=== PATIENT | male | born 1955 | race African-American/Black ===

== ENCOUNTER 2016-12-07 08:04 | Emergency (ER) | payer MEDICARE ==
[~2016-12-07] VITALS: Ht 172.7 cm; Wt 108.4 kg
[~2016-12-07 08:04] MED LIST: AMLO10TA2 PO; AMOX875T PO; ASPI81TA2 PO; ATOR40TA59 PO; FURO-69 PO; LOSA50TA6 PO; MELO-150 PO; METO50TA2 PO; OMEP20TA PO; PHEN118S5 PO; POTA10CA PO; TAMS0.4C2 PO
[2016-12-07 08:25] VITALS: BP 164/84
[2016-12-07] MEDS ORDERED: HYDR-971 PO (08:29)
[2016-12-07] MEDS ORDERED: PENI500T PO (08:29)
[2016-12-07] MEDS ORDERED: PENICILLIN V K 250 MG TABLET. PO ONE (08:30)
--- NOTE | 2016-12-07 08:30 | PHYS DOC ---
Past Medical History Past Medical History: High Cholesterol, Hypertension, Other Additional Past Medical Histor: urinary retention Past Surgical History: No Surgical History Alcohol Use: Occasionally Drug Use: None Adult General Chief Complaint Chief Complaint: DENTAL PROBLEM HPI HPI Patient is a 61 year old male who presents with dental pain for one week. Patient states that his left rear lower molar has been painful throughout the week. Patient started getting mild swelling along his left jaw. Patient states that the pain currently is 10 out of 10. Patient states that the pain worsens with direct pressure to the tooth. Patient has not taken any medications to help with symptoms. Patient does not have a dentist at this time. Patient denies any other complaints. Review of Systems Review of Systems Constitutional: Denies fever or chills [] Eyes: Denies change in visual acuity, redness, or eye pain [] HENT: Dental pain, Denies nasal congestion or sore throat [] Respiratory: Denies cough or shortness of breath [] Cardiovascular: No additional information not addressed in HPI [] GI: Denies abdominal pain, nausea, vomiting, bloody stools or diarrhea [] Musculoskeletal: Denies back pain or joint pain [] Integument: Denies rash or skin lesions [] Neurologic: Denies headache, focal weakness or sensory changes [] Current Medications Current Medications Current Medications Medications (Trade) Dose Ordered Sig/Stacey Start Time Stop Time Status Last Admin Dose Admin Penicillin V Potassium (Veetid) 500 mg 1X ONCE 12/07/16 08:30 12/07/16 08:31 DC 12/07/16 09:11 500 MG Allergies Allergies Allergies Coded Allergies Type Severity Reaction Last Updated Verified No Known Drug Allergies 11/24/15 No Physical Exam Physical Exam Constitutional: Well developed, well nourished, no acute distress, non-toxic appearance. [] HENT: Normocephalic, atraumatic, bilateral external ears normal, mild left history of mandibular swelling, tenderness to palpation over tooth #18, no gingival fluctuance, gingival tenderness present near tooth #18, oropharynx moist, no oral exudates, nose normal. [] Eyes: PERRLA, EOMI, conjunctiva normal, no discharge. [] Neck: Normal range of motion, no tenderness, supple, no stridor. [] Cardiovascular:Heart rate regular rhythm, no murmur [] Lungs & Thorax: Bilateral breath sounds clear to auscultation [] Abdomen: Bowel sounds normal, soft, no tenderness, no masses, no pulsatile masses. [] Skin: Warm, dry, no erythema, no rash. [] Extremities: No tenderness, no cyanosis, no clubbing, ROM intact, no edema. [] Neurologic: Alert and oriented X 3, normal motor function, normal sensory function, no focal deficits noted. [] Current Patient Data Vital Signs Vital Signs Date Time Temp Pulse Resp B/P Pulse Ox O2 Delivery O2 Flow Rate FiO2 12/07/16 08:25 98.5 66 17 98 Room Air 98.5 EKG EKG Not performed [] Radiology/Procedures Radiology/Procedures Not performed [] Course & Med Decision Making Course & Med Decision Making Pertinent Labs and Imaging studies reviewed. (See chart for details) The patient has direct tenderness over tooth #18 with mild soft tissue swelling. Patient may have signs of early apical abscess in this area and thus will need treatment with antibiotics for resolution of active infection. The patient was started on penicillin. Patient written for [place] and penicillin for outpatient treatment. Advise follow-up with dentist in 5-7 days. The patient was provided with a list of dental clinics in the area. Advised return emergency department for any worsening symptoms. Patient voiced understanding and in agreement with treatment plan. Dragon Disclaimer Dragon Disclaimer This electronic medical record was generated, in whole or in part, using a voice recognition dictation system. Departure Departure Impression: Primary Impression: Abscess, dental Disposition: 01 HOME, SELF-CARE Condition: IMPROVED Referrals: IGOR BRUNO MD (PCP) Patient Instructions: Dental Abscess Additional Instructions: Follow-up with your dentist in the next 5 days. Return to the emergency department for any worsening symptoms. Scripts Hydrocodone/Apap 5-325 ([place] 5-325 Tablet)1 Each Tablet1-2 Tab PO Q4-6HRS PRN PAIN #20 TAB Prov:GENRAO SHELTON MD 12/07/16 Penicillin V Potassium 500 Mg Tablet1 Tab PO QID #40 TAB Prov:GENARO SHELTON MD 12/07/16 GENARO SHELTON MD Dec 07, 2016 08:30
== END 2016-12-07 09:12 | disposition home or self-care (01) ==
LOC: ER 08:04
DX: K04.7 Periapical abscess without sinus (principal); E78.00 Pure hypercholesterolemia, unspecified; I10 Essential (primary) hypertension
CPT/HCPCS: 99283

== ENCOUNTER → 2017-05-21 | Outpatient (CLI) | payer MEDICARE ==
[2017-04-25 11:00] VITALS: BP 136/63
[~2017-05-21] MED LIST changes: +ASPI-630 PO; -ASPI81TA2 PO; +ATORVASTATIN CA80 MG PO; +CONTRAST GIVEN MC PRN; +DEXL60CA2 PO; +FINA5TAB4 PO; +FURO-68 PO; +HYDR-971 PO; +IOHEXOL 240 MG/ML 50ML VIAL. PO ONE; +IOHEXOL 300 MG/ML 75 ML VIAL IV ONE; -MELO-150 PO; +MELO15TA23 PO; -OMEP20TA PO; +OMEP20TA8 PO; +PENI500T PO; -POTA10CA PO; +POTA20TA82 PO; +POTASSIUM CHLO10 MEQ PO; +PRAS10TA9 PO
--- NOTE | 2017-05-21 10:01 | RAD ---
CT of the abdomen with and without contrast, 05/21/2017: History: Pancreatic abnormality Multidetector CT imaging was performed prior to and following an IV bolus injection of iodinated contrast material. Oral contrast material was also administered for GI tract opacification. Comparison is made to a study from 12/01/2015. On the prior study, a small focus of increased density was seen in the pancreatic head. The current images demonstrate a small bubble of gas at the same level. The findings are compatible with a small duodenal diverticulum which intermittently contains gas or oral contrast. Minimal reflux of gas or contrast into the distal common bile duct could also give this appearance. Has there been a previous sphincterotomy? There is no evidence of a pancreatic mass. No hepatic mass or bile duct dilatation is seen. The gallbladder is unremarkable. The spleen is of normal size. No renal or adrenal abnormality is detected. There is mild aortoiliac calcific plaquing. No retroperitoneal or mesenteric adenopathy is seen. The visualized bowel loops are unremarkable. No free fluid or free air is seen in the abdomen. There is a calcified granuloma in the left base. There is a tiny benign-appearing perifissural nodule in the left lower chest which is unchanged since 12/01/2015. IMPRESSION: No significant pancreatic abnormality is detected. PQRS Compliance Statement: One or more of the following individualized dose reduction techniques were utilized for this examination: 1. Automated exposure control 2. Adjustment of the mA and/or kV according to patient size 3. Use of iterative reconstruction technique
== END | disposition home or self-care (01) ==
LOC: CT 06:40
PROVIDERS: ATTEND Specialist
DX: R10.9 Unspecified abdominal pain (principal)
CPT/HCPCS: 74170; Q9966; Q9967

== ENCOUNTER 2017-05-23 00:25 | Observation (INO) | payer MEDICARE ==
[~2017-05-23] VITALS: Ht 172.7 cm; Wt 106.6 kg
[~2017-05-23 00:25] MED LIST changes: -CONTRAST GIVEN MC PRN; -IOHEXOL 240 MG/ML 50ML VIAL. PO ONE; -IOHEXOL 300 MG/ML 75 ML VIAL IV ONE
[2017-05-23] MEDS ORDERED: NITROGLYCERIN SUBLINGUAL 0.4 MG BOTTLE OF 25. SL PRN (00:30)
[2017-05-23 00:58] LABS: BASO # 0.1 x10^3/uL (0.0-0.2); BASO % 1 % (0-3); EOS % 5 % (0-3); HEMATOCRIT 40.2 % (39.0-53.0); HEMOGLOBIN 13.3 g/dL (13.0-17.5); LYMPH # 2.4 x10^3/uL (1.0-4.8); LYMPH % 29 % (24-48); MEAN CORPUSCULAR HEMOGLOBIN 30 pg (25-35); MEAN CORPUSCULAR HGB CONC 33 g/dL (31-37); MEAN CORPUSCULAR VOLUME 89 fL (79-100); MONO % 7 % (0-9); NEUT % 58 % (31-73); PLATELET COUNT 138 x10^3/uL (140-400); RED CELL DISTRIBUTION WIDTH 12.9 % (11.5-14.5); WHITE BLOOD COUNT 8.2 x10^3/uL (4.0-11.0)
[2017-05-23] MEDS ORDERED: ASPIRIN CHEWABLE 81 MG TABLET. PO ONE (01:00)
[2017-05-23 01:09] LABS: CALCIUM 9.5 mg/dL (8.5-10.1); CREATININE 1.1 mg/dL (0.7-1.3); GFR 81.8; POTASSIUM 3.5 mmol/L (3.5-5.1)
[2017-05-23 01:14] LABS: DIRECT BILIRUBIN 0.2 mg/dL (0.0-0.2); TOTAL BILIRUBIN 0.5 mg/dL (0.2-1.0); TOTAL PROTEIN 8.1 g/dL (6.4-8.2)
[2017-05-23] MEDS ORDERED: MORPHINE SULFATE 2 MG/ML DISP.SYRIN. IV PRN (02:30)
[2017-05-23] MEDS ORDERED: ONDANSETRON PF 4 MG/2 ML VIAL. IV PRN ×2 (02:30→10:00)
[2017-05-23] MEDS ORDERED: METO50TA2 PO (03:29)
[2017-05-23] MEDS ORDERED: AMLO10TA2 PO (03:29)
[2017-05-23] MEDS ORDERED: LABETALOL 20 MG/4 ML DISP.SYRIN. IVP PRN (04:45)
[2017-05-23 05:00] VITALS: BP 158/76
--- NOTE | 2017-05-23 05:24 | PHYS DOC ---
Past Medical History Past Medical History: CHF, GERD, High Cholesterol, Hypertension, Other Additional Past Medical Histor: urinary retention, SLEEP APNEA, GOUT, BPH, Past Surgical History: No Surgical History Alcohol Use: Occasionally Drug Use: None Adult General Chief Complaint Chief Complaint: CHEST PAIN HPI HPI 51-year-old male presenting to the emergency department today with chest pain. It is intermittent intermittent for the past couple days. He has a history of stent placement in the past. His pain is intermittent sharp nonradiating and without alleviating factors. Negative for hemoptysis, unilateral leg swelling personal or family history of blood clotting disorders or recent immobilization. Review of systems is negative for shortness of breath fevers chills nausea vomiting. All other review of systems is negative unless otherwise noted in history of present illness. ED course: 61-year-old gentleman with a history of stents who presents the emergency department with chest pain. EKG obtained was unremarkable.EKG shows sinus rhythm with regular rate. Normal intervals. Normal axis. ST segments are congruent. Not suggestive of ACS. Reviewed by myself. Troponin negative initially. Otherwise blood work unremarkable. Given his strong history of cardiac disease, the patient was admitted for serial troponins, cardiac consultation, further evaluation workup and care. Review of Systems Review of Systems SEE ABOVE. Current Medications Current Medications Current Medications Medications (Trade) Dose Ordered Sig/Stacey Start Time Stop Time Status Last Admin Dose Admin Aspirin (Children'S Aspirin) 324 mg 1X ONCE 05/23/17 01:00 05/23/17 01:01 DC 05/23/17 01:13 324 MG Nitroglycerin (Nitrostat) 0.4 mg PRN Q5MIN PRN 05/23/17 00:30 05/23/17 02:44 0.4 MG Allergies Allergies Allergies Coded Allergies Type Severity Reaction Last Updated Verified No Known Drug Allergies 11/24/15 No Physical Exam Physical Exam SEE ABOVE Constitutional: Well developed, well nourished, no acute distress, non-toxic appearance. [] HENT: Normocephalic, atraumatic, bilateral external ears normal, oropharynx moist, no oral exudates, nose normal. [] Eyes: PERRLA, EOMI, conjunctiva normal, no discharge. [] Neck: Normal range of motion, no tenderness, supple, no stridor. [] Cardiovascular:Heart rate regular rhythm, no murmur [] Lungs & Thorax: Bilateral breath sounds clear to auscultation [] Abdomen: Bowel sounds normal, soft, no tenderness, no masses, no pulsatile masses. [] Skin: Warm, dry, no erythema, no rash. [] Back: No tenderness, no CVA tenderness. [] Extremities: No tenderness, no cyanosis, no clubbing, ROM intact, no edema. [] Neurologic: Alert and oriented X 3, normal motor function, normal sensory function, no focal deficits noted. [] Psychologic: Affect normal, judgement normal, mood normal. [] Current Patient Data Vital Signs Vital Signs Date Time Temp Pulse Resp B/P (MAP) Pulse Ox O2 Delivery O2 Flow Rate FiO2 05/23/17 02:06 61 18 155/77 (103) 96 Room Air 05/23/17 00:45 97.6 97.6 Lab Values Laboratory Tests Test 05/23/17 00:45 White Blood Count 8.2 x10^3/uL (4.0-11.0) Red Blood Count 4.50 x10^6/uL (4.30-5.70) Hemoglobin 13.3 g/dL (13.0-17.5) Hematocrit 40.2 % (39.0-53.0) Mean Corpuscular Volume 89 fL (79-100) Mean Corpuscular Hemoglobin 30 pg (25-35) Mean Corpuscular Hemoglobin Concent 33 g/dL (31-37) Red Cell Distribution Width 12.9 % (11.5-14.5) Platelet Count 138 x10^3/uL (140-400) L Neutrophils (%) (Auto) 58 % (31-73) Lymphocytes (%) (Auto) 29 % (24-48) Monocytes (%) (Auto) 7 % (0-9) Eosinophils (%) (Auto) 5 % (0-3) H Basophils (%) (Auto) 1 % (0-3) Neutrophils # (Auto) 4.7 x10^3uL (1.8-7.7) Lymphocytes # (Auto) 2.4 x10^3/uL (1.0-4.8) Monocytes # (Auto) 0.6 x10^3/uL (0.0-1.1) Eosinophils # (Auto) 0.4 x10^3/uL (0.0-0.7) Basophils # (Auto) 0.1 x10^3/uL (0.0-0.2) Sodium Level 139 mmol/L (136-145) Potassium Level 3.5 mmol/L (3.5-5.1) Chloride Level 102 mmol/L (98-107) Carbon Dioxide Level 27 mmol/L (21-32) Anion Gap 10 (6-14) Blood Urea Nitrogen 10 mg/dL (8-26) Creatinine 1.1 mg/dL (0.7-1.3) Estimated GFR (Cockcroft-Gault) 81.8 Glucose Level 122 mg/dL (70-99) H Calcium Level 9.5 mg/dL (8.5-10.1) Total Bilirubin 0.5 mg/dL (0.2-1.0) Direct Bilirubin 0.2 mg/dL (0.0-0.2) Aspartate Amino Transferase (AST) 18 U/L (15-37) Alanine Aminotransferase (ALT) 38 U/L (16-63) Alkaline Phosphatase 87 U/L (46-116) Troponin I Quantitative 0.030 ng/mL (0.000-0.055) JC-Hli-G-Type Natriuretic Peptide 58 pg/mL (0-124) Total Protein 8.1 g/dL (6.4-8.2) Albumin 4.0 g/dL (3.4-5.0) Lipase 156 U/L (73-393) Laboratory Tests 05/23/17 00:45 Laboratory Tests 05/23/17 00:45 EKG EKG [] Radiology/Procedures Radiology/Procedures [] Course & Med Decision Making Course & Med Decision Making Pertinent Labs and Imaging studies reviewed. (See chart for details) [] Dragon Disclaimer Dragon Disclaimer This electronic medical record was generated, in whole or in part, using a voice recognition dictation system. Departure Departure Impression: Primary Impression: Chest pain Disposition: ADMITTED INPATIENT Admitting Physician: Lorin Paul Condition: STABLE Referrals: IGOR BRUNO MD (PCP) ANAIS ANDERSON MD May 23, 2017 05:24
--- NOTE | 2017-05-23 06:13 | EKG ---
[facility] [address] [place] [address] Test Date: 2017-05-23 Test Time: 00:30:34 Pat Name: KEYON GREEN Department: Room: [facility] Gender: M Cage Manager: : [id number] Requested By: ANAIS ANDERSON Order Number: [id number] Reading MD: Araceli St Measurements Intervals [place] Rate: 65 P: 35 NH: 158 QRS: 3 QRSD: 78 T: 16 QT: 402 QTc: 419 Interpretive Statements SINUS RHYTHM NORMAL ECG Electronically Signed On 05-27-2017 15:13:[address]
[2017-05-23 07:05] VITALS: BP 134/77
--- NOTE | 2017-05-23 07:33 | RAD ---
Portable chest, 05/23/2017: History: Chest pain Comparison is made to a study from 04/22/2017. The heart size and pulmonary vascularity are normal. No pulmonary infiltrates are seen. There is no evidence of pleural fluid. IMPRESSION: No acute cardiopulmonary abnormality is detected.
[2017-05-23] MEDS ORDERED: hydrALAZINE 20 MG/ML VIAL. IVP PRN (10:00)
[2017-05-23] MEDS ORDERED: ACETAMINOPHEN 325 MG TABLET. PO PRN (10:00)
[2017-05-23] MEDS ORDERED: HYDROcodone/APAP 5/325MG 1 TAB TABLET PO PRN (10:00)
[2017-05-23] MEDS ORDERED: ALBUTEROL SULFATE 2.5 MG/3 ML NEBU. NEB PRN (10:00)
--- NOTE | 2017-05-23 10:02 | PDOC1 ---
History and Physical Identification/Chief Complaint Chief Complaint Date of exam 05/23/2017 10 AM History of present illness: A 51-year-old male patient with the several comorbid conditions and a recent diagnosis diagnosis of coronary artery disease who had drug-eluting stent placed in April 2017 here at [facility] presented to the hospital with complaints of ongoing chest pain located in the left side of the chest described it as coming and going without any aggravating or relieving factors patient denies any exertional symptoms such as increased chest pain or shortness of breath or syncope or leg swellings. He denies any noncompliance with the medications. This morning he is chest pain- free denies any nausea or vomiting or sweating at the time he felt this chest pain. Problems: Past Medical History Past Medical History PAST MEDICAL HISTORY: CHF, sleep apnea, hypertension, hypercholesterolemia, GERD, gout and BPH.CAD PAST SURGICAL HISTORY: PCI FAMILY HISTORY: Unknown to the patient. SOCIAL HISTORY: Lives by himself. No toxic habits. ALLERGIES: No known drug allergies. MEDICATIONS: MAR reconciled with home medications. Cardiovascular: HTN, IL, Hyperlipidemia Pulmonary: Other GI: GERD Renal/: Benign prostatic enlarg. Endocrine: Diabetes Current Problem List Problem List Problems Medical Problems: (1) Chest pain Status: Acute Current Medications Current Medications Current Medications Medications (Trade) Dose Ordered Sig/Stacey Start Time Stop Time Status Last Admin Dose Admin Aspirin (Children'S Aspirin) 324 mg 1X ONCE 05/23/17 01:00 05/23/17 01:01 DC 05/23/17 01:13 324 MG Labetalol HCl (Normodyne) 20 mg PRN Q2HR PRN 05/23/17 04:45 Morphine Sulfate 2 mg PRN Q2HR PRN 05/23/17 02:30 05/24/17 02:29 Nitroglycerin (Nitrostat) 0.4 mg PRN Q5MIN PRN 05/23/17 00:30 05/23/17 02:44 0.4 MG Ondansetron HCl (Zofran) 4 mg PRN Q8HRS PRN 05/23/17 02:30 05/24/17 02:29 Allergies Allergies Allergies Coded Allergies Type Severity Reaction Last Updated Verified No Known Drug Allergies 11/24/15 No ROS Review of System CONSTITUTIONAL: No fever or chills EYES: No recent changes SKIN: No rash or itching CARDIOVASCULAR: No chest pain, syncope, palpitations, or edema RESPIRATORY: No SOB or cough GASTROINTESTINAL: No nausea, vomiting or abdominal pain NEUROLOGICAL: No headaches or weakness ENDOCRINE: No cold or heat intolerance GENITOURINARY: No urgency or frequency of urination MUSCULOSKELETAL: No back pain or joint pain LYMPHATICS: No enlarged lymph nodes PSYCHIATRIC: No anxiety or depression Physical Exam Physical Exam GEN.: No apparent distress. Alert and oriented. HEENT: Head is normocephalic, atraumatic NECK: Supple. LUNGS: Clear to auscultation. HEART: RRR, S1, S2 present. Peripheral pulses intact ABDOMEN: Soft, nontender. Positive bowel sounds. EXTREMITIES: Without any cyanosis. NEUROLOGIC: Normal speech, normal tone PSYCHIATRIC: Normal affect, normal mood. SKIN: No ulcerations Vitals Vitals Vital Signs Date Time Temp Pulse Resp B/P (MAP) Pulse Ox O2 Delivery O2 Flow Rate FiO2 05/23/17 08:00 Room Air 05/23/17 07:05 98.5 60 18 134/77 (96) 95 98.5 Labs Labs Laboratory Tests Test 05/23/17 00:45 White Blood Count 8.2 x10^3/uL (4.0-11.0) Red Blood Count 4.50 x10^6/uL (4.30-5.70) Hemoglobin 13.3 g/dL (13.0-17.5) Hematocrit 40.2 % (39.0-53.0) Mean Corpuscular Volume 89 fL (79-100) Mean Corpuscular Hemoglobin 30 pg (25-35) Mean Corpuscular Hemoglobin Concent 33 g/dL (31-37) Red Cell Distribution Width 12.9 % (11.5-14.5) Platelet Count 138 x10^3/uL (140-400) Neutrophils (%) (Auto) 58 % (31-73) Lymphocytes (%) (Auto) 29 % (24-48) Monocytes (%) (Auto) 7 % (0-9) Eosinophils (%) (Auto) 5 % (0-3) Basophils (%) (Auto) 1 % (0-3) Neutrophils # (Auto) 4.7 x10^3uL (1.8-7.7) Lymphocytes # (Auto) 2.4 x10^3/uL (1.0-4.8) Monocytes # (Auto) 0.6 x10^3/uL (0.0-1.1) Eosinophils # (Auto) 0.4 x10^3/uL (0.0-0.7) Basophils # (Auto) 0.1 x10^3/uL (0.0-0.2) Sodium Level 139 mmol/L (136-145) Potassium Level 3.5 mmol/L (3.5-5.1) Chloride Level 102 mmol/L (98-107) Carbon Dioxide Level 27 mmol/L (21-32) Anion Gap 10 (6-14) Blood Urea Nitrogen 10 mg/dL (8-26) Creatinine 1.1 mg/dL (0.7-1.3) Estimated GFR (Cockcroft-Gault) 81.8 Glucose Level 122 mg/dL (70-99) Calcium Level 9.5 mg/dL (8.5-10.1) Total Bilirubin 0.5 mg/dL (0.2-1.0) Direct Bilirubin 0.2 mg/dL (0.0-0.2) Aspartate Amino Transf (AST/SGOT) 18 U/L (15-37) Alanine Aminotransferase (ALT/SGPT) 38 U/L (16-63) Alkaline Phosphatase 87 U/L (46-116) Troponin I Quantitative 0.030 ng/mL (0.000-0.055) HG-Mpn-S-Type Natriuretic Peptide 58 pg/mL (0-124) Total Protein 8.1 g/dL (6.4-8.2) Albumin 4.0 g/dL (3.4-5.0) Lipase 156 U/L (73-393) Laboratory Tests Test 05/23/17 00:45 White Blood Count 8.2 x10^3/uL (4.0-11.0) Red Blood Count 4.50 x10^6/uL (4.30-5.70) Hemoglobin 13.3 g/dL (13.0-17.5) Hematocrit 40.2 % (39.0-53.0) Mean Corpuscular Volume 89 fL (79-100) Mean Corpuscular Hemoglobin 30 pg (25-35) Mean Corpuscular Hemoglobin Concent 33 g/dL (31-37) Red Cell Distribution Width 12.9 % (11.5-14.5) Platelet Count 138 x10^3/uL (140-400) Neutrophils (%) (Auto) 58 % (31-73) Lymphocytes (%) (Auto) 29 % (24-48) Monocytes (%) (Auto) 7 % (0-9) Eosinophils (%) (Auto) 5 % (0-3) Basophils (%) (Auto) 1 % (0-3) Neutrophils # (Auto) 4.7 x10^3uL (1.8-7.7) Lymphocytes # (Auto) 2.4 x10^3/uL (1.0-4.8) Monocytes # (Auto) 0.6 x10^3/uL (0.0-1.1) Eosinophils # (Auto) 0.4 x10^3/uL (0.0-0.7) Basophils # (Auto) 0.1 x10^3/uL (0.0-0.2) Sodium Level 139 mmol/L (136-145) Potassium Level 3.5 mmol/L (3.5-5.1) Chloride Level 102 mmol/L (98-107) Carbon Dioxide Level 27 mmol/L (21-32) Anion Gap 10 (6-14) Blood Urea Nitrogen 10 mg/dL (8-26) Creatinine 1.1 mg/dL (0.7-1.3) Estimated GFR (Cockcroft-Gault) 81.8 Glucose Level 122 mg/dL (70-99) Calcium Level 9.5 mg/dL (8.5-10.1) Total Bilirubin 0.5 mg/dL (0.2-1.0) Direct Bilirubin 0.2 mg/dL (0.0-0.2) Aspartate Amino Transf (AST/SGOT) 18 U/L (15-37) Alanine Aminotransferase (ALT/SGPT) 38 U/L (16-63) Alkaline Phosphatase 87 U/L (46-116) Troponin I Quantitative 0.030 ng/mL (0.000-0.055) IB-Lfn-G-Type Natriuretic Peptide 58 pg/mL (0-124) Total Protein 8.1 g/dL (6.4-8.2) Albumin 4.0 g/dL (3.4-5.0) Lipase 156 U/L (73-393) VTE Prophylaxis Ordered VTE Prophylaxis Devices: Yes VTE Pharmacological Prophylaxi: Yes Assessment/Plan Assessment/Plan Chest pain: With recent history of PCI, will monitor 2 more sets of troponins and EKG personally reviewed normal sinus rhythm no acute ST-T wave changes noted , cardiology consult did hold notes reviewed and discussed with cardiology team. Home medications were restarted continual dual antiplatelet therapy. At the time of examination as patient is chest pain-free. Labs and images reviewed Hypertension: Not controlled, start home medications home medications with as needed hydralazine for systolic blood pressure more than 160, all other chronic problems stable Sleep apnea Obesity GERD BPH. LETTY LYLE MD May 23, 2017 10:02
[2017-05-23 10:46] VITALS: BP 144/76
[2017-05-23] MEDS ORDERED: TAMSULOSIN 0.4 MG CAP.ER.24H. PO SCH ×2 (12:00→21:00)
[2017-05-23] MEDS: LOSARTAN POTASSIUM 50 MG TABLET. PO SCH (12:06)
[2017-05-23] MEDS: METOPROLOL TART IMMED RELEASE 25 MG TABLET. PO SCH ×2 (12:07→21:03)
[2017-05-23] MEDS: PANTOPRAZOLE 40 MG TABLET.DR. PO SCH (12:08)
[2017-05-23] MEDS: FUROSEMIDE 40 MG TABLET. PO SCH (12:08)
[2017-05-23] MEDS: amLODIPine BESYLATE 10 MG TABLET PO SCH (12:08)
[2017-05-23] MEDS: ASPIRIN CHEWABLE 81 MG TABLET. PO SCH (12:08)
[2017-05-23] MEDS: FINASTERIDE 5 MG TABLET. PO SCH (12:08)
[2017-05-23] MEDS: POTASSIUM CHLORIDE 20 MEQ TABLET.ER. PO SCH (12:09)
[2017-05-23] MEDS: PRASUGREL 10 MG TABLET. PO SCH (12:09)
[2017-05-23 15:05] VITALS: BP 153/72
[2017-05-23 19:00] VITALS: BP 133/81
--- NOTE | 2017-05-23 20:19 | CARD ---
APPROVED REPORT EXAM: Two-dimensional and M-mode echocardiogram with Doppler and color Doppler. Other Information Quality : GoodHR: 60bpm Rhythm : NSR INDICATION Chest Pain 2D DIMENSIONS RVDd3.7 (2.9-3.5cm)Left Atrium(2D)4.2 (1.6-4.0cm) IVSd1.0 (0.7-1.1cm)Aortic Root(2D)2.9 (2.0-3.7cm) LVDd5.8 (3.9-5.9cm)LVOT Diameter2.3 (1.8-2.4cm) PWd1.0 (0.7-1.1cm)LVDs4.1 (2.5-4.0cm) FS (%) 28.2 %SV88.0 ml LVEF(%)53.8 (>50%) Aortic Valve AoV Peak Alex.102.5cm/sAoV VTI24.3cm AO Peak GR.4.2mmHgLVOT Peak Alex.77.7cm/s AO Mean GR.3mmHgAVA (VMAX)3.17cm2 Mitral Valve MV E Jvatmgcp84.6cm/sMV E Peak Gr.5mmHg MV DECEL [id number] A Fadzyszz50.1cm/s MV E Mean Gr.1mmHgE/A Ratio0.6 MV A [id number] Tricuspid Valve TR P. Wnugzhhf252zf/sTR Peak Gr.32mmHg Pulmonary Vein S1 Nombtyop61.5cm/sD2 Hcgwabyy33.8cm/s PVa [id number] LEFT VENTRICLE The left ventricle is normal size. There is normal left ventricular wall thickness. Left ventricle sy stolic function is mildly impaired. The Ejection Fraction is 40-%. There is mild global hypokinesis o f the left ventricle. Transmitral Doppler flow pattern is Grade I-abnormal relaxation pattern. RIGHT VENTRICLE The right ventricle is normal size. There is normal right ventricular wall thickness. The right ventr icular systolic function is normal. ATRIA The left atrium size is normal. The right atrium size is normal. The interatrial septum is intact wit h no evidence for an atrial septal defect or patent foramen ovale as noted on 2-D or Doppler imaging. AORTIC VALVE The aortic valve is mildly thickened. The aortic valve is trileaflet. Doppler and Color Flow revealed no significant aortic regurgitation. There is no significant aortic valvular stenosis. MITRAL VALVE The mitral valve leaflets are mildly thickened. There is no evidence of mitral valve prolapse. There is no mitral valve stenosis. Doppler and Color Flow revealed mild mitral regurgitation. TRICUSPID VALVE Doppler and Color Flow revealed mild tricuspid regurgitation. The pulmonary artery systolic pressure is estimated at 35 mmHg. There is mild pulmonary hypertension. PULMONIC VALVE The pulmonary valve is not well visualized but appears to opens well. Doppler and Color Flow revealed pulmonic valvular regurgitation. There is no pulmonic valvular stenosis by spectral Doppler. GREAT VESSELS The aortic root is normal in size. The ascending aorta is normal in size. The pulmonary artery is nor mal. The IVC is normal in size and collapses >50% with inspiration. PERICARDIAL EFFUSION There is no evidence of significant pericardial effusion. Critical Notification Critical Value: No <Conclusion> The left ventricle is normal size. There is normal left ventricular wall thickness. Left ventricle systolic function is mildly impaired. The Ejection Fraction is 40-%. Transmitral Doppler flow pattern is Grade I-abnormal relaxation pattern. There is no evidence of significant pericardial effusion. There is no mitral stenosis and a mild mitral regugitation The left atrium is mildly enlarged to 4.2 cms. There is no aortic stenosis or regurgitation The right ventricle is mildly wenlarged Doppler and Color Flow revealed mild tricuspid regurgitation. The pulmonary artery systolic pressure is estimated at 35 mmHg. There is mild pulmonary hypertension. The pulmonic valve is normal
[2017-05-23] MEDS ORDERED: ATORVASTATIN CALCIUM 40 MG TABLET. PO SCH (21:00)
--- NOTE | 2017-05-23 21:42 | PDOC2 ---
Consult: This is a 61-year-old black male comes in with chest pain. Points out that the pain is in his left flank I saw him for a similar pain 3 years ago. Says it comes and goes but last night he decided to come into the emergency room. He's had this pain off and on since being hospitalized last night.` In fact he had one episode just before I saw him at 7 PM. Despite that he was wanting to go home. He had had a CT of the abdomen 3 months ago. It showed a possible small lesion in the pancreas. A repeat CT was done on 05/14. There was no evidence of a mass. He had several areas of obstruction in the circumflex coronary artery and had had several stents placed on 04/24/17. Reviewed the films. The final result was excellent. It is very very unlikely that he has thrombosis in that vessel. Too early for restenosis. Thus is we have a patient who's had a long-standing episode of intermittent left flank pain. Therefore no good reason for the pain but it persists. Looking over the chart he's never been excluded for a pulmonary embolism. Probably should consider doing that this time. Examination he was in no distress. The time of me seeing him he had no pain. Vital signs are stable. The blood pressure is 110/80. Lungs were clear. The heart sounds are normal no murmur or gallop. He is very concerned about a small subcutaneous nodule measuring about 1 cm in diameter over the left infraclavicular region. Abdomen is soft. No edema and no calf tenderness. The distal pulses are palpable. EKG was normal. Troponin was negative. Echocardiogram showed normal systolic function and a grade 1 diastolic dysfunction of the left ventricle. No significant valvular dysfunction. Has mild pulmonary hypertension and mild enlargement of the right ventricle. Impression Mild left flank pain of long-standing duration etiology unclear Cironary artery disease with recent stenting and no reason to be concerned about subacute thrombosis or restenosis. Consider ruling out pulmonary embolism though history is not consistent. Does have mild pulmonary hypertension with no evidence of COPD. Thank you for asking me to see him CHRISTINA ARIAS MD May 23, 2017 21:42
[2017-05-23 23:00] VITALS: BP 129/71
[2017-05-24 03:00] VITALS: BP 126/71
[2017-05-24 06:43] LABS: BASO # 0.1 x10^3/uL (0.0-0.2); BASO % 1 % (0-3); EOS % 5 % (0-3); HEMATOCRIT 42.4 % (39.0-53.0); HEMOGLOBIN 13.9 g/dL (13.0-17.5); LYMPH % 25 % (24-48); MEAN CORPUSCULAR HEMOGLOBIN 29 pg (25-35); MEAN CORPUSCULAR HGB CONC 33 g/dL (31-37); MEAN CORPUSCULAR VOLUME 89 fL (79-100); MONO % 8 % (0-9); NEUT % 62 % (31-73); PLATELET COUNT 144 x10^3/uL (140-400); RED BLOOD COUNT 4.75 x10^6/uL (4.30-5.70); RED CELL DISTRIBUTION WIDTH 12.7 % (11.5-14.5); WHITE BLOOD COUNT 7.9 x10^3/uL (4.0-11.0)
[2017-05-24] MEDS ORDERED: IOHEXOL 300 MG/ML 75 ML VIAL IV ONE (06:45)
[2017-05-24] MEDS ORDERED: CONTRAST GIVEN MC PRN (06:45)
[2017-05-24 06:59] LABS: CREATININE 1.1 mg/dL (0.7-1.3); GFR 81.8; POTASSIUM 3.7 mmol/L (3.5-5.1)
[2017-05-24 07:10] VITALS: BP 144/73
--- NOTE | 2017-05-24 09:00 | RAD ---
Ultrasound chest 05/24/2017 at 0449 hours Indication: Left infraclavicular lump, mild tenderness Comparison: None available Technique: Sonographic imaging of the left upper chest was performed utilizing miller scale and color Doppler. Findings: There is a circumscribed iso to hyperechoic region in the infraclavicular region of the left upper chest measuring 3.5 x 2.3 x 0.9 cm. There is a lobulated hypoechoic central portion measuring 1.9 x 0.6 x 0.7 cm. There is no flow within the cystic or solid portion. There is no skin thickening. Impression: Findings may relate to a liquefying hematoma and correlation with any recent traumatic injury, or clavicular fracture is recommended. Alternatively, this may represent a centrally cystic/necrotic lymph node, however this is less likely given the lack of flow within the solid portions. A dedicated CT neck with IV contrast may be of benefit to assess for any additional subclinical nodules.
[2017-05-24] MEDS: METOPROLOL TART IMMED RELEASE 25 MG TABLET. PO SCH (09:05)
[2017-05-24] MEDS: PANTOPRAZOLE 40 MG TABLET.DR. PO SCH (09:06)
[2017-05-24] MEDS: POTASSIUM CHLORIDE 20 MEQ TABLET.ER. PO SCH (09:06)
[2017-05-24] MEDS: PRASUGREL 10 MG TABLET. PO SCH (09:06)
[2017-05-24] MEDS: amLODIPine BESYLATE 10 MG TABLET PO SCH (09:07)
[2017-05-24] MEDS: ASPIRIN CHEWABLE 81 MG TABLET. PO SCH (09:07)
[2017-05-24] MEDS: FUROSEMIDE 40 MG TABLET. PO SCH (09:07)
[2017-05-24] MEDS: LOSARTAN POTASSIUM 50 MG TABLET. PO SCH (09:08)
[2017-05-24] MEDS: FINASTERIDE 5 MG TABLET. PO SCH (09:09)
--- NOTE | 2017-05-24 09:45 | RAD ---
CT chest with contrast 05/24/2017 0839 hours Indication: Left-sided chest pain. Comparison: Chest CT 12/01/2015 Technique: Multiple axial CT images of the chest were obtained after the administration of intravenous contrast. Coronal and sagittal reformats are provided. Findings: There is adequate opacification of the pulmonary arterial system. No filling defects to suggest a pulmonary embolism. Heart size is borderline in size. Thoracic aorta is normal in caliber. Coronary vascular catheter stations are present. No pericardial effusion. There are no enlarged lymph nodes in the axillary, mediastinal or hilar regions. Thyroid gland is normal. Stable appearance of two 4-5mm pulmonary nodules in the right middle lobe, along the fissure (series 3, images 63 and 59). Stable appearance of a 5 mm nodule in the left lower lobe. No pulmonary infiltrates or pleural effusions. Visualized upper abdomen is limited in evaluation as the timing of the contrast bolus was targeted for evaluation of pulmonary arteries. Tiny hyperdensity in the head of the pancreas has not increased in size measuring approximately 2 mm (series 3, image 132). Impression: 1. No evidence for acute pulmonary embolism. 2. Stable danial fissural nodules, as detailed above. 3. Punctate hyperdensity in the head of the pancreas is stable and may relate to a prominent vessel. PQRS Compliance Statement: One or more of the following individualized dose reduction techniques were utilized for this examination: 1. Automated exposure control 2. Adjustment of the mA and/or kV according to patient size 3. Use of iterative reconstruction technique
--- NOTE | 2017-05-24 10:07 | PDOC3 ---
Discharge Summary Visit Information Date of Admission: May 23, 2017 Date of Discharge: May 24, 2017 Admitting Diagnosis Comment: Chest pain: MSK Hypertension: not controlled, better now Sleep apnea Obesity GERD BPH. Final Diagnosis Problems Medical Problems: (1) Chest pain Status: Acute Brief Hospital Course Allergies Allergies Coded Allergies Type Severity Reaction Last Updated Verified No Known Drug Allergies 11/24/15 No Vital Signs Vital Signs Date Time Temp Pulse Resp B/P (MAP) Pulse Ox O2 Delivery O2 Flow Rate FiO2 05/24/17 09:09 96 Room Air 05/24/17 09:08 51 144/73 05/24/17 07:10 98.5 19 98.5 05/24/17 03:00 2.0 Lab Results Laboratory Tests Test 05/23/17 00:45 05/23/17 11:55 05/23/17 17:50 05/24/17 05:35 White Blood Count 8.2 x10^3/uL (4.0-11.0) 7.9 x10^3/uL (4.0-11.0) Red Blood Count 4.50 x10^6/uL (4.30-5.70) 4.75 x10^6/uL (4.30-5.70) Hemoglobin 13.3 g/dL (13.0-17.5) 13.9 g/dL (13.0-17.5) Hematocrit 40.2 % (39.0-53.0) 42.4 % (39.0-53.0) Mean Corpuscular Volume 89 fL (79-100) 89 fL (79-100) Mean Corpuscular Hemoglobin 30 pg (25-35) 29 pg (25-35) Mean Corpuscular Hemoglobin Concent 33 g/dL (31-37) 33 g/dL (31-37) Red Cell Distribution Width 12.9 % (11.5-14.5) 12.7 % (11.5-14.5) Platelet Count 138 x10^3/uL (140-400) 144 x10^3/uL (140-400) Neutrophils (%) (Auto) 58 % (31-73) 62 % (31-73) Lymphocytes (%) (Auto) 29 % (24-48) 25 % (24-48) Monocytes (%) (Auto) 7 % (0-9) 8 % (0-9) Eosinophils (%) (Auto) 5 % (0-3) 5 % (0-3) Basophils (%) (Auto) 1 % (0-3) 1 % (0-3) Neutrophils # (Auto) 4.7 x10^3uL (1.8-7.7) 4.9 x10^3uL (1.8-7.7) Lymphocytes # (Auto) 2.4 x10^3/uL (1.0-4.8) 2.0 x10^3/uL (1.0-4.8) Monocytes # (Auto) 0.6 x10^3/uL (0.0-1.1) 0.6 x10^3/uL (0.0-1.1) Eosinophils # (Auto) 0.4 x10^3/uL (0.0-0.7) 0.4 x10^3/uL (0.0-0.7) Basophils # (Auto) 0.1 x10^3/uL (0.0-0.2) 0.1 x10^3/uL (0.0-0.2) Sodium Level 139 mmol/L (136-145) 140 mmol/L (136-145) Potassium Level 3.5 mmol/L (3.5-5.1) 3.7 mmol/L (3.5-5.1) Chloride Level 102 mmol/L (98-107) 104 mmol/L (98-107) Carbon Dioxide Level 27 mmol/L (21-32) 28 mmol/L (21-32) Anion Gap 10 (6-14) 8 (6-14) Blood Urea Nitrogen 10 mg/dL (8-26) 11 mg/dL (8-26) Creatinine 1.1 mg/dL (0.7-1.3) 1.1 mg/dL (0.7-1.3) Estimated GFR (Cockcroft-Gault) 81.8 81.8 Glucose Level 122 mg/dL (70-99) 100 mg/dL (70-99) Calcium Level 9.5 mg/dL (8.5-10.1) 9.0 mg/dL (8.5-10.1) Total Bilirubin 0.5 mg/dL (0.2-1.0) Direct Bilirubin 0.2 mg/dL (0.0-0.2) Aspartate Amino Transf (AST/SGOT) 18 U/L (15-37) Alanine Aminotransferase (ALT/SGPT) 38 U/L (16-63) Alkaline Phosphatase 87 U/L (46-116) Troponin I Quantitative 0.030 ng/mL (0.000-0.055) 0.046 ng/mL (0.000-0.055) 0.035 ng/mL (0.000-0.055) HU-Clx-K-Type Natriuretic Peptide 58 pg/mL (0-124) Total Protein 8.1 g/dL (6.4-8.2) Albumin 4.0 g/dL (3.4-5.0) Lipase 156 U/L (73-393) Laboratory Tests Test 05/23/17 11:55 05/23/17 17:50 05/24/17 05:35 Troponin I Quantitative 0.046 ng/mL (0.000-0.055) 0.035 ng/mL (0.000-0.055) White Blood Count 7.9 x10^3/uL (4.0-11.0) Red Blood Count 4.75 x10^6/uL (4.30-5.70) Hemoglobin 13.9 g/dL (13.0-17.5) Hematocrit 42.4 % (39.0-53.0) Mean Corpuscular Volume 89 fL (79-100) Mean Corpuscular Hemoglobin 29 pg (25-35) Mean Corpuscular Hemoglobin Concent 33 g/dL (31-37) Red Cell Distribution Width 12.7 % (11.5-14.5) Platelet Count 144 x10^3/uL (140-400) Neutrophils (%) (Auto) 62 % (31-73) Lymphocytes (%) (Auto) 25 % (24-48) Monocytes (%) (Auto) 8 % (0-9) Eosinophils (%) (Auto) 5 % (0-3) Basophils (%) (Auto) 1 % (0-3) Neutrophils # (Auto) 4.9 x10^3uL (1.8-7.7) Lymphocytes # (Auto) 2.0 x10^3/uL (1.0-4.8) Monocytes # (Auto) 0.6 x10^3/uL (0.0-1.1) Eosinophils # (Auto) 0.4 x10^3/uL (0.0-0.7) Basophils # (Auto) 0.1 x10^3/uL (0.0-0.2) Sodium Level 140 mmol/L (136-145) Potassium Level 3.7 mmol/L (3.5-5.1) Chloride Level 104 mmol/L (98-107) Carbon Dioxide Level 28 mmol/L (21-32) Anion Gap 8 (6-14) Blood Urea Nitrogen 11 mg/dL (8-26) Creatinine 1.1 mg/dL (0.7-1.3) Estimated GFR (Cockcroft-Gault) 81.8 Glucose Level 100 mg/dL (70-99) Calcium Level 9.0 mg/dL (8.5-10.1) Brief Hospital Course Mr. Connell is a 61 old AA male with CAD recent [place], admitted for left sided flank pain, on the lateral sides actually. REcent Jackson. CArds has assessed, non cardiac and I agree. Was concerned about a soft brusing on left clavicular area , deneis recent fall. On blood thinners, US shows resolving hematoma, COUnselled heavy, was so concerned about it, CTA neg for pE and any other acute pathology. REday to go home, COnt cardiac meds, NO new meds started, Pt seen and examined Dw RN time 34 mins Discharge Information Condition at Discharge: Improved, Stable Disposition/Orders: D/C to Home Scheduled Amlodipine Besylate (Amlodipine Besylate), 10 MG PO DAILY, (Reported) Aspirin (Aspirin), 1 TAB PO DAILY, (Reported) Atorvastatin Calcium (Atorvastatin Calcium), 80 MG PO HS, (Reported) Dexlansoprazole (Dexilant), 1 CAP PO DAILY, (Reported) Finasteride (Finasteride), 1 TAB PO DAILY, (Reported) Furosemide (Lasix), 1 TAB PO DAILY, (Reported) Losartan Potassium (Losartan Potassium), 50 MG PO DAILY, (Reported) Metoprolol Tartrate (Metoprolol Tartrate), 1.5 TAB PO BID, (Reported) Potassium Chloride (Potassium Chloride), 20 MEQ PO DAILY, (Reported) Prasugrel Hcl (Effient), 1 TAB PO DAILY Tamsulosin Hcl (Tamsulosin Hcl), 1 CAP PO DAILY, (Reported) Scheduled PRN Hydrocodone/Apap 5-325 (Blanchard 5-325 Tablet), 1-2 TAB PO Q4-6HRS PRN for PAIN Discontinued Medications Omeprazole (Omeprazole), 1 TAB PO DAILY, (Reported) RIKKI BAEZA MD May 24, 2017 10:07
[2017-05-24 11:03] VITALS: BP 145/75
== END 2017-05-24 13:30 | disposition home or self-care (01) ==
LOC: ER 00:25 → 6 SOUTH 02:19
PROVIDERS: ADMIT Internal Medicine; ATTEND Internal Medicine
DX: R07.89 Other chest pain (principal); I11.0 Hypertensive heart disease with heart failure; I50.9 Heart failure, unspecified; E66.9 Obesity, unspecified; E78.00 Pure hypercholesterolemia, unspecified; G47.30 Sleep apnea, unspecified; I25.10 Atherosclerotic heart disease of native coronary artery without angina pectoris; K21.9 Gastro-esophageal reflux disease without esophagitis; M10.9 Gout, unspecified; N40.1 Benign prostatic hyperplasia with lower urinary tract symptoms; Z79.82 Long term (current) use of aspirin; Z98.61 Coronary angioplasty status
CPT/HCPCS: 36415; 71010; 71275; 76604; 80048; 80076; 83690; 83880; 84484; 85027; 93005; 93306; 94250; 94760; 97161; 99285; A6539; G0378; G8978; G8980; Q9967; G0379

== ENCOUNTER 2017-06-02 19:42 | Emergency (ER) | payer MEDICARE ==
[~2017-06-02] VITALS: Ht 172.7 cm; Wt 104.3 kg
[2017-06-02 20:15] LABS: BILIRUBIN,URINE NEGATIVE (NEG); GLUCOSE,URINE NEGATIVE (NEG); NITRITE,URINE NEGATIVE (NEG); PROTEIN,URINE NEGATIVE (NEG-TRACE); UROBILINOGEN,URINE 0.2 mg/dL (0.2 mg/dL)
--- NOTE | 2017-06-02 20:19 | PHYS DOC ---
Past Medical History Past Medical History: CHF, GERD, High Cholesterol, Hypertension, Other Additional Past Medical Histor: urinary retention, SLEEP APNEA, GOUT, BPH, Past Surgical History: No Surgical History Alcohol Use: Occasionally Drug Use: None Adult General Chief Complaint Chief Complaint: BLOOD IN URINE [facility] HPI Patient is a 61 year old male with history of CHF, hypertension, high cholesterol, who presents today complaining of hematuria that he noted today. Patient is also complaining of left flank pain for a week. He states he was admitted in the hospital a couple days ago for the same flank pain, he states they did test and they could not find anything wrong. Patient denies any urgency frequency or dysuria. Denies any history of kidney stones. Denies any nausea vomiting. Denies any fever. Review of Systems Review of Systems Constitutional: Denies fever or chills [] Eyes: Denies change in visual acuity, redness, or eye pain [] HENT: Denies nasal congestion or sore throat [] Respiratory: Denies cough or shortness of breath [] Cardiovascular: No additional information not addressed in HPI [] GI: Denies abdominal pain, nausea, vomiting, bloody stools or diarrhea [] : Left flank pain and hematuria [] Musculoskeletal: Denies back pain or joint pain [] Integument: Denies rash or skin lesions [] Neurologic: Denies headache, focal weakness or sensory changes [] Endocrine: Denies polyuria or polydipsia [] Current Medications Current Medications Current Medications Medications (Trade) Dose Ordered Sig/[facility] Start Time Stop Time Status Last Admin Dose Admin Ketorolac Tromethamine (Toradol) 30 mg 1X ONCE 06/02/17 20:45 06/02/17 20:46 DC 06/02/17 20:47 30 MG Allergies Allergies Allergies Coded Allergies Type Severity Reaction Last Updated Verified No Known Drug Allergies 11/24/15 No Physical Exam Physical Exam Constitutional: Well developed, well nourished, no acute distress, non-toxic appearance. [] HENT: Normocephalic, atraumatic, bilateral external ears normal, oropharynx moist, no oral exudates, nose normal. [] Eyes: PERRLA, EOMI, conjunctiva normal, no discharge. [] Neck: Normal range of motion, no tenderness, supple, no stridor. [] Cardiovascular:Heart rate regular rhythm, no murmur [] Lungs & Thorax: Bilateral breath sounds clear to auscultation [] Abdomen: Bowel sounds normal, soft, no tenderness, no masses, no pulsatile masses. [] Skin: Warm, dry, no erythema, no rash. [] Back: No tenderness, no CVA tenderness. [] Extremities: No tenderness, no cyanosis, no clubbing, ROM intact, no edema. [] Neurologic: Alert and oriented X 3, normal motor function, normal sensory function, no focal deficits noted. [] Psychologic: Affect normal, judgement normal, mood normal. [] Current Patient Data Vital Signs Vital Signs Date Time Temp Pulse Resp B/P (MAP) Pulse Ox O2 Delivery O2 Flow Rate FiO2 06/02/17 21:15 54 22 175/92 (119) 98 Room Air 06/02/17 20:00 98.1 98.1 Lab Values Laboratory Tests Test 06/02/17 20:08 06/02/17 20:15 06/02/17 20:20 06/02/17 20:29 Urine Collection Type Unknown Urine Color Yellow Urine Clarity Clear Urine pH 6.0 Urine Specific [place] <=1.005 Urine Protein Negative mg/dL (NEG-TRACE) Urine Glucose (UA) Negative mg/dL (NEG) Urine Ketones (Stick) Negative mg/dL (NEG) Urine Blood Negative (NEG) Urine Nitrite Negative (NEG) Urine Bilirubin Negative (NEG) Urine Urobilinogen Dipstick 0.2 mg/dL (0.2 mg/dL) Urine Leukocyte Esterase Negative (NEG) Urine RBC Occ /HPF (0-2) Urine WBC Occ /HPF (0-4) Urine Squamous Epithelial Cells Few /LPF Urine Bacteria 0 /HPF (0-FEW) Urine Opiates Screen Neg (NEG) Urine Methadone Screen Neg (NEG) Urine Barbiturates Neg (NEG) Urine Phencyclidine Screen Neg (NEG) Urine Amphetamine/Methamphetamine Neg (NEG) Urine Benzodiazepines Screen Neg (NEG) Urine Cocaine Screen Neg (NEG) Urine Cannabinoids Screen Neg (NEG) Urine Ethyl Alcohol Neg (NEG) White Blood Count 7.1 x10^3/uL (4.0-11.0) Red Blood Count 4.36 x10^6/uL (4.30-5.70) Hemoglobin 12.8 g/dL (13.0-17.5) L Hematocrit 38.7 % (39.0-53.0) L Mean Corpuscular Volume 89 fL (79-100) Mean Corpuscular Hemoglobin 29 pg (25-35) Mean Corpuscular Hemoglobin Concent 33 g/dL (31-37) Red Cell Distribution Width 12.7 % (11.5-14.5) Platelet Count 139 x10^3/uL (140-400) L Neutrophils (%) (Auto) 65 % (31-73) Lymphocytes (%) (Auto) 22 % (24-48) L Monocytes (%) (Auto) 7 % (0-9) Eosinophils (%) (Auto) 5 % (0-3) H Basophils (%) (Auto) 1 % (0-3) Neutrophils # (Auto) 4.6 x10^3uL (1.8-7.7) Lymphocytes # (Auto) 1.6 x10^3/uL (1.0-4.8) Monocytes # (Auto) 0.5 x10^3/uL (0.0-1.1) Eosinophils # (Auto) 0.4 x10^3/uL (0.0-0.7) Basophils # (Auto) 0.1 x10^3/uL (0.0-0.2) Sodium Level 141 mmol/L (136-145) Potassium Level 3.7 mmol/L (3.5-5.1) Chloride Level 104 mmol/L (98-107) Carbon Dioxide Level 29 mmol/L (21-32) Anion Gap 8 (6-14) Blood Urea Nitrogen 13 mg/dL (8-26) Creatinine 1.1 mg/dL (0.7-1.3) Estimated GFR (Cockcroft-Gault) 81.8 BUN/Creatinine Ratio 12 (6-20) Glucose Level 101 mg/dL (70-99) H Calcium Level 8.6 mg/dL (8.5-10.1) Total Bilirubin 0.5 mg/dL (0.2-1.0) Aspartate Amino Transferase (AST) 19 U/L (15-37) Alanine Aminotransferase (ALT) 35 U/L (16-63) Alkaline Phosphatase 86 U/L (46-116) Total Protein 7.9 g/dL (6.4-8.2) Albumin 3.9 g/dL (3.4-5.0) Albumin/Globulin Ratio 1.0 (1.0-1.7) Lipase 193 U/L (73-393) Ethyl Alcohol Level < 10 mg/dL (0-10) Laboratory Tests 06/02/17 20:20 Laboratory Tests 06/02/17 20:29 EKG EKG [] Radiology/Procedures Radiology/Procedures [] Course & Med Decision Making Course & Med Decision Making Pertinent Labs and Imaging studies reviewed. (See chart for details) This is a 61-year-old male patient who presents today with left flank pain and hematuria.Patient's urine is negative for infection or negative for blood, CBC CMP lipase with no acute findings. Patient was discharged with instructions to follow-up with the urologist which we provided. He stated he voided in the ED with no blood in his urine. We did not do a CT on him because he had a CTA couple days ago for abdomen and pelvic which was negative. Dragon Disclaimer Dragon Disclaimer This electronic medical record was generated, in whole or in part, using a voice recognition dictation system. Departure Departure Impression: Primary Impression: Hematuria Disposition: 01 HOME, SELF-CARE Condition: STABLE Referrals: IGOR BRUNO MD (PCP) JUNIOR ASHLEY MD follow up with the urologist provided as soon as you can Patient Instructions: Hematuria-Brief Additional Instructions: You were seen for blood in your urine, the urine we sent to lab was negative for blood or infection. We highly recommend you follow-up with the urologist provided in the next 7 days as well as her PCP. Come back to the ED if symptoms worsen. Problem Qualifiers Primary Impression: Hematuria Hematuria type: unspecified type Qualified Codes: R31.9 - Hematuria, unspecified HEIDYELSA HALL [employer] SITTER Jun 02, 2017 20:19
[2017-06-02 20:37] LABS: BASO # 0.1 x10^3/uL (0.0-0.2); BASO % 1 % (0-3); EOS % 5 % (0-3); HEMATOCRIT 38.7 % (39.0-53.0); HEMOGLOBIN 12.8 g/dL (13.0-17.5); LYMPH # 1.6 x10^3/uL (1.0-4.8); LYMPH % 22 % (24-48); MEAN CORPUSCULAR HEMOGLOBIN 29 pg (25-35); MEAN CORPUSCULAR HGB CONC 33 g/dL (31-37); MEAN CORPUSCULAR VOLUME 89 fL (79-100); MONO % 7 % (0-9); NEUT % 65 % (31-73); PLATELET COUNT 139 x10^3/uL (140-400); RED BLOOD COUNT 4.36 x10^6/uL (4.30-5.70); RED CELL DISTRIBUTION WIDTH 12.7 % (11.5-14.5); WHITE BLOOD COUNT 7.1 x10^3/uL (4.0-11.0)
[2017-06-02 20:40] LABS: BARBITURATES NEG (NEG); BENZODIAZEPINES NEG (NEG); CANNABINOIDS NEG (NEG); COCAINE NEG (NEG); METHADONE NEG (NEG); OPIATES NEG (NEG); PHENCYCLIDINE NEG (NEG)
[2017-06-02] MEDS ORDERED: KETOROLAC TROMETHAMINE 30 MG/ML INJ. IV ONE (20:45)
[2017-06-02 20:49] LABS: RBC,URINE OCC /HPF (0-2); WBC,URINE OCC /HPF (0-4)
[2017-06-02 20:50] LABS: BACTERIA,URINE 0 /HPF (0-FEW); SQUAMOUS EPITHELIAL CELL,UR FEW /LPF
[2017-06-02 20:52] LABS: CALCIUM 8.6 mg/dL (8.5-10.1); CREATININE 1.1 mg/dL (0.7-1.3); GFR 81.8; POTASSIUM 3.7 mmol/L (3.5-5.1)
[2017-06-02 20:59] LABS: ALBUMIN 3.9 g/dL (3.4-5.0); TOTAL BILIRUBIN 0.5 mg/dL (0.2-1.0); TOTAL PROTEIN 7.9 g/dL (6.4-8.2)
[2017-06-02 22:15] VITALS: BP 168/82
== END 2017-06-02 22:35 | disposition home or self-care (01) ==
LOC: ER 19:42
DX: R31.9 Hematuria, unspecified (principal); R10.9 Unspecified abdominal pain; I11.0 Hypertensive heart disease with heart failure; I50.9 Heart failure, unspecified; K21.9 Gastro-esophageal reflux disease without esophagitis; E78.00 Pure hypercholesterolemia, unspecified; M10.9 Gout, unspecified; N40.0 Benign prostatic hyperplasia without lower urinary tract symptoms; G47.30 Sleep apnea, unspecified
CPT/HCPCS: 36415; 80053; 80307; 81001; 83690; 85027; 96374; 99284; G0480; J1885; G0481; G0479

== ENCOUNTER 2017-11-17 10:21 | Emergency (ER) | payer MEDICARE ==
[2017-11-17 10:46] LABS: ADD MAN DIFF? NO
[2017-11-17 10:52] LABS: BASO # 0.1 x10^3/uL (0.0-0.2); BASO % 1 % (0-3); EOS # 0.4 x10^3/uL (0.0-0.7); EOS % 5 % (0-3); HEMATOCRIT 43.5 % (39.0-53.0); HEMOGLOBIN 14.1 g/dL (13.0-17.5); LYMPH # 1.7 x10^3/uL (1.0-4.8); LYMPH % 19 % (24-48); MEAN CORPUSCULAR HEMOGLOBIN 29 pg (25-35); MEAN CORPUSCULAR HGB CONC 33 g/dL (31-37); MEAN CORPUSCULAR VOLUME 90 fL (79-100); MONO # 0.5 x10^3/uL (0.0-1.1); MONO % 6 % (0-9); NEUT # 6.2 x10^3uL (1.8-7.7); NEUT % 70 % (31-73); PLATELET COUNT 146 x10^3/uL (140-400); RED BLOOD COUNT 4.85 x10^6/uL (4.30-5.70); WHITE BLOOD COUNT 8.9 x10^3/uL (4.0-11.0)
[2017-11-17 10:58] LABS: PROTHROMBIN TIME PATIENT 12.9 SEC (11.7-14.0)
[2017-11-17 11:04] LABS: ANION GAP 11 (6-14); BLOOD UREA NITROGEN 18 mg/dL (8-26); CALCIUM 9.1 mg/dL (8.5-10.1); CARBON DIOXIDE 26 mmol/L (21-32); CHLORIDE 105 mmol/L (98-107); CREATININE 1.1 mg/dL (0.7-1.3); GFR 81.5; GLUCOSE 122 mg/dL (70-99); SODIUM 142 mmol/L (136-145)
[2017-11-17 11:12] LABS: ALBUMIN 4.1 g/dL (3.4-5.0); ALK PHOS 72 U/L (46-116); ALT (SGPT) 33 U/L (16-63); AST (SGOT) 17 U/L (15-37); DIRECT BILIRUBIN 0.1 mg/dL (0.0-0.2); LIPASE 141 U/L (73-393); MAGNESIUM 2.1 mg/dL (1.8-2.4); TOTAL BILIRUBIN 0.5 mg/dL (0.2-1.0); TOTAL PROTEIN 8.4 g/dL (6.4-8.2)
[2017-11-17 11:15] LABS: TROPONINI 0.034 ng/mL (0.000-0.055)
[2017-11-17 11:17] LABS: CKMB INDEX 0.6 % (0-4); CKMB MASS 0.7 ng/mL (0.0-3.6); CREATINE KINASE 120 U/L (39-308)
[2017-11-17 11:17] LABS: NT-PRO BNP 39 pg/mL (0-124); THYROID STIM HORMONE (TSH) 1.335 uIU/mL (0.358-3.74)
[2017-11-17] MEDS: ASPIRIN CHEWABLE 81 MG TABLET. PO (11:21)
[2017-11-17] MEDS: MORPHINE SULFATE 4 MG/ML DISP.SYRIN. IV/SQ (11:22)
[2017-11-17] MEDS ORDERED: NITROGLYCERIN SUBLINGUAL 0.4 MG BOTTLE OF 25. SL (11:30)
== END 2017-11-17 13:03 | disposition left against medical advice (07) ==
LOC: ER 10:21 → ED HOLD 12:27 → ER 13:03
DX: R07.89 Other chest pain (principal); I11.0 Hypertensive heart disease with heart failure; I50.9 Heart failure, unspecified; K21.9 Gastro-esophageal reflux disease without esophagitis; E78.00 Pure hypercholesterolemia, unspecified; G47.30 Sleep apnea, unspecified; M10.9 Gout, unspecified; N40.0 Benign prostatic hyperplasia without lower urinary tract symptoms; Z95.5 Presence of coronary angioplasty implant and graft
CPT/HCPCS: 71045; 80048; 80076; 82553; 83690; 83735; 83880; 84443; 84484; 85025; 85610; 93005; 96374; 99285-25; J2270

== ENCOUNTER → 2018-05-23 | Outpatient (CLI) | payer MEDICARE | END | disposition home or self-care (01) | LOC: US 06:38 | DX: E04.2 Nontoxic multinodular goiter (principal) | CPT/HCPCS: 76536 ==

== ENCOUNTER → 2019-03-14 | Day surgery (SDC) | payer MEDICARE ==
[~2019-03-14] MED LIST changes: -AMLO10TA2 PO; +AMLO10TA8 PO; +CLIN150C14 PO; +HYDR-2761 PO; +HYDR-3164 PO; -HYDR-971 PO; +HYDROmorphone 2 MG/ML VIAL IV PRN; +IV RINGERS,LACTATED 1000ML 1,000 ML IV SCH; +LIDOCAINE 1% PF 2 ML VIAL. ID PRN; +LIDOCAINE 2% PF 5 ML VIAL. ONE; +LOSA-73 PO; -LOSA50TA6 PO; -METO50TA2 PO; +METO50TA6 PO; +MORPHINE SULFATE 2 MG/ML VIAL. IV PRN; +ONDANSETRON PF 4 MG/2 ML VIAL. IV PRN; +POTA10TA12 PO; -POTASSIUM CHLO10 MEQ PO; +PROCHLORPERAZINE 10 MG/2 ML VIAL. IV PRN; +PROPOFOL 40 ML IV ONE; +fentaNYL PF VIAL 100 MCG/2 ML VIAL IV PRN
[2019-03-14 08:28] VITALS: BP 189/78
== END | disposition home or self-care (01) ==
LOC: ENDOS 06:21
PROVIDERS: ATTEND Internal Medicine Gastroenterology
DX: Z12.11 Encounter for screening for malignant neoplasm of colon (principal); K64.0 First degree hemorrhoids; I10 Essential (primary) hypertension; E78.5 Hyperlipidemia, unspecified; Z72.89 Other problems related to lifestyle; Z86.010 Personal history of colon polyps; Z79.899 Other long term (current) drug therapy
CPT/HCPCS: G0105; J2001; J2704; 45378

== ENCOUNTER 2019-12-25 10:01 | Emergency (ER) | payer MEDICARE ==
[~2019-12-25] VITALS: Ht 172.7 cm; Wt 111.7 kg
[~2019-12-25 10:01] MED LIST changes: -HYDROmorphone 2 MG/ML VIAL IV PRN; -IV RINGERS,LACTATED 1000ML 1,000 ML IV SCH; -LIDOCAINE 1% PF 2 ML VIAL. ID PRN; -LIDOCAINE 2% PF 5 ML VIAL. ONE; -MORPHINE SULFATE 2 MG/ML VIAL. IV PRN; -ONDANSETRON PF 4 MG/2 ML VIAL. IV PRN; +POTA20TA4 PO; -POTA20TA82 PO; -PROCHLORPERAZINE 10 MG/2 ML VIAL. IV PRN; -PROPOFOL 40 ML IV ONE; -fentaNYL PF VIAL 100 MCG/2 ML VIAL IV PRN
--- NOTE | 2019-12-25 10:22 | PHYS DOC ---
Past Medical History Past Medical History: CAD, CHF, GERD, High Cholesterol, Hypertension, Other Additional Past Medical Histor: urinary retention, SLEEP APNEA, GOUT, BPH, Past Surgical History: Other Additional Past Surgical Histo: 2 CARDIAC STENTS Smoking Status: Never Smoker Alcohol Use: Occasionally Drug Use: None Adult General Chief Complaint Chief Complaint: ABDOMINAL PAIN HPI HPI Patient is a 64 year old male who presents with L sided abdominal pain and L sided chest pain. The pain is intermittent in nature and has been ongoing for 3- 4 days. The patient states his last bowel movement was this morning and denies fever, n/v/d. He states that sitting up makes the pain better but is laying down in bed on examination and is not currently having the pain. Review of Systems Review of Systems Constitutional: Denies fever or chills [] Eyes: Denies change in visual acuity, redness, or eye pain [] HENT: Denies nasal congestion or sore throat [] Respiratory: Denies cough or shortness of breath [] Cardiovascular: No additional information not addressed in HPI [] GI: Reports abdominal pain, denies nausea, vomiting, bloody stools or diarrhea [] : Denies dysuria or hematuria [] Musculoskeletal: Denies back pain or joint pain [] Integument: Denies rash or skin lesions [] Neurologic: Denies headache, focal weakness or sensory changes [] Endocrine: Denies polyuria or polydipsia [] Complete systems were reviewed and found to be within normal limits, except as documented in this note. Current Medications Current Medications Current Medications Medications (Trade) Dose Ordered Sig/Stacey Start Time Stop Time Status Last Admin Dose Admin Info (CONTRAST GIVEN -- Rx MONITORING) 1 each PRN DAILY PRN 12/25/19 11:30 12/27/19 11:29 Iohexol (Omnipaque 300 Mg/ml) 100 ml STK-MED ONCE 12/25/19 11:19 12/25/19 11:19 DC Allergies Allergies Allergies Coded Allergies Type Severity Reaction Last Updated Verified No Known Drug Allergies 03/14/19 No Physical Exam Physical Exam Constitutional: Well developed, well nourished, no acute distress, non-toxic appearance. [] HENT: Normocephalic, atraumatic, bilateral external ears normal, oropharynx moist, no oral exudates, nose normal. [] Eyes: PERRLA, EOMI, conjunctiva normal, no discharge. [] Neck: Normal range of motion, no tenderness, supple, no stridor. [] Cardiovascular:Heart rate regular rhythm, no murmur [] Lungs & Thorax: Bilateral breath sounds clear to auscultation [] Abdomen: Bowel sounds normal, soft, no tenderness, no masses, no pulsatile masses. [] Skin: Warm, dry, no erythema, no rash. [] Back: No tenderness, no CVA tenderness. [] Extremities: No tenderness, no cyanosis, no clubbing, ROM intact, no edema. [] Neurologic: Alert and oriented X 3, normal motor function, normal sensory f unction, no focal deficits noted. [] Psychologic: Affect normal, judgement normal, mood normal. [] Current Patient Data Vital Signs Vital Signs Date Time Temp Pulse Resp B/P (MAP) Pulse Ox O2 Delivery O2 Flow Rate FiO2 12/25/19 11:30 52 20 208/84 (125) 96 12/25/19 10:03 97.5 Room Air 97.5 Lab Values Laboratory Tests Test 12/25/19 10:05 12/25/19 10:40 Urine Collection Type Unknown Urine Color Yellow Urine Clarity Clear Urine pH 6.5 Urine Specific [place] <=1.005 Urine Protein Negative mg/dL (NEG-TRACE) Urine Glucose (UA) Negative mg/dL (NEG) Urine Ketones (Stick) Negative mg/dL (NEG) Urine Blood Negative (NEG) Urine Nitrite Negative (NEG) Urine Bilirubin Negative (NEG) Urine Urobilinogen Dipstick 0.2 mg/dL (0.2 mg/dL) Urine Leukocyte Esterase Negative (NEG) Urine RBC 0 /HPF (0-2) Urine WBC 0 /HPF (0-4) Urine Squamous Epithelial Cells Few /LPF Urine Bacteria 0 /HPF (0-FEW) White Blood Count 7.3 x10^3/uL (4.0-11.0) Red Blood Count 4.65 x10^6/uL (4.30-5.70) Hemoglobin 14.0 g/dL (13.0-17.5) Hematocrit 41.8 % (39.0-53.0) Mean Corpuscular Volume 90 fL (79-100) Mean Corpuscular Hemoglobin 30 pg (25-35) Mean Corpuscular Hemoglobin Concent 33 g/dL (31-37) Red Cell Distribution Width 12.6 % (11.5-14.5) Platelet Count 143 x10^3/uL (140-400) Neutrophils (%) (Auto) 63 % (31-73) Lymphocytes (%) (Auto) 21 % (24-48) L Monocytes (%) (Auto) 8 % (0-9) Eosinophils (%) (Auto) 7 % (0-3) H Basophils (%) (Auto) 1 % (0-3) Neutrophils # (Auto) 4.7 x10^3/uL (1.8-7.7) Lymphocytes # (Auto) 1.5 x10^3/uL (1.0-4.8) Monocytes # (Auto) 0.6 x10^3/uL (0.0-1.1) Eosinophils # (Auto) 0.5 x10^3/uL (0.0-0.7) Basophils # (Auto) 0.1 x10^3/uL (0.0-0.2) Sodium Level 139 mmol/L (136-145) Potassium Level 4.2 mmol/L (3.5-5.1) Chloride Level 101 mmol/L (98-107) Carbon Dioxide Level 27 mmol/L (21-32) Anion Gap 11 (6-14) Blood Urea Nitrogen 15 mg/dL (8-26) Creatinine 1.3 mg/dL (0.7-1.3) Estimated GFR (Cockcroft-Gault) 66.8 BUN/Creatinine Ratio 12 (6-20) Glucose Level 119 mg/dL (70-99) H Calcium Level 9.1 mg/dL (8.5-10.1) Total Bilirubin 0.5 mg/dL (0.2-1.0) Aspartate Amino Transferase (AST) 19 U/L (15-37) Alanine Aminotransferase (ALT) 35 U/L (16-63) Alkaline Phosphatase 66 U/L (46-116) Troponin I Quantitative < 0.017 ng/mL (0.000-0.055) Total Protein 7.9 g/dL (6.4-8.2) Albumin 4.1 g/dL (3.4-5.0) Albumin/Globulin Ratio 1.1 (1.0-1.7) Lipase 145 U/L (73-393) Laboratory Tests 12/25/19 10:40 Laboratory Tests 12/25/19 10:40 EKG EKG EKG interpreted by Dr. Norma Grullon with rate of 51. Radiology/Procedures Radiology/Procedures [][address] [address] IMAGING REPORT Signed PATIENT: KEYON GREEN ACCOUNT: [id number] : 1955 LOCATION: ER AGE: 64 SEX: M EXAM STATUS: REG ER ORD. PHYSICIAN: KADE HERRERA APRN REASON: chest pain PROCEDURE: CHEST PA & LATERAL Two-view chest dated 12/25/2019. Comparison made to April 16, 2018. Clinical data indication: Chest pain. FINDINGS: PA and lateral views the chest shows stable heart and external contours. Lungs are clear. No consolidation or pleural effusion. No pneumothorax. IMPRESSION: No acute radiographic abnormality. Stable findings compared to April 16, 2018. Electronically signed by: Kade Anthony MD (12/25/2019 10:39 AM) [facility] DICTATED and SIGNED BY: KADE ANTHONY MD DATE: 12/25/[address] [address] IMAGING REPORT Signed PATIENT: KEYON GREEN ACCOUNT: [id number] : 1955 LOCATION: ER AGE: 64 SEX: M EXAM STATUS: REG ER ORD. PHYSICIAN: KADE HERRERA APRN REASON: L sided abdominal pain PROCEDURE: CT ABD PELV W/ IV CONTRST ONLY CT abdomen pelvis with contrast dated 12/25/2019. Comparison made to 05/21/2017. CLINICAL INDICATION: Left-sided abdominal pain. TECHNIQUE: Contiguous axial imaging the M pelvis performed after the administration of 75 cc Omnipaque 300. One or more of the following individualized dose reduction techniques were utilized for this examination: 1. Automated exposure control 2. Adjustment of the mA and/or kV according to patient size 3. Use of iterative reconstruction technique. FINDINGS: Limited images of lung bases are clear. Heart size within normal limits. No pleural or pericardial effusion. There is a small noncalcified pulmonary nodule in the left lower lobe on image 3 that measures 4 mm, unchanged. Liver is of diffuse low density suggesting mild fatty infiltration. No apparent mass. Biliary tree normal in caliber. Gallbladder unremarkable. Spleen is normal in size. Pancreas, adrenal glands and kidneys are unremarkable. No hydronephrosis. Unopacified GI tract normal in caliber and contour. No focal bowel wall thickening. No inflammatory stranding in the mesentery. The appendix is normal in caliber. No ascites or lymphadenopathy. Bowel aorta normal in caliber. Tiny umbilical hernia containing only fat. Images pelvis show nondistended urinary bladder. Prostate gland normal in size. No free fluid or lymphadenopathy. Bone windows show no acute findings. Mild multilevel spondylosis. IMPRESSION: 1. No acute abnormality of abdomen or pelvis. Normal appendix. 2. Mild fatty infiltration the liver. 3. Small noncalcified pulmonary nodule in the left lower lobe, nonspecific but unchanged from prior exam. Electronically signed by: Kade Anthony MD (12/25/2019 11:44 AM) [facility] DICTATED and SIGNED BY: KADE ANTHONY MD DATE: 12/25/19 1144 Course & Med Decision Making Course & Med Decision Making Pertinent Labs and Imaging studies reviewed. (See chart for details) Will get labs, CT, EKG, and UA. Workup is unremarkable for acute changes. Will d/c home to follow up with primary care. Elias Disclaimer Elias Disclaimer This electronic medical record was generated, in whole or in part, using a voice recognition dictation system. Departure Departure Impression: Primary Impression: Abdominal pain Disposition: HOME, SELF-CARE Condition: STABLE Referrals: IGOR BRUNO MD (PCP) Patient Instructions: Abdominal Pain (Nonspecific) Additional Instructions: Thank you for visiting [facility]. We appreciate you trusting us with your care. If any additional problems come up don't hesitate to return to visit us. Please follow up with your primary care provider so they can plan additional care if needed and know about the problem that you had. If symptoms worsen come back to the Emergency Department. Any concerning symptoms that start such as chest pain, shortness of air, weakness or numbness on one side of the body, running high fevers or any other concerning symptoms return to the ER. Problem Qualifiers Primary Impression: Abdominal pain Abdominal location: unspecified location Qualified Codes: R10.9 - Uns pecified abdominal pain KADE HERRERA APRN Dec 25, 2019 10:22
[2019-12-25 10:32] LABS: BILIRUBIN,URINE NEGATIVE (NEG); CLARITY,URINE CLEAR; COLOR,URINE YELLOW; NITRITE,URINE NEGATIVE (NEG); PH,URINE 6.5; PROTEIN,URINE NEGATIVE (NEG-TRACE); UROBILINOGEN,URINE 0.2 mg/dL (0.2 mg/dL)
[2019-12-25 10:41] LABS: BACTERIA,URINE 0 /HPF (0-FEW); RBC,URINE 0 /HPF (0-2); SQUAMOUS EPITHELIAL CELL,UR FEW /LPF; WBC,URINE 0 /HPF (0-4)
--- NOTE | 2019-12-25 10:42 | RAD ---
Two-view chest dated 12/25/2019. Comparison made to April 16, 2018. Clinical data indication: Chest pain. FINDINGS: PA and lateral views the chest shows stable heart and external contours. Lungs are clear. No consolidation or pleural effusion. No pneumothorax. IMPRESSION: No acute radiographic abnormality. Stable findings compared to April 16, 2018. Electronically signed by: Kade Anthony MD (12/25/2019 10:39 AM) [facility]
[2019-12-25 11:12] LABS: CALCIUM 9.1 mg/dL (8.5-10.1); CREATININE 1.3 mg/dL (0.7-1.3); GFR 66.8; POTASSIUM 4.2 mmol/L (3.5-5.1)
[2019-12-25 11:14] LABS: BASO # 0.1 x10^3/uL (0.0-0.2); BASO % 1 % (0-3); EOS # 0.5 x10^3/uL (0.0-0.7); EOS % 7 % (0-3); HEMATOCRIT 41.8 % (39.0-53.0); LYMPH # 1.5 x10^3/uL (1.0-4.8); LYMPH % 21 % (24-48); MEAN CORPUSCULAR HEMOGLOBIN 30 pg (25-35); MEAN CORPUSCULAR HGB CONC 33 g/dL (31-37); MEAN CORPUSCULAR VOLUME 90 fL (79-100); MONO # 0.6 x10^3/uL (0.0-1.1); MONO % 8 % (0-9); NEUT # 4.7 x10^3/uL (1.8-7.7); NEUT % 63 % (31-73); PLATELET COUNT 143 x10^3/uL (140-400); RED BLOOD COUNT 4.65 x10^6/uL (4.30-5.70); RED CELL DISTRIBUTION WIDTH 12.6 % (11.5-14.5); WHITE BLOOD COUNT 7.3 x10^3/uL (4.0-11.0)
[2019-12-25] MEDS ORDERED: IOHEXOL 300 MG/ML 100ML VIAL. IV ONE (11:15)
[2019-12-25 11:17] LABS: ALBUMIN 4.1 g/dL (3.4-5.0); ALBUMIN/GLOBULIN RATIO 1.1 (1.0-1.7); TOTAL BILIRUBIN 0.5 mg/dL (0.2-1.0); TOTAL PROTEIN 7.9 g/dL (6.4-8.2)
[2019-12-25] MEDS ORDERED: IOHEXOL 300 MG/ML 100ML VIAL. ONE (11:19)
[2019-12-25] MEDS ORDERED: CONTRAST GIVEN. MC PRN (11:30)
--- NOTE | 2019-12-25 11:47 | RAD ---
CT abdomen pelvis with contrast dated 12/25/2019. Comparison made to 05/21/2017. CLINICAL INDICATION: Left-sided abdominal pain. TECHNIQUE: Contiguous axial imaging the M pelvis performed after the administration of 75 cc Omnipaque 300. One or more of the following individualized dose reduction techniques were utilized for this examination: 1. Automated exposure control 2. Adjustment of the mA and/or kV according to patient size 3. Use of iterative reconstruction technique. FINDINGS: Limited images of lung bases are clear. Heart size within normal limits. No pleural or pericardial effusion. There is a small noncalcified pulmonary nodule in the left lower lobe on image 3 that measures 4 mm, unchanged. Liver is of diffuse low density suggesting mild fatty infiltration. No apparent mass. Biliary tree normal in caliber. Gallbladder unremarkable. Spleen is normal in size. Pancreas, adrenal glands and kidneys are unremarkable. No hydronephrosis. Unopacified GI tract normal in caliber and contour. No focal bowel wall thickening. No inflammatory stranding in the mesentery. The appendix is normal in caliber. No ascites or lymphadenopathy. Bowel aorta normal in caliber. Tiny umbilical hernia containing only fat. Images pelvis show nondistended urinary bladder. Prostate gland normal in size. No free fluid or lymphadenopathy. Bone windows show no acute findings. Mild multilevel spondylosis. IMPRESSION: 1. No acute abnormality of abdomen or pelvis. Normal appendix. 2. Mild fatty infiltration the liver. 3. Small noncalcified pulmonary nodule in the left lower lobe, nonspecific but unchanged from prior exam. Electronically signed by: Kade Anthony MD (12/25/2019 11:44 AM) [facility]
--- NOTE | 2019-12-25 11:51 | EKG ---
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
[2019-12-25 12:34] VITALS: BP 178/81
== END 2019-12-25 12:36 | disposition home or self-care (01) ==
LOC: ER 10:01
DX: R10.9 Unspecified abdominal pain (principal); R07.89 Other chest pain; K21.9 Gastro-esophageal reflux disease without esophagitis; N40.1 Benign prostatic hyperplasia with lower urinary tract symptoms; R33.8 Other retention of urine; E78.00 Pure hypercholesterolemia, unspecified; I11.0 Hypertensive heart disease with heart failure; I50.9 Heart failure, unspecified; M10.9 Gout, unspecified; I25.10 Atherosclerotic heart disease of native coronary artery without angina pectoris; Z95.5 Presence of coronary angioplasty implant and graft
CPT/HCPCS: 36415; 71046; 74177; 80053; 81001; 83690; 84484; 85025; 93005; 99285-25

== ENCOUNTER 2020-05-20 08:42 | Emergency (ER) | payer MEDICARE ==
[~2020-05-20] VITALS: Ht 172.7 cm; Wt 110.7 kg
--- NOTE | 2020-05-20 09:37 | EKG ---
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
[2020-05-20 09:38] LABS: BASO % 1 % (0-3); EOS # 0.3 x10^3/uL (0.0-0.7); EOS % 4 % (0-3); HEMATOCRIT 39.7 % (39.0-53.0); HEMOGLOBIN 13.1 g/dL (13.0-17.5); LYMPH # 1.2 x10^3/uL (1.0-4.8); LYMPH % 18 % (24-48); MEAN CORPUSCULAR HEMOGLOBIN 30 pg (25-35); MEAN CORPUSCULAR HGB CONC 33 g/dL (31-37); MEAN CORPUSCULAR VOLUME 91 fL (79-100); MONO # 0.5 x10^3/uL (0.0-1.1); MONO % 7 % (0-9); NEUT # 4.6 x10^3/uL (1.8-7.7); NEUT % 70 % (31-73); PLATELET COUNT 133 x10^3/uL (140-400); RED BLOOD COUNT 4.36 x10^6/uL (4.30-5.70); RED CELL DISTRIBUTION WIDTH 13.3 % (11.5-14.5); WHITE BLOOD COUNT 6.6 x10^3/uL (4.0-11.0)
[2020-05-20 10:36] LABS: CALCIUM 8.3 mg/dL (8.5-10.1); CREATININE 1.3 mg/dL (0.7-1.3); GFR 66.8; POTASSIUM 4.3 mmol/L (3.5-5.1)
[2020-05-20] MEDS ORDERED: IOHEXOL 350 MG/ML 100 ML VIAL. IV ONE (10:45)
[2020-05-20] MEDS ORDERED: CONTRAST GIVEN. MC PRN (10:45)
[2020-05-20] MEDS ORDERED: LOSARTAN POTASSIUM 50 MG TABLET. PO SCH (11:11)
[2020-05-20] MEDS ORDERED: METOPROLOL TART IMMED RELEASE 50 MG TABLET. PO ONE (11:15)
--- NOTE | 2020-05-20 11:38 | RAD ---
CT scan of the head without contrast 05/20/2020 Clinical History: Dizziness. Newonset headache. Technique: Unenhanced, contiguous, 5 mm axial sections were obtained through the head. One or more of the following individualized dose reduction techniques were utilized for this study: 1. Automated exposure control. 2. Adjustment of the mA and/or kV according to patient size. 3. Use of iterative reconstruction technique. Findings: There is generalized parenchymal atrophy. Areas of decreased attenuation are seen within the periventricular and subcortical white matter of both cerebral hemispheres consistent with areas of small vessel ischemic disease. No acute parenchymal abnormality is seen. No extra-axial fluid collection is noted. No skull fracture is seen. Mild to moderate mucosal thickening is seen scattered throughout the paranasal sinuses. Impression: No acute intracranial abnormality is seen. Electronically signed by: Anup Escobar MD (05/20/2020 11:35 AM) [id number]
--- NOTE | 2020-05-20 12:00 | RAD ---
CTA of the head and neck with contrast 05/20/2020 Clinical history: Dizziness. New onset headache. Technique: After the intravenous administration of 75 cc of Omnipaque 350, contiguous, 0.625 mm axial sections were obtained through the upper chest, neck and head. Multiplanar 3-D MIP and volume rendered 3-D reconstructed images were obtained. One or more of the following individualized dose reduction techniques were utilized for this study: 1. Automated exposure control. 2. Adjustment of the mA and/or kV according to patient size. 3. Use of iterative reconstruction technique. Findings: Comparison is made to the patient's CT scan of the head performed earlier today. There is a common origin of the brachiocephalic and left common carotid arteries from the thoracic aortic arch. This is a normal variation. This origin is patent. The origin of the left subclavian artery the thoracic aortic arch is patent. Mild scattered atherosclerotic plaque formation is seen. The origin of the right common carotid artery and both vertebral arteries are patent. The common carotid arteries are patent. Mild atheromatous/atherosclerotic plaque formation seen involving both carotid bifurcations and proximal internal carotid arteries. No hemodynamically significant stenosis is seen. The left internal carotid artery is smaller than the right. No area stenosis or occlusion is seen. The right vertebral artery is dominant. Both vertebral arteries demonstrate normal antegrade flow. No area stenosis or occlusion is seen. Intracranially, scattered atherosclerotic plaque formation is seen involving the cavernous portions of both internal carotid arteries. No hemodynamically significant stenosis or area of occlusion is seen. The basilar artery is patent. The A1 segment of the left anterior cerebral artery is aplastic. The P1 segment of the right posterior cerebral artery is aplastic. These are normal variations. Mild atheromatous plaque formation seen involving the proximal anterior, middle and posterior cerebral arteries bilaterally. No area of stenosis or occlusion is seen. No intracranial aneurysm is noted. The major dural venous sinuses are patent. No area of abnormal contrast enhancement is seen. No acute soft tissue abnormality is seen involving the neck. Degenerative changes are seen involving the uncovertebral and facet joints throughout the cervical disc spaces. Impression: 1. Mild atheromatous/atherosclerotic plaque formation is seen involving both carotid bifurcations. No hemodynamically significant stenosis is seen. 2. No intracranial stenosis or area of occlusion is seen. Stenosis calculation for CTA are based on measurement of the distal internal carotid artery diameter in accordance with the NASCET methodology. Electronically signed by: Anup Escobar MD (05/20/2020 11:57 AM) [id number]
--- NOTE | 2020-05-20 12:06 | PHYS DOC ---
Past Medical History Past Medical History: CAD, CHF, GERD, High Cholesterol, Hypertension, Other Additional Past Medical Histor: urinary retention, SLEEP APNEA, GOUT, BPH, Past Surgical History: Other Additional Past Surgical Histo: cardiac cath with stents Smoking Status: Never Smoker Alcohol Use: Occasionally Drug Use: None General Adult EDM: Chief Complaint: HEADACHE HPI: HPI: Patient is a 64 year old male with past medical history of hypertension who presents with headache and dizziness. Patient states that when he rolled over in bed this morning he had onset of a posterior headache with significant dizziness. He states he had a hard time walking after this happened. He is now starting to feel better. He does not typically get headaches. He did not take his blood pressure medicine this morning. He takes 2 different blood pressure m edicine in the morning. He states that the headache at that time felt like a pressure-like pain. It is now resolved. Review of Systems: Review of Systems: General: Denies fever, chills, sweats, fatigue Eyes: Denies drainage, blurred vision, eye redness HENT: Denies rhinorrhea, sore throat, earache Respiratory: Denies cough, shortness of breath, wheezing Cardiac: Denies edema, palpitations, chest pain GI: Denies abdominal pain, Nausea, vomiting MSK: Denies back pain, neck pain Skin: Denies rash, jaundice Neuro: Reports headache, dizziness Psychiatric: Denies SI/HI Heart Score: Risk Factors: Risk Factors: DM, Current or recent (<one month) smoker, HTN, HLP, family history of CAD, obesity. Risk Scores: Score 0 - 3: 2.5% MACE over next 6 weeks - Discharge Home Score 4 - 6: 20.3% MACE over next 6 weeks - Admit for Clinical Observation Score 7 - 10: 72.7% MACE over next 6 weeks - Early Invasive Strategies Current Medications: Current Medications Medications (Trade) Dose Ordered Sig/Stacey Start Time Stop Time Status Last Admin Dose Admin Info (CONTRAST GIVEN -- Rx MONITORING) 1 each PRN DAILY PRN 05/20/20 10:45 05/22/20 10:44 Iohexol (Omnipaque 350 Mg/ml) 75 ml 1X ONCE 05/20/20 10:45 05/20/20 10:46 DC 05/20/20 10:54 75 ML Losartan Potassium (Cozaar) 100 mg DAILY 05/20/20 11:11 Metoprolol Tartrate (Lopressor) 75 mg 1X ONCE 05/20/20 11:15 05/20/20 11:16 DC Allergies: Allergies: Allergies Coded Allergies Type Severity Reaction Last Updated Verified No Known Drug Allergies 05/20/20 No Physical Exam: PE: General: Awake, alert, NAD. Well Nourished, well hydrated. Cooperative HEENT: Atraumatic, EOMI, PERRL, airway patent, moist oral mucosa Neck: Supple, trachea midline Respiratory: CTA bilaterally, normal effort, no wheezing/crackles CV: RRR, no murmur, cap refill <2 GI: Soft, nondistended, nontender, no masses MSK: No obvious deformities Skin: Warm, dry, intact Neuro: A&O x3, speech NL, 5/5 strength in BUE/BLE distally and proximally, CN 2- 12 intact, cerebellar testing normal Psych: Normal affect, normal mood, not suicidal or homicidal Current Patient Data: Labs: Laboratory Tests Test 05/20/20 09:25 White Blood Count 6.6 x10^3/uL (4.0-11.0) Red Blood Count 4.36 x10^6/uL (4.30-5.70) Hemoglobin 13.1 g/dL (13.0-17.5) Hematocrit 39.7 % (39.0-53.0) Mean Corpuscular Volume 91 fL (79-100) Mean Corpuscular Hemoglobin 30 pg (25-35) Mean Corpuscular Hemoglobin Concent 33 g/dL (31-37) Red Cell Distribution Width 13.3 % (11.5-14.5) Platelet Count 133 x10^3/uL (140-400) L Neutrophils (%) (Auto) 70 % (31-73) Lymphocytes (%) (Auto) 18 % (24-48) L Monocytes (%) (Auto) 7 % (0-9) Eosinophils (%) (Auto) 4 % (0-3) H Basophils (%) (Auto) 1 % (0-3) Neutrophils # (Auto) 4.6 x10^3/uL (1.8-7.7) Lymphocytes # (Auto) 1.2 x10^3/uL (1.0-4.8) Monocytes # (Auto) 0.5 x10^3/uL (0.0-1.1) Eosinophils # (Auto) 0.3 x10^3/uL (0.0-0.7) Basophils # (Auto) 0.0 x10^3/uL (0.0-0.2) Sodium Level 138 mmol/L (136-145) Potassium Level 4.3 mmol/L (3.5-5.1) Chloride Level 104 mmol/L (98-107) Carbon Dioxide Level 24 mmol/L (21-32) Anion Gap 10 (6-14) Blood Urea Nitrogen 12 mg/dL (8-26) Creatinine 1.3 mg/dL (0.7-1.3) Estimated GFR (Cockcroft-Gault) 66.8 Glucose Level 117 mg/dL (70-99) H Calcium Level 8.3 mg/dL (8.5-10.1) L Troponin I Quantitative 0.053 ng/mL (0.000-0.055) Laboratory Tests 05/20/20 09:25 Laboratory Tests 05/20/20 09:25 Vital Signs: Vital Signs Date Time Temp Pulse Resp B/P (MAP) Pulse Ox O2 Delivery O2 Flow Rate FiO2 05/20/20 08:47 98.5 60 18 212/95 (134) 98 Room Air 98.5 EKG: EKG: [] Radiology/Procedures: Radiology/Procedures: [] Course & Med Decision Making: Course & Med Decision Making Pertinent Labs and Imaging studies reviewed. (See chart for details) Patient is 64-year-old male presents to the emergency room after having onset of headache and dizziness. CT head and CT Lexi of head and neck were ordered to rule out intracranial bleed, vertebral artery dissection. It is possible this is from high blood pressure or an atypical migraine. He was given his blood pressure medicine here in the emergency room. Work-up was unremarkable. Patient is walking without difficulty. He would like to go home. Patient's test results and vitals while in the ED were fully reviewed and discussed with the patient. Patient is stable and at this time does not need admission to the hospital. We have discussed strict return precautions and the importance of following up with their Primary Care Physician. Patient stated understanding and was given an opportunity to ask any questions. Patient is in agreement with plan. Elias Disclaimer: Elias Disclaimer: This electronic medical record was generated, in whole or in part, using a voice recognition dictation system. Departure Departure Impression: Primary Impression: Dizziness Disposition: 01 HOME, SELF-CARE Condition: GOOD Referrals: IGOR BRUNO MD (PCP) Patient Instructions: Dizziness Justicifation of Admission Dx: Justifications for Admission: Justification of Admission Dx: SUDARSHAN Blackwell MD May 20, 2020 12:06
[2020-05-20 12:23] VITALS: BP 169/72
== END 2020-05-20 13:10 | disposition home or self-care (01) ==
LOC: ER 08:42
DX: R42 Dizziness and giddiness (principal); R51 Headache; E78.00 Pure hypercholesterolemia, unspecified; I11.0 Hypertensive heart disease with heart failure; I50.9 Heart failure, unspecified; K21.9 Gastro-esophageal reflux disease without esophagitis; I25.10 Atherosclerotic heart disease of native coronary artery without angina pectoris; M10.9 Gout, unspecified
CPT/HCPCS: 36415; 70450; 70496; 70498; 80048; 84484; 85025; 93005; 99285; Q9967

== ENCOUNTER 2020-05-25 20:30 | Observation (INO) | payer MEDICARE ==
[~2020-05-25] VITALS: Ht 172.7 cm; Wt 107.0 kg
[2020-05-25 20:57] LABS: BILIRUBIN,URINE NEGATIVE (NEG); CLARITY,URINE CLEAR; COLOR,URINE YELLOW; NITRITE,URINE NEGATIVE (NEG); PH,URINE 5.5 (<5.0-8.0); PROTEIN,URINE 30 mg/dL (NEG-TRACE); UROBILINOGEN,URINE 0.2 mg/dL (0.2 mg/dL)
[2020-05-25 21:04] LABS: BACTERIA,URINE 0 /HPF (0-FEW); HYALINE CASTS, URINE FEW /HPF; RBC,URINE OCC /HPF (0-2); SQUAMOUS EPITHELIAL CELL,UR FEW /LPF; WBC,URINE OCC /HPF (0-4)
[2020-05-25 22:11] LABS: BASO % 0 % (0-3); EOS # 0.3 x10^3/uL (0.0-0.7); EOS % 4 % (0-3); HEMOGLOBIN 13.5 g/dL (13.0-17.5); LYMPH # 1.8 x10^3/uL (1.0-4.8); LYMPH % 22 % (24-48); MEAN CORPUSCULAR HEMOGLOBIN 30 pg (25-35); MEAN CORPUSCULAR HGB CONC 34 g/dL (31-37); MEAN CORPUSCULAR VOLUME 90 fL (79-100); MONO # 0.7 x10^3/uL (0.0-1.1); MONO % 8 % (0-9); NEUT # 5.5 x10^3/uL (1.8-7.7); NEUT % 66 % (31-73); PLATELET COUNT 145 x10^3/uL (140-400); RED BLOOD COUNT 4.43 x10^6/uL (4.30-5.70); WHITE BLOOD COUNT 8.3 x10^3/uL (4.0-11.0)
[2020-05-25 22:22] LABS: CALCIUM 8.7 mg/dL (8.5-10.1); CREATININE 1.3 mg/dL (0.7-1.3); GFR 66.8; POTASSIUM 3.8 mmol/L (3.5-5.1)
--- NOTE | 2020-05-25 22:25 | RAD ---
INDICATION: Reason: dizziness / Spl. Instructions: / History: COMPARISON: December 25, 2019 FINDINGS: Single view of chest obtained. No definite focal airspace consolidation. Cardiac silhouette is mildly prominent in size. Mild fullness of the right pulmonary hilum again seen. IMPRESSION: * No definite focal airspace consolidation. Electronically signed by: Arnoldo Ortiz MD (05/25/2020 10:22 PM) [id number]
[2020-05-25 22:27] LABS: ALBUMIN 3.9 g/dL (3.4-5.0); MAGNESIUM 1.8 mg/dL (1.8-2.4); TOTAL BILIRUBIN 0.4 mg/dL (0.2-1.0); TOTAL PROTEIN 7.9 g/dL (6.4-8.2)
--- NOTE | 2020-05-25 23:07 | PHYS DOC ---
Past Medical History Past Medical History: CAD, CHF, GERD, High Cholesterol, Hypertension, Other Additional Past Medical Histor: urinary retention, SLEEP APNEA, GOUT, BPH, Past Surgical History: Other Additional Past Surgical Histo: cardiac cath with stents Smoking Status: Never Smoker Alcohol Use: Occasionally Drug Use: None General Adult EDM: Chief Complaint: HEADACHE HPI: HPI: Patient is a 64 year old [f__sex] who presents with [] Review of Systems: Review of Systems: Constitutional: Denies fever or chills. [] Eyes: Denies change in visual acuity. [] HENT: Denies nasal congestion or sore throat. [] Respiratory: Denies cough or shortness of breath. [] Cardiovascular: Denies chest pain or edema. [] GI: Denies abdominal pain, nausea, vomiting, bloody stools or diarrhea. [] : Denies dysuria. [] Musculoskeletal: Denies back pain or joint pain. [] Integument: Denies rash. [] Neurologic: positive headache positive dizziness Endocrine: Denies polyuria or polydipsia. [] Lymphatic: Denies swollen glands. [] Psychiatric: Denies depression or anxiety. [] Heart Score: Risk Factors: Risk Factors: DM, Current or recent (<one month) smoker, HTN, HLP, family history of CAD, obesity. Risk Scores: Score 0 - 3: 2.5% MACE over next 6 weeks - Discharge Home Score 4 - 6: 20.3% MACE over next 6 weeks - Admit for Clinical Observation Score 7 - 10: 72.7% MACE over next 6 weeks - Early Invasive Strategies Allergies: Allergies: Allergies Coded Allergies Type Severity Reaction Last Updated Verified No Known Drug Allergies 05/20/20 No Physical Exam: PE: Constitutional: Well developed, well nourished, no acute distress, non-toxic appearance. [] HENT: Normocephalic, atraumatic, bilateral external ears normal, oropharynx moist, no oral exudates, nose normal. [] Eyes: PERRLA, EOMI, conjunctiva normal, no discharge. [] Neck: Normal range of motion, no tenderness, supple, no stridor. [] Cardiovascular:Heart rate regular rhythm, no murmur [] Lungs & Thorax: Bilateral breath sounds clear to auscultation [] Abdomen: Bowel sounds normal, soft, no tenderness, no masses, no pulsatile masses. [] Skin: Warm, dry, no erythema, no rash. [] Back: No tenderness, no CVA tenderness. [] Extremities: No tenderness, no cyanosis, no clubbing, ROM intact, no edema. [] Neurologic: Alert and oriented X 3, normal motor function, normal sensory function, no focal deficits noted. [] Psychologic: Affect normal, judgement normal, mood normal. [] Current Patient Data: Labs: Laboratory Tests Test 05/25/20 20:40 05/25/20 21:20 Urine Collection Type Unknown Urine Color Yellow Urine Clarity Clear Urine pH 5.5 (<5.0-8.0) Urine Specific [place] 1.010 (1.000-1.030) Urine Protein 30 mg/dL (NEG-TRACE) Urine Glucose (UA) Negative mg/dL (NEG) Urine Ketones (Stick) Negative mg/dL (NEG) Urine Blood Negative (NEG) Urine Nitrite Negative (NEG) Urine Bilirubin Negative (NEG) Urine Urobilinogen Dipstick 0.2 mg/dL (0.2 mg/dL) Urine Leukocyte Esterase Negative (NEG) Urine RBC Occ /HPF (0-2) Urine WBC Occ /HPF (0-4) Urine Squamous Epithelial Cells Few /LPF Urine Bacteria 0 /HPF (0-FEW) Urine Hyaline Casts Few /HPF Urine Mucus Mod /LPF White Blood Count 8.3 x10^3/uL (4.0-11.0) Red Blood Count 4.43 x10^6/uL (4.30-5.70) Hemoglobin 13.5 g/dL (13.0-17.5) Hematocrit 40.0 % (39.0-53.0) Mean Corpuscular Volume 90 fL (79-100) Mean Corpuscular Hemoglobin 30 pg (25-35) Mean Corpuscular Hemoglobin Concent 34 g/dL (31-37) Red Cell Distribution Width 13.0 % (11.5-14.5) Platelet Count 145 x10^3/uL (140-400) Neutrophils (%) (Auto) 66 % (31-73) Lymphocytes (%) (Auto) 22 % (24-48) L Monocytes (%) (Auto) 8 % (0-9) Eosinophils (%) (Auto) 4 % (0-3) H Basophils (%) (Auto) 0 % (0-3) Neutrophils # (Auto) 5.5 x10^3/uL (1.8-7.7) Lymphocytes # (Auto) 1.8 x10^3/uL (1.0-4.8) Monocytes # (Auto) 0.7 x10^3/uL (0.0-1.1) Eosinophils # (Auto) 0.3 x10^3/uL (0.0-0.7) Basophils # (Auto) 0.0 x10^3/uL (0.0-0.2) Sodium Level 139 mmol/L (136-145) Potassium Level 3.8 mmol/L (3.5-5.1) Chloride Level 102 mmol/L (98-107) Carbon Dioxide Level 26 mmol/L (21-32) Anion Gap 11 (6-14) Blood Urea Nitrogen 11 mg/dL (8-26) Creatinine 1.3 mg/dL (0.7-1.3) Estimated GFR (Cockcroft-Gault) 66.8 BUN/Creatinine Ratio 8 (6-20) Glucose Level 116 mg/dL (70-99) H Calcium Level 8.7 mg/dL (8.5-10.1) Magnesium Level 1.8 mg/dL (1.8-2.4) Total Bilirubin 0.4 mg/dL (0.2-1.0) Aspartate Amino Transferase (AST) 26 U/L (15-37) Alanine Aminotransferase (ALT) 48 U/L (16-63) Alkaline Phosphatase 58 U/L (46-116) Creatine Kinase 128 U/L (39-308) Creatine Kinase MB (Mass) 0.6 ng/mL (0.0-3.6) Creatine Kinase MB Relative Index 0.5 % (0-4) Troponin I Quantitative 0.054 ng/mL (0.000-0.055) Total Protein 7.9 g/dL (6.4-8.2) Albumin 3.9 g/dL (3.4-5.0) Albumin/Globulin Ratio 1.0 (1.0-1.7) Laboratory Tests 05/25/20 21:20 Laboratory Tests 05/25/20 21:20 Vital Signs: Vital Signs Date Time Temp Pulse Resp B/P (MAP) Pulse Ox O2 Delivery O2 Flow Rate FiO2 05/25/20 21:04 98.7 56 18 168/60 (96) 98 Room Air 98.7 EKG: EKG: time 2159 rate 55 sinus bradycardia[] Radiology/Procedures: Radiology/Procedures: [] Course & Med Decision Making: Course & Med Decision Making Pertinent Labs and Imaging studies reviewed. (See chart for details) [] Dragon Disclaimer: Dragon Disclaimer: This electronic medical record was generated, in whole or in part, using a voice recognition dictation system. Departure Departure Impression: Primary Impression: Dizziness Additional Impression: Headache Disposition: 09 ADMITTED INPATIENT Admitting Physician: DIONI Condition: STABLE Referrals: IGOR BRUNO MD (PCP) Justicifation of Admission Dx: Justifications for Admission: Justification of Admission Dx: SHARRI Harper I DO May 25, 2020 23:07
[2020-05-25] MEDS ORDERED: fentaNYL PF VIAL 100 MCG/2 ML VIAL IVP ONE (23:30)
[2020-05-26 00:14] VITALS: BP 124/76
[2020-05-26 02:44] VITALS: BP 126/78
[2020-05-26 04:41] LABS: BASO % 1 % (0-3); EOS # 0.3 x10^3/uL (0.0-0.7); EOS % 5 % (0-3); HEMATOCRIT 38.8 % (39.0-53.0); HEMOGLOBIN 12.9 g/dL (13.0-17.5); LYMPH # 1.6 x10^3/uL (1.0-4.8); LYMPH % 25 % (24-48); MEAN CORPUSCULAR HEMOGLOBIN 30 pg (25-35); MEAN CORPUSCULAR HGB CONC 33 g/dL (31-37); MEAN CORPUSCULAR VOLUME 90 fL (79-100); MONO # 0.7 x10^3/uL (0.0-1.1); MONO % 10 % (0-9); NEUT # 3.8 x10^3/uL (1.8-7.7); NEUT % 59 % (31-73); PLATELET COUNT 131 x10^3/uL (140-400); RED CELL DISTRIBUTION WIDTH 13.1 % (11.5-14.5); WHITE BLOOD COUNT 6.5 x10^3/uL (4.0-11.0)
[2020-05-26 04:57] LABS: CALCIUM 8.8 mg/dL (8.5-10.1); CREATININE 1.2 mg/dL (0.7-1.3); GFR 73.3; POTASSIUM 3.6 mmol/L (3.5-5.1)
--- NOTE | 2020-05-26 05:03 | EKG ---
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
[2020-05-26 07:10] VITALS: BP 152/73
[2020-05-26] MEDS ORDERED: LOSARTAN POTASSIUM 50 MG TABLET. PO SCH (09:00)
[2020-05-26] MEDS ORDERED: FINASTERIDE 5 MG TABLET. PO SCH (09:00)
[2020-05-26] MEDS ORDERED: ASPIRIN CHEWABLE 81 MG TABLET. PO SCH (09:00)
[2020-05-26] MEDS ORDERED: FUROSEMIDE 40 MG TABLET. PO SCH (09:00)
--- NOTE | 2020-05-26 09:17 | PDOC1 ---
History and Physical Date of Admission: Date of Admission DATE: 05/26/20 TIME: 09:11 Chief Complaint: Chief Complain: Headache and dizziness History of Present Illness: HPI: Patient is a 64-year-old male with past medical history of borderline CHF, CAD, dyslipidemia, hypertension, ROSITA who comes to the complaints of headaches that is 10 out of 10 and bilateral in the temporals. He did take aspirin at 4 PM on admission and states that it did help briefly and then returned. Patient did have associated dizziness. Denies syncope or falls or chest pain or palpitations. Denies phono photophobia or vision changes. Past Medical/Surgical History: PMH/PSH: Past Medical History: CAD with stents, CHF, GERD, High Cholesterol, Hypertension, SLEEP APNEA, GOUT, BPH, Allergies: Allergies: Coded Allergies: No Known Drug Allergies (Unverified , 05/20/20) Family History: Family History: None Social History: Social History: Smoking Status: Never Smoker Alcohol Use: Occasionally Drug Use: None Current Medications: Current Medications Current Medications Fentanyl Citrate (Fentanyl 2ml Vial) 25 mcg 1X ONCE IVP Last administered on 05/25/20at 23:35; Start 05/25/20 at 23:30; Stop 05/25/20 at 23:31; Status DC Active Scripts Active Effient (Prasugrel Hcl) 10 Mg Tablet 1 Tab PO DAILY Reported Metoprolol Tartrate 50 Mg Tablet 1.5 Tab PO BID Losartan Potassium 50 Mg Tablet 100 Mg PO DAILY Atorvastatin Calcium 80 Mg Tablet 80 Mg PO HS Dexilant (Dexlansoprazole) 60 Mg Cap. 1 Cap PO DAILY Finasteride 5 Mg Tablet 1 Tab PO DAILY Lasix (Furosemide) 40 Mg Tablet 1 Tab PO DAILY Potassium Chloride (Potassium Chloride) 20 Meq Tablet.er 20 Meq PO DAILY Aspirin 81 Mg Tab.chew 1 Tab PO DAILY Tamsulosin Hcl 0.4 Mg Cap.er.24h 1 Cap PO DAILY ROS: Review of Systems Review of System REVIEW OF SYSTEMS: GENERAL: Denies weakness SKIN: No bruising, hair changes or rashes. EYES: No blurred, double or loss of vision. NOSE AND THROAT: No history of nosebleeds, hoarseness or sore throat. HEART: No history of palpitations, chest pain or shortness of breath on exertion. LUNGS: Denies cough, hemoptysis, wheezing or shortness of breath. GASTROINTESTINAL: Denies changes in appetite, nausea, vomiting, diarrhea or constipation. GENITOURINARY: No history of frequency, urgency, hesitancy or nocturia. NEUROLOGIC: Denies history of numbness, tingling, or tremor. PSYCHIATRIC: No history of panic, anxiety or depression. ENDOCRINE: No history of heat or cold intolerance, polyuria or polydipsia. EXTREMITIES: Denies joint pain, pain on walking or stiffness. Physical Exam: Vital Signs: Vital Signs Date Time Temp Pulse Resp B/P (MAP) Pulse Ox O2 Delivery O2 Flow Rate FiO2 05/26/20 07:10 98.1 59 16 152/73 (99) 98 Room Air 98.1 05/26/20 02:44 2.0 Physcial Exam: GEN: No apparent distress. Alert and oriented HEENT: Normal cephalic, atraumatic, external auditory canals are patent EYES: Extraocular muscles are intact, pupil are equally round and reactive to light and accommodation MUSCULOSKELETAL: Well developed , well nourished, good range of motion ENDOCRINE: No thyromegaly was palpated LYMPHATICS: No cervical chain or axillary nodes were noted HEMATOPOIETIC: No bruising NECK: Supple, no JVD, no thyromegaly was noted LUNGS: Clear to auscultation in all lung roach without rhonchi or wheezing HEART: RRR, S!, S2 present. Peripheral pulses intact, no obvious murmurs noted ABDOMEN: Soft, nontender. Positive bowel sounds, no organomegaly, normal bowel sounds EXTREMITIES: Without clubbing, cyanosis, or edema. Pedal pulses intact. Negative Homans sign NEUROLOGIC: Normal speech and tone. A&O x 3, moves all extremities, no obvious focal deficits PSYCHIATRIC: Normal affect, normal mood. Stable SKIN: No ulcerations or rashes, good skin turgor, no jaundice VASCULAR: Good capillary refill, neurovascular bundle appears to be intact Labs: Labs: Laboratory Tests Test 05/25/20 20:40 05/25/20 21:20 05/26/20 01:15 05/26/20 04:30 Urine Collection Type Unknown Urine Color Yellow Urine Clarity Clear Urine pH 5.5 (<5.0-8.0) Urine Specific [place] 1.010 (1.000-1.030) Urine Protein 30 mg/dL (NEG-TRACE) Urine Glucose (UA) Negative mg/dL (NEG) Urine Ketones (Stick) Negative mg/dL (NEG) Urine Blood Negative (NEG) Urine Nitrite Negative (NEG) Urine Bilirubin Negative (NEG) Urine Urobilinogen Dipstick 0.2 mg/dL (0.2 mg/dL) Urine Leukocyte Esterase Negative (NEG) Urine RBC Occ /HPF (0-2) Urine WBC Occ /HPF (0-4) Urine Squamous Epithelial Cells Few /LPF Urine Bacteria 0 /HPF (0-FEW) Urine Hyaline Casts Few /HPF Urine Mucus Mod /LPF White Blood Count 8.3 x10^3/uL (4.0-11.0) 6.5 x10^3/uL (4.0-11.0) Red Blood Count 4.43 x10^6/uL (4.30-5.70) 4.30 x10^6/uL (4.30-5.70) Hemoglobin 13.5 g/dL (13.0-17.5) 12.9 g/dL (13.0-17.5) Hematocrit 40.0 % (39.0-53.0) 38.8 % (39.0-53.0) Mean Corpuscular Volume 90 fL (79-100) 90 fL (79-100) Mean Corpuscular Hemoglobin 30 pg (25-35) 30 pg (25-35) Mean Corpuscular Hemoglobin Concent 34 g/dL (31-37) 33 g/dL (31-37) Red Cell Distribution Width 13.0 % (11.5-14.5) 13.1 % (11.5-14.5) Platelet Count 145 x10^3/uL (140-400) 131 x10^3/uL (140-400) Neutrophils (%) (Auto) 66 % (31-73) 59 % (31-73) Lymphocytes (%) (Auto) 22 % (24-48) 25 % (24-48) Monocytes (%) (Auto) 8 % (0-9) 10 % (0-9) Eosinophils (%) (Auto) 4 % (0-3) 5 % (0-3) Basophils (%) (Auto) 0 % (0-3) 1 % (0-3) Neutrophils # (Auto) 5.5 x10^3/uL (1.8-7.7) 3.8 x10^3/uL (1.8-7.7) Lymphocytes # (Auto) 1.8 x10^3/uL (1.0-4.8) 1.6 x10^3/uL (1.0-4.8) Monocytes # (Auto) 0.7 x10^3/uL (0.0-1.1) 0.7 x10^3/uL (0.0-1.1) Eosinophils # (Auto) 0.3 x10^3/uL (0.0-0.7) 0.3 x10^3/uL (0.0-0.7) Basophils # (Auto) 0.0 x10^3/uL (0.0-0.2) 0.0 x10^3/uL (0.0-0.2) Sodium Level 139 mmol/L (136-145) 139 mmol/L (136-145) Potassium Level 3.8 mmol/L (3.5-5.1) 3.6 mmol/L (3.5-5.1) Chloride Level 102 mmol/L (98-107) 104 mmol/L (98-107) Carbon Dioxide Level 26 mmol/L (21-32) 24 mmol/L (21-32) Anion Gap 11 (6-14) 11 (6-14) Blood Urea Nitrogen 11 mg/dL (8-26) 9 mg/dL (8-26) Creatinine 1.3 mg/dL (0.7-1.3) 1.2 mg/dL (0.7-1.3) Estimated GFR (Cockcroft-Gault) 66.8 73.3 BUN/Creatinine Ratio 8 (6-20) Glucose Level 116 mg/dL (70-99) 100 mg/dL (70-99) Calcium Level 8.7 mg/dL (8.5-10.1) 8.8 mg/dL (8.5-10.1) Magnesium Level 1.8 mg/dL (1.8-2.4) Total Bilirubin 0.4 mg/dL (0.2-1.0) Aspartate Amino Transf (AST/SGOT) 26 U/L (15-37) Alanine Aminotransferase (ALT/SGPT) 48 U/L (16-63) Alkaline Phosphatase 58 U/L (46-116) Creatine Kinase 128 U/L (39-308) Creatine Kinase MB (Mass) 0.6 ng/mL (0.0-3.6) Creatine Kinase MB Relative Index 0.5 % (0-4) Troponin I Quantitative 0.054 ng/mL (0.000-0.055) 0.057 ng/mL (0.000-0.055) 0.053 ng/mL (0.000-0.055) Total Protein 7.9 g/dL (6.4-8.2) Albumin 3.9 g/dL (3.4-5.0) Albumin/Globulin Ratio 1.0 (1.0-1.7) Laboratory Tests Test 05/25/20 20:40 05/25/20 21:20 05/26/20 01:15 05/26/20 04:30 Urine Collection Type Unknown Urine Color Yellow Urine Clarity Clear Urine pH 5.5 (<5.0-8.0) Urine Specific [place] 1.010 (1.000-1.030) Urine Protein 30 mg/dL (NEG-TRACE) Urine Glucose (UA) Negative mg/dL (NEG) Urine Ketones (Stick) Negative mg/dL (NEG) Urine Blood Negative (NEG) Urine Nitrite Negative (NEG) Urine Bilirubin Negative (NEG) Urine Urobilinogen Dipstick 0.2 mg/dL (0.2 mg/dL) Urine Leukocyte Esterase Negative (NEG) Urine RBC Occ /HPF (0-2) Urine WBC Occ /HPF (0-4) Urine Squamous Epithelial Cells Few /LPF Urine Bacteria 0 /HPF (0-FEW) Urine Hyaline Casts Few /HPF Urine Mucus Mod /LPF White Blood Count 8.3 x10^3/uL (4.0-11.0) 6.5 x10^3/uL (4.0-11.0) Red Blood Count 4.43 x10^6/uL (4.30-5.70) 4.30 x10^6/uL (4.30-5.70) Hemoglobin 13.5 g/dL (13.0-17.5) 12.9 g/dL (13.0-17.5) Hematocrit 40.0 % (39.0-53.0) 38.8 % (39.0-53.0) Mean Corpuscular Volume 90 fL (79-100) 90 fL (79-100) Mean Corpuscular Hemoglobin 30 pg (25-35) 30 pg (25-35) Mean Corpuscular Hemoglobin Concent 34 g/dL (31-37) 33 g/dL (31-37) Red Cell Distribution Width 13.0 % (11.5-14.5) 13.1 % (11.5-14.5) Platelet Count 145 x10^3/uL (140-400) 131 x10^3/uL (140-400) Neutrophils (%) (Auto) 66 % (31-73) 59 % (31-73) Lymphocytes (%) (Auto) 22 % (24-48) 25 % (24-48) Monocytes (%) (Auto) 8 % (0-9) 10 % (0-9) Eosinophils (%) (Auto) 4 % (0-3) 5 % (0-3) Basophils (%) (Auto) 0 % (0-3) 1 % (0-3) Neutrophils # (Auto) 5.5 x10^3/uL (1.8-7.7) 3.8 x10^3/uL (1.8-7.7) Lymphocytes # (Auto) 1.8 x10^3/uL (1.0-4.8) 1.6 x10^3/uL (1.0-4.8) Monocytes # (Auto) 0.7 x10^3/uL (0.0-1.1) 0.7 x10^3/uL (0.0-1.1) Eosinophils # (Auto) 0.3 x10^3/uL (0.0-0.7) 0.3 x10^3/uL (0.0-0.7) Basophils # (Auto) 0.0 x10^3/uL (0.0-0.2) 0.0 x10^3/uL (0.0-0.2) Sodium Level 139 mmol/L (136-145) 139 mmol/L (136-145) Potassium Level 3.8 mmol/L (3.5-5.1) 3.6 mmol/L (3.5-5.1) Chloride Level 102 mmol/L (98-107) 104 mmol/L (98-107) Carbon Dioxide Level 26 mmol/L (21-32) 24 mmol/L (21-32) Anion Gap 11 (6-14) 11 (6-14) Blood Urea Nitrogen 11 mg/dL (8-26) 9 mg/dL (8-26) Creatinine 1.3 mg/dL (0.7-1.3) 1.2 mg/dL (0.7-1.3) Estimated GFR (Cockcroft-Gault) 66.8 73.3 BUN/Creatinine Ratio 8 (6-20) Glucose Level 116 mg/dL (70-99) 100 mg/dL (70-99) Calcium Level 8.7 mg/dL (8.5-10.1) 8.8 mg/dL (8.5-10.1) Magnesium Level 1.8 mg/dL (1.8-2.4) Total Bilirubin 0.4 mg/dL (0.2-1.0) Aspartate Amino Transf (AST/SGOT) 26 U/L (15-37) Alanine Aminotransferase (ALT/SGPT) 48 U/L (16-63) Alkaline Phosphatase 58 U/L (46-116) Creatine Kinase 128 U/L (39-308) Creatine Kinase MB (Mass) 0.6 ng/mL (0.0-3.6) Creatine Kinase MB Relative Index 0.5 % (0-4) Troponin I Quantitative 0.054 ng/mL (0.000-0.055) 0.057 ng/mL (0.000-0.055) 0.053 ng/mL (0.000-0.055) Total Protein 7.9 g/dL (6.4-8.2) Albumin 3.9 g/dL (3.4-5.0) Albumin/Globulin Ratio 1.0 (1.0-1.7) Assessment/Plan Assessment/Plan Acute tension headache Normocytic anemia Thrombocytopenia CAD CHF Patient admitted for observation. Patient seen and examined this morning with headaches. Patient was given a 500 NS bolus and Tylenol and his symptoms improved. Patient was ready for discharge and he was instructed to follow-up with his primary care doctor for further evaluation regarding his lightheadedness. Justicifation of Admission Dx: Justifications for Admission: Justification of Admission Dx: MIGUEL Maria MD May 26, 2020 09:17
[2020-05-26] MEDS ORDERED: METOPROLOL TART IMMED RELEASE 50 MG TABLET. PO SCH (09:30)
[2020-05-26] MEDS ORDERED: TAMSULOSIN 0.4 MG CAP.ER.24H. PO SCH (09:30)
[2020-05-26] MEDS ORDERED: PRASUGREL 10 MG TABLET. PO SCH (09:30)
[2020-05-26] MEDS ORDERED: POTASSIUM CHLORIDE 20 MEQ TABLET.ER. PO SCH (09:30)
[2020-05-26 11:19] VITALS: BP 148/71
--- NOTE | 2020-05-26 12:25 | NUR ---
ASIM following. Reviewed chart and spoke with RN and CM. Pt from home. Pt on oral medications and 2l 02. Coordinated care with Dr. Wilkins, pt is observation status. SW to followl Addendum: 05/26/20 at 1617 by NATHANAEL DAILEY pt to discharge today, no SW needs per RN and chart review.
[2020-05-26] MEDS ORDERED: IV NORMAL SALINE 500ML BAG 500 ML IV ONE (12:45)
[2020-05-26 15:09] VITALS: BP 136/71
[2020-05-26] MEDS ORDERED: ACETAMINOPHEN 325 MG TABLET. PO PRN (15:30)
--- NOTE | 2020-05-26 15:32 | DISCH ---
DISCHARGE INSTRUCTIONS Condition on Discharge Condition on Discharge: Stable Activity After Discharge Activity Instructions for Disc: Activity as tolerated Lifting Instructions after Dis: No heavy lifting, No pulling or pushing, Do not lift >10 pounds Exercise Instruction after Dis: Progress as tolerated Weight Bearing Status after Di: As tolerated Diet after Discharge Diet after Discharge: Cardiac Wound Incision Care Wound/Incision Care: May get incision wet Checks after Discharge Checks after discharge: Check blood press - daily Follow-Up Follow up with: Primary care doctor within 1 week of discharge Treatment/Equipment after DC Adaptive Equipment Issued: None MIGUEL SANTO MD May 26, 2020 15:32
[2020-05-26] MEDS ORDERED: ACET325T9 PO (15:34)
--- NOTE | 2020-05-26 16:11 | NUR ---
NS 500cc given per verbal order of Dr. Wilkins, fluid infused, pt tolerated IVF.
--- NOTE | 2020-05-26 17:53 | NUR ---
Discharge Note: KEYON GREEN [address] Discharge instructions and discharge home medications reviewed with patient and a copy given. All questions have been answered and understanding verbalized. The following instructions and handouts were given: Acetaminiophen 650 mg Q6 hr prn for headache Watch out for severe headache, nausea, vomiting, blurred vision, new onset weakness. Discontinued lines and drains: peripheral IV intact, patient tolerated removal, no complications noted. Patient discharged to home with self-care via wheelchair at 1715.
== END 2020-05-26 17:15 | disposition home or self-care (01) ==
LOC: ER 20:30 → 6 SOUTH 22:44
PROVIDERS: ADMIT Internal Medicine; ATTEND Internal Medicine
DX: G44.209 Tension-type headache, unspecified, not intractable (principal); R42 Dizziness and giddiness; I11.0 Hypertensive heart disease with heart failure; I50.9 Heart failure, unspecified; E78.5 Hyperlipidemia, unspecified; E78.00 Pure hypercholesterolemia, unspecified; D69.6 Thrombocytopenia, unspecified; D64.9 Anemia, unspecified; I25.10 Atherosclerotic heart disease of native coronary artery without angina pectoris; N40.1 Benign prostatic hyperplasia with lower urinary tract symptoms; K21.9 Gastro-esophageal reflux disease without esophagitis; Z95.5 Presence of coronary angioplasty implant and graft
CPT/HCPCS: 36415; 71045; 80048; 80053; 81001; 82553; 83735; 83880; 84484; 85025; 93005; 96374; 99284; G0378; J3010; J7040; G0379

== ENCOUNTER 2020-08-10 11:34 | Observation (INO) | payer MEDICARE ==
[~2020-08-10] VITALS: Ht 172.7 cm; Wt 109.0 kg
[~2020-08-10 11:34] MED LIST changes: +ACET325T9 PO
[2020-08-10 12:29] LABS: BASO # 0.1 x10^3/uL (0.0-0.2); BASO % 1 % (0-3); EOS # 0.5 x10^3/uL (0.0-0.7); EOS % 6 % (0-3); HEMATOCRIT 41.9 % (39.0-53.0); LYMPH # 1.6 x10^3/uL (1.0-4.8); LYMPH % 22 % (24-48); MEAN CORPUSCULAR HEMOGLOBIN 30 pg (25-35); MEAN CORPUSCULAR HGB CONC 34 g/dL (31-37); MEAN CORPUSCULAR VOLUME 90 fL (79-100); MONO # 0.4 x10^3/uL (0.0-1.1); MONO % 6 % (0-9); NEUT # 4.8 x10^3/uL (1.8-7.7); NEUT % 65 % (31-73); PLATELET COUNT 153 x10^3/uL (140-400); RED BLOOD COUNT 4.67 x10^6/uL (4.30-5.70); RED CELL DISTRIBUTION WIDTH 12.8 % (11.5-14.5); WHITE BLOOD COUNT 7.3 x10^3/uL (4.0-11.0)
--- NOTE | 2020-08-10 12:34 | RAD ---
CHEST PA LATERAL History: Reason: chest pain / Comparison: AP chest May 25, 2020. Findings: The cardiomediastinal silhouette is normal. Pulmonary vasculature is normal. The lungs are clear. No pleural effusion or pneumothorax is seen. There is no acute bone abnormality. IMPRESSION: No acute cardiopulmonary process. Electronically signed by: Flo Mendoza MD (08/10/2020 12:31 PM) [id number]
[2020-08-10 12:38] LABS: CALCIUM 8.9 mg/dL (8.5-10.1); CREATININE 1.1 mg/dL (0.7-1.3); GFR 80.8; POTASSIUM 4.1 mmol/L (3.5-5.1)
[2020-08-10] MEDS ORDERED: IOHEXOL 350 MG/ML 100 ML VIAL. IV ONE (14:30)
[2020-08-10] MEDS ORDERED: CONTRAST GIVEN. MC PRN (14:30)
--- NOTE | 2020-08-10 15:19 | RAD ---
EXAM: CT Pulmonary Angiogram INDICATION: Reason: chest pain, sob, elevated ddimer / Spl. Instructions: IV OMNI 350 100 MLS / History: TECHNIQUE: Multi-detector row images were acquired from the thoracic inlet through the upper abdomen with the use of IV contrast. Sagittal and coronal images were acquired from the transaxial data. MIP images of the pulmonary arteries were obtained. All CT scans performed at this facility utilize dose optimization techniques as appropriate to the exam, including the following: Automated exposure control and adjustment of the mA and/or KV according to patient size (this includes techniques or standardized protocols for targeted exams where dose is indication/reason for exam). IV CONTRAST: Administered COMPARISON: 2 view chest x-ray from earlier the same day FINDINGS: PULMONARY ARTERIES: No pulmonary emboli are identified. CARDIOVASCULAR: Normal heart size. No pericardial effusion. There are multivessel coronary calcifications Aorta is normal caliber. MEDIASTINUM & GRACIA: No adenopathy or masses. LUNGS: No pulmonary infiltrate, nodule, or other focal abnormality. PLEURAL SPACE: No pleural effusions or pneumothorax. OSSEOUS & SOFT TISSUE: Unremarkable ABDOMEN: The visualized portions of the upper abdomen are unremarkable. IMPRESSION: Coronary artery disease. Otherwise unremarkable CT pulmonary angiogram. No evidence of pulmonary emboli. Electronically signed by: Marietta Silva MD (08/10/2020 3:15 PM) [id number]
--- NOTE | 2020-08-10 16:27 | EKG ---
[facility] [address] [place] [address] Test Date: 2020-08-10 Test Time: 12:02:34 Pat Name: KEYON GREEN Department: Room: Gender: M [employer]: : 1955 Requested By: SUDARSHAN CRAIG Order Number: [id number] Reading MD: Kole Rascon Measurements Intervals [place] Rate: 53 P: 37 [place]: 164 QRS: 3 QRSD: 74 T: 20 QT: 436 QTc: 411 Interpretive Statements SINUS RHYTHM ATRIAL PREMATURE COMPLEX(ES) Electronically Signed On 08-11-2020 12:22:21 CDT by Kole Rascon
--- NOTE | 2020-08-10 17:27 | PHYS DOC ---
Past Medical History Past Medical History: CAD, CHF, GERD, High Cholesterol, Hypertension, Other Additional Past Medical Histor: urinary retention, SLEEP APNEA, GOUT, BPH, Past Surgical History: Other Additional Past Surgical Histo: cardiac cath with stents Smoking Status: Current Some Day Smoker Alcohol Use: Occasionally Drug Use: None General Adult EDM: Chief Complaint: CHEST PAIN HPI: HPI: Patient is a 65-year-old male who presents the emergency room complaining of intermittent left-sided chest pain for the last couple weeks. He states that they come on for short period of time and are sharp in nature. He states that they radiate under his ribs. He denies any associated shortness of breath, nausea, vomiting, sweating, dizziness. He has been having some headaches. He denies any URI symptoms. He has not had anything like this previously. He does have a history of stents. He saw his primary care doctor today who sent him here for evaluation and admission for chest pain. Review of Systems: Review of Systems: General: Denies fever, chills, sweats, fatigue Eyes: Denies drainage, blurred vision, eye redness HENT: Denies rhinorrhea, sore throat, earache Respiratory: Denies cough, shortness of breath, wheezing Cardiac: Denies edema, palpitations. Reports chest pain GI: Denies abdominal pain, Nausea, vomiting MSK: Denies back pain, neck pain Skin: Denies rash, jaundice Neuro: Denies headache, dizziness Psychiatric: Denies SI/HI Heart Score: Risk Factors: Risk Factors: DM, Current or recent (<one month) smoker, HTN, HLP, family history of CAD, obesity. Risk Scores: Score 0 - 3: 2.5% MACE over next 6 weeks - Discharge Home Score 4 - 6: 20.3% MACE over next 6 weeks - Admit for Clinical Observation Score 7 - 10: 72.7% MACE over next 6 weeks - Early Invasive Strategies Current Medications: Current Medications Medications (Trade) Dose Ordered Sig/Stacey Start Time Stop Time Status Last Admin Dose Admin Info (CONTRAST GIVEN -- Rx MONITORING) 1 each PRN DAILY PRN 08/10/20 14:30 08/12/20 14:29 Iohexol (Omnipaque 350 Mg/ml) 100 ml 1X ONCE 08/10/20 14:30 08/10/20 14:31 DC 08/10/20 14:30 100 ML Allergies: Allergies: Allergies Coded Allergies Type Severity Reaction Last Updated Verified No Known Drug Allergies 05/20/20 No Physical Exam: PE: General: Awake, alert, NAD. Well Nourished, well hydrated. Cooperative HEENT: Atraumatic, EOMI, PERRL, airway patent, moist oral mucosa Neck: Supple, trachea midline Respiratory: CTA bilaterally, normal effort, no wheezing/crackles CV: RRR, no murmur, cap refill <2 GI: Soft, nondistended, nontender, no masses MSK: No obvious deformities Skin: Warm, dry, intact Neuro: A&O x3, speech NL, sensory and motor grossly intact, no focal deficits Psych: Normal affect, normal mood, not suicidal or homicidal Current Patient Data: Labs: Laboratory Tests Test 08/10/20 12:20 White Blood Count 7.3 x10^3/uL (4.0-11.0) Red Blood Count 4.67 x10^6/uL (4.30-5.70) Hemoglobin 14.0 g/dL (13.0-17.5) Hematocrit 41.9 % (39.0-53.0) Mean Corpuscular Volume 90 fL (79-100) Mean Corpuscular Hemoglobin 30 pg (25-35) Mean Corpuscular Hemoglobin Concent 34 g/dL (31-37) Red Cell Distribution Width 12.8 % (11.5-14.5) Platelet Count 153 x10^3/uL (140-400) Neutrophils (%) (Auto) 65 % (31-73) Lymphocytes (%) (Auto) 22 % (24-48) L Monocytes (%) (Auto) 6 % (0-9) Eosinophils (%) (Auto) 6 % (0-3) H Basophils (%) (Auto) 1 % (0-3) Neutrophils # (Auto) 4.8 x10^3/uL (1.8-7.7) Lymphocytes # (Auto) 1.6 x10^3/uL (1.0-4.8) Monocytes # (Auto) 0.4 x10^3/uL (0.0-1.1) Eosinophils # (Auto) 0.5 x10^3/uL (0.0-0.7) Basophils # (Auto) 0.1 x10^3/uL (0.0-0.2) D-Dimer (Liberty) 0.83 ug/mlFEU (0.00-0.50) H Sodium Level 137 mmol/L (136-145) Potassium Level 4.1 mmol/L (3.5-5.1) Chloride Level 104 mmol/L (98-107) Carbon Dioxide Level 27 mmol/L (21-32) Anion Gap 6 (6-14) Blood Urea Nitrogen 13 mg/dL (8-26) Creatinine 1.1 mg/dL (0.7-1.3) Estimated GFR (Cockcroft-Gault) 80.8 Glucose Level 121 mg/dL (70-99) H Calcium Level 8.9 mg/dL (8.5-10.1) Troponin I Quantitative 0.025 ng/mL (0.000-0.055) Laboratory Tests 08/10/20 12:20 Laboratory Tests 08/10/20 12:20 Vital Signs: Vital Signs Date Time Temp Pulse Resp B/P (MAP) Pulse Ox O2 Delivery O2 Flow Rate FiO2 08/10/20 16:00 56 144/117 (126) 99 Room Air 08/10/20 11:36 98.3 16 98.3 EKG: EKG: [] Radiology/Procedures: Radiology/Procedures: [] Course & Med Decision Making: Course & Med Decision Making Pertinent Labs and Imaging studies reviewed. (See chart for details) Patient is a 65 year-old male who presents to the Emergency Room complaining of chest pain. History is significant for stents. At this time, given patient's risk factors and story there is concern for possible cardiac pathology. EKG was ordered and shows chronic changes with no ST elevations. At this time there is no signs of STEMI, pericarditis, or unstable arrthymia on EKG. Patient has received aspirin today. CBC, BMP, troponin, CXR were ordered to evaluate for causes of chest pain including ACS, anemia, electrolyte abnormalities that can lead to arrhythmias, PTX, pneumonia, pneumomediastinum. Patient does not have any abdominal tenderness that would suggest pancreaititis or cholecystitis and does not need an abdominal work up at this time. Patient's HEART score is 5 placing the patient at moderate risk. Dragon Disclaimer: Dragon Disclaimer: This electronic medical record was generated, in whole or in part, using a voice recognition dictation system. Departure Departure Impression: Primary Impression: Chest pain Disposition: 09 ADMITTED INPATIENT Condition: STABLE Referrals: IGOR BRUNO MD (PCP) Justicifation of Admission Dx: Justifications for Admission: Justification of Admission Dx: SUDARSHAN Blackwell MD Aug 10, 2020 17:27
[2020-08-10] MEDS ORDERED: NITROGLYCERIN SUBLINGUAL 0.4 MG BOTTLE OF 25. SL PRN (18:00)
[2020-08-10] MEDS ORDERED: ASPIRIN CHEWABLE 81 MG TABLET. PO ONE (18:00)
--- NOTE | 2020-08-10 18:02 | PDOC1 ---
History and Physical Date of Admission Date of Admission DATE: 08/10/20 TIME: 17:52 Identification/Chief Complaint Chief Complaint Chest pain Source Source: Patient History of Present Illness History of Present Illness Patient 65-year-old male with past medical history of coronary artery disease with stents, who presents with intermittent left-sided chest pain for the past 3 to 4 weeks. He reports sharp chest pain, 7/10. Patient denies any aggravating or alleviating symptoms to his chest pain. He initially attributed his symptoms to gas, but saw his PCP after his symptoms did not improve spontaneously. His PCP thought his symptoms were musculoskeletal in nature, and evaluated patient with a normal EKG. Patient denies any associated shortness of breath, nausea, or vomiting. Troponin 0 0.02 5, d-dimer 0.83 Chest x-ray showing no acute process CTA chest negative for PE Past Medical History Cardiovascular: CAD, CHF, HTN, Mitral valve stenosis, Valve insufficiency, Pulmonary hypertension Pulmonary: Other CENTRAL NERVOUS SYSTEM: Other GI: GERD, Other Heme/Onc: No pertinent hx Hepatobiliary: No pertinent hx Psych: No pertinent hx Musculoskeletal: Osteoarthritis Infectious disease: No pertinent hx Renal/: Benign prostatic enlarg. Endocrine: Diabetes Past Surgical History Past Surgical History Stents x 2 Past Surgical History: Other Family History Family History CAD Social History Smoke: No ALCOHOL: social Drugs: None Current Medications Current Medications Current Medications Iohexol (Omnipaque 350 Mg/ml) 100 ml 1X ONCE IV Last administered on 08/10/20at 14:30; Start 08/10/20 at 14:30; Stop 08/10/20 at 14:31; Status DC Info (CONTRAST GIVEN -- Rx MONITORING) 1 each PRN DAILY PRN MC SEE COMMENTS; Start 08/10/20 at 14:30; Stop 08/12/20 at 14:29 Active Scripts Active Tylenol (Acetaminophen) 325 Mg Tablet 650 Mg PO PRN Q6HRS PRN 30 Days Effient (Prasugrel Hcl) 10 Mg Tablet 1 Tab PO DAILY Reported Metoprolol Tartrate 50 Mg Tablet 1.5 Tab PO BID Losartan Potassium 50 Mg Tablet 100 Mg PO DAILY Atorvastatin Calcium 80 Mg Tablet 80 Mg PO HS Dexilant (Dexlansoprazole) 60 Mg Cap.drRupalmp 1 Cap PO DAILY Finasteride 5 Mg Tablet 1 Tab PO DAILY Lasix (Furosemide) 40 Mg Tablet 1 Tab PO DAILY Potassium Chloride (Potassium Chloride) 20 Meq Tablet.er 20 Meq PO DAILY Aspirin 81 Mg Tab.chew 1 Tab PO DAILY Tamsulosin Hcl 0.4 Mg Cap.er.24h 1 Cap PO DAILY Allergies Allergies: Coded Allergies: No Known Drug Allergies (Unverified , 05/20/20) ROS Review of System GENERAL: No history of weight change, weakness or fevers. SKIN: No bruising, hair changes or rashes. EYES: No blurred, double or loss of vision. NOSE AND THROAT: No history of nosebleeds, hoarseness or sore throat. HEART: Chest pain. Denies palpitations. LUNGS: Denies cough, hemoptysis, wheezing or shortness of breath. GASTROINTESTINAL: Denies nausea, vomiting, abdominal pain. GENITOURINARY: Denies dysuria, frequency, urgency, hematuria. NEUROLOGIC: Denies history of numbness, tingling, tremor or weakness. PSYCHIATRIC: Denies anxiety, denies depression. ENDOCRINE: No history of heat or cold intolerance, polyuria or polydipsia. EXTREMITIES: Denies muscle weakness, joint pain, pain on walking or stiffness. Physical Exam Physical Exam General: Alert, Oriented X3, Cooperative, No acute distress HEENT: PERRLA, EOMI Lungs: Clear to auscultation, Normal air movement Heart: RRR, no murmurs Cardiovascular: S1, S2 Abdomen: Normal bowel sounds, Soft, No tenderness Extremities: No clubbing, No cyanosis Skin: No rashes, No significant lesion Neuro: Normal speech, Normal tone, Sensation intact Psych/Mental Status: Mental status NL, Mood NL Vitals Vitals Vital Signs Date Time Temp Pulse Resp B/P (MAP) Pulse Ox O2 Delivery O2 Flow Rate FiO2 08/10/20 16:00 56 144/117 (126) 99 Room Air 08/10/20 11:36 98.3 16 98.3 Labs Labs Laboratory Tests Test 08/10/20 12:20 08/10/20 17:15 White Blood Count 7.3 x10^3/uL (4.0-11.0) Red Blood Count 4.67 x10^6/uL (4.30-5.70) Hemoglobin 14.0 g/dL (13.0-17.5) Hematocrit 41.9 % (39.0-53.0) Mean Corpuscular Volume 90 fL (79-100) Mean Corpuscular Hemoglobin 30 pg (25-35) Mean Corpuscular Hemoglobin Concent 34 g/dL (31-37) Red Cell Distribution Width 12.8 % (11.5-14.5) Platelet Count 153 x10^3/uL (140-400) Neutrophils (%) (Auto) 65 % (31-73) Lymphocytes (%) (Auto) 22 % (24-48) Monocytes (%) (Auto) 6 % (0-9) Eosinophils (%) (Auto) 6 % (0-3) Basophils (%) (Auto) 1 % (0-3) Neutrophils # (Auto) 4.8 x10^3/uL (1.8-7.7) Lymphocytes # (Auto) 1.6 x10^3/uL (1.0-4.8) Monocytes # (Auto) 0.4 x10^3/uL (0.0-1.1) Eosinophils # (Auto) 0.5 x10^3/uL (0.0-0.7) Basophils # (Auto) 0.1 x10^3/uL (0.0-0.2) D-Dimer (Liberty) 0.83 ug/mlFEU (0.00-0.50) Sodium Level 137 mmol/L (136-145) Potassium Level 4.1 mmol/L (3.5-5.1) Chloride Level 104 mmol/L (98-107) Carbon Dioxide Level 27 mmol/L (21-32) Anion Gap 6 (6-14) Blood Urea Nitrogen 13 mg/dL (8-26) Creatinine 1.1 mg/dL (0.7-1.3) Estimated GFR (Cockcroft-Gault) 80.8 Glucose Level 121 mg/dL (70-99) Calcium Level 8.9 mg/dL (8.5-10.1) Troponin I Quantitative 0.025 ng/mL (0.000-0.055) < 0.017 ng/mL (0.000-0.055) Laboratory Tests Test 08/10/20 12:20 08/10/20 17:15 White Blood Count 7.3 x10^3/uL (4.0-11.0) Red Blood Count 4.67 x10^6/uL (4.30-5.70) Hemoglobin 14.0 g/dL (13.0-17.5) Hematocrit 41.9 % (39.0-53.0) Mean Corpuscular Volume 90 fL (79-100) Mean Corpuscular Hemoglobin 30 pg (25-35) Mean Corpuscular Hemoglobin Concent 34 g/dL (31-37) Red Cell Distribution Width 12.8 % (11.5-14.5) Platelet Count 153 x10^3/uL (140-400) Neutrophils (%) (Auto) 65 % (31-73) Lymphocytes (%) (Auto) 22 % (24-48) Monocytes (%) (Auto) 6 % (0-9) Eosinophils (%) (Auto) 6 % (0-3) Basophils (%) (Auto) 1 % (0-3) Neutrophils # (Auto) 4.8 x10^3/uL (1.8-7.7) Lymphocytes # (Auto) 1.6 x10^3/uL (1.0-4.8) Monocytes # (Auto) 0.4 x10^3/uL (0.0-1.1) Eosinophils # (Auto) 0.5 x10^3/uL (0.0-0.7) Basophils # (Auto) 0.1 x10^3/uL (0.0-0.2) D-Dimer (Liberty) 0.83 ug/mlFEU (0.00-0.50) Sodium Level 137 mmol/L (136-145) Potassium Level 4.1 mmol/L (3.5-5.1) Chloride Level 104 mmol/L (98-107) Carbon Dioxide Level 27 mmol/L (21-32) Anion Gap 6 (6-14) Blood Urea Nitrogen 13 mg/dL (8-26) Creatinine 1.1 mg/dL (0.7-1.3) Estimated GFR (Cockcroft-Gault) 80.8 Glucose Level 121 mg/dL (70-99) Calcium Level 8.9 mg/dL (8.5-10.1) Troponin I Quantitative 0.025 ng/mL (0.000-0.055) < 0.017 ng/mL (0.000-0.055) Images Images EXAM: CT Pulmonary Angiogram INDICATION: Reason: chest pain, sob, elevated ddimer / Spl. Instructions: IV OMNI 350 100 MLS / History: TECHNIQUE: Multi-detector row images were acquired from the thoracic inlet through the upper abdomen with the use of IV contrast. Sagittal and coronal images were acquired from the transaxial data. MIP images of the pulmonary arteries were obtained. All CT scans performed at this facility utilize dose optimization techniques as appropriate to the exam, including the following: Automated exposure control and adjustment of the mA and/or KV according to patient size (this includes techniques or standardized protocols for targeted exams where dose is indication/reason for exam). IV CONTRAST: Administered COMPARISON: 2 view chest x-ray from earlier the same day FINDINGS: PULMONARY ARTERIES: No pulmonary emboli are identified. CARDIOVASCULAR: Normal heart size. No pericardial effusion. There are multivessel coronary calcifications Aorta is normal caliber. MEDIASTINUM & GRACIA: No adenopathy or masses. LUNGS: No pulmonary infiltrate, nodule, or other focal abnormality. PLEURAL SPACE: No pleural effusions or pneumothorax. OSSEOUS & SOFT TISSUE: Unremarkable ABDOMEN: The visualized portions of the upper abdomen are unremarkable. IMPRESSION: Coronary artery disease. Otherwise unremarkable CT pulmonary angiogram. No evidence of pulmonary emboli. VTE Prophylaxis Ordered VTE Prophylaxis Devices: No VTE Pharmacological Prophylaxi: Yes Assessment/Plan Assessment/Plan Chest pain ACS Plan: We will trend troponins. Initial troponin detectable but not elevated. We will consult cardiology as needed IV morphine for pain, sublingual nitrogen PRN FEN - Cardiac diet PPX - Lovenox FULL CODE Dispo - observation for above Justifications for Admission Other Justification RIKKI HAQ MD Aug 10, 2020 18:02
[2020-08-10 18:10] VITALS: BP 191/65
[2020-08-10] MEDS ORDERED: ACETAMINOPHEN 325 MG TABLET. PO PRN (18:15)
[2020-08-10] MEDS ORDERED: AMLO5TAB10 PO (18:41)
[2020-08-10] MEDS ORDERED: PROP80CA53 PO (18:41)
[2020-08-10] MEDS ORDERED: ANTI-COAG MONITOR BY PHARMACY. MC PRN (19:15)
[2020-08-10] MEDS: ENALAPRILAT 1.25 MG/ML VIAL. IVP SCH (19:46)
[2020-08-10] MEDS ORDERED: ATORVASTATIN CALCIUM 40 MG TABLET. PO SCH (21:00)
[2020-08-10] MEDS ORDERED: METOPROLOL TART IMMED RELEASE 50 MG TABLET. PO SCH (21:00)
[2020-08-10 23:04] VITALS: BP 134/65
[2020-08-11 02:50] VITALS: BP 154/67
[2020-08-11] MEDS: ENALAPRILAT 1.25 MG/ML VIAL. IVP SCH ×2 (06:37)
[2020-08-11 07:00] VITALS: BP 149/83
[2020-08-11] MEDS ORDERED: PANTOPRAZOLE 40 MG TABLET.DR. PO SCH (07:30)
--- NOTE | 2020-08-11 08:37 | PDOC2 ---
CARDIAC CONSULT DATE OF CONSULT Date of Consult DATE: 08/11/20 TIME: 08:05 REASON FOR CONSULT Reason for Consult: chest pain REFERRING PHYSICIAN Referring Physician: Luna SOURCE Source: Chart review, Patient HISTORY OF PRESENT ILLNESS HISTORY OF PRESENT ILLNESS This is a pleasant 65 yo male admitted for complains of chest pain. Reports that yesterday morning he woke up with bloating and sharp pin sensation discomfort to the middle of his chest. Denies any exertional chest pain or LAM. 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 He had a stress test last month which was normal accdg to him. He has been having a lot of bloating lately despite being on PPI. He has been waking up at night mostly clearing his throat coughing, soreness to the back of his throat, bloating and sometimes dizzy and with sometimes heartburn. This has been happening everyday. No prior EGD. PAST MEDICAL HISTORY Past Medical History Cardiovascular: CAD, CHF, HTN, Pulmonary hypertension (mild) Pulmonary: Other (ROSITA with CPAP) CENTRAL NERVOUS SYSTEM: Other (No pertinent history) GI: GERD, Other (colon polyp) Heme/Onc: No pertinent hx Hepatobiliary: No pertinent hx Psych: No pertinent hx Musculoskeletal: Osteoarthritis Infectious disease: No pertinent hx ENT: No pertinent hx Renal/: Benign prostatic enlarg. Endocrine: Diabetes Dermatology: No pertinent hx PAST SURGICAL HISTORY Past Surgical History PCI/JULIETA to OM1 04/2017 FAMILY HISTORY Family History: Coronary Artery Disease SOCIAL HISTORY Smoke: No ALCOHOL: occassional Drugs: None Lives: with Family CURRENT MEDICATIONS CURRENT MEDICATIONS Current Medications Medications (Trade) Dose Ordered Sig/Stacey Route PRN Reason Start Time Stop Time Status Last Admin Dose Admin Iohexol (Omnipaque 350 Mg/ml) 100 ml 1X ONCE IV 08/10/20 14:30 08/10/20 14:31 DC 08/10/20 14:30 Aspirin (Aspirin Chewable) 324 mg 1X ONCE PO 08/10/20 18:00 08/10/20 18:01 DC 08/10/20 19:42 Acetaminophen (Tylenol) 650 mg PRN Q6HRS PRN PO headache 08/10/20 18:15 08/10/20 19:40 Enalaprilat (Vasotec Inj) 1.25 mg Q6HRS IVP 08/10/20 19:30 08/11/20 06:37 Enoxaparin Sodium (Lovenox 120mg Syringe) 110 mg Q12HR SQ 08/10/20 19:30 08/10/20 19:44 Tamsulosin HCl (Flomax) 0.4 mg DAILY PO 08/11/20 00:00 08/11/20 06:39 DC 08/11/20 00:07 ALLERGIES ALLERGIES: Coded Allergies: No Known Drug Allergies (Unverified , 05/20/20) ROS Review of System 14 point ROS evaluated with pertinent positives noted per HPI PHYSICAL EXAM General: Alert, Oriented X3, Cooperative, No acute distress HEENT: Atraumatic, Mucous membr. moist/pink Lungs: Clear to auscultation, Normal air movement Heart: Regular rate (SR), Normal S1, Normal S2, Other (2/6 systolic murmur to LLS border) Abdomen: Soft, No tenderness, Other (obese) Extremities: No cyanosis, No edema Skin: No breakdown, No significant lesion Neuro: Normal speech, Sensation intact Psych/Mental Status: Mental status NL, Mood NL MUSCULOSKELETAL: Osteoarthritic changes both hands VITALS/I&O VITALS/I&O: Vital Signs Date Time Temp Pulse Resp B/P (MAP) Pulse Ox O2 Delivery O2 Flow Rate FiO2 08/11/20 06:37 49 154/67 08/11/20 02:50 97.8 19 99 Room Air 97.8 I & O 08/10/20 08/10/20 08/11/20 15:00 23:00 07:00 Intake Total 300 ml Balance 300 ml LABS Lab: Laboratory Tests Test 08/10/20 12:20 08/10/20 17:15 08/10/20 20:20 White Blood Count 7.3 x10^3/uL (4.0-11.0) Red Blood Count 4.67 x10^6/uL (4.30-5.70) Hemoglobin 14.0 g/dL (13.0-17.5) Hematocrit 41.9 % (39.0-53.0) Mean Corpuscular Volume 90 fL (79-100) Mean Corpuscular Hemoglobin 30 pg (25-35) Mean Corpuscular Hemoglobin Concent 34 g/dL (31-37) Red Cell Distribution Width 12.8 % (11.5-14.5) Platelet Count 153 x10^3/uL (140-400) Neutrophils (%) (Auto) 65 % (31-73) Lymphocytes (%) (Auto) 22 % (24-48) L Monocytes (%) (Auto) 6 % (0-9) Eosinophils (%) (Auto) 6 % (0-3) H Basophils (%) (Auto) 1 % (0-3) Neutrophils # (Auto) 4.8 x10^3/uL (1.8-7.7) Lymphocytes # (Auto) 1.6 x10^3/uL (1.0-4.8) Monocytes # (Auto) 0.4 x10^3/uL (0.0-1.1) Eosinophils # (Auto) 0.5 x10^3/uL (0.0-0.7) Basophils # (Auto) 0.1 x10^3/uL (0.0-0.2) D-Dimer (Liberty) 0.83 ug/mlFEU (0.00-0.50) H Sodium Level 137 mmol/L (136-145) Potassium Level 4.1 mmol/L (3.5-5.1) Chloride Level 104 mmol/L (98-107) Carbon Dioxide Level 27 mmol/L (21-32) Anion Gap 6 (6-14) Blood Urea Nitrogen 13 mg/dL (8-26) Creatinine 1.1 mg/dL (0.7-1.3) Estimated GFR (Cockcroft-Gault) 80.8 Glucose Level 121 mg/dL (70-99) H Calcium Level 8.9 mg/dL (8.5-10.1) Troponin I Quantitative 0.025 ng/mL (0.000-0.055) < 0.017 ng/mL (0.000-0.055) 0.029 ng/mL (0.000-0.055) Laboratory Tests 08/10/20 12:20 Laboratory Tests 08/10/20 12:20 ECHOCARDIOGRAM ECHOCARDIOGRAM <Conclusion> The left ventricle is normal size. The left ventricular systolic function is normal and the ejection fraction is within normal range. The Ejection Fraction is 50-55%. There is no significant aortic valvular stenosis. Doppler and Color Flow revealed no significant aortic regurgitation. Doppler and Color Flow revealed no mitral valve regurgitation noted. Doppler and Color Flow revealed trace tricuspid regurgitation. The PA pressure was estimated at 26 mmHg. DATE: 04/17/18 1155 STRESS TEST STRESS TEST Conclusion 1. Regadenoson cardioisotope stress test did not show any evidence of ischemia or infarct. 2. Normal left ventricular systolic function with ejection fraction calculated at 54%. 3. Low risk for cardiac events. DATE: 04/17/18 1508 HEART CATH HEART CATH Conclusion 1. One-vessel coronary artery disease involving the first obtuse marginal vessel successfully treated with 2 overlapping Xience drug eluting stents (3.25 x 28 mm and 3.5 x 15 mm). Recommendations ASA 81 mg daily Prasugrel 10mg daily for 1 year, prefer lifetime DAPT with plavix after 1 year if tolerated. Cardiac rehab and aggressive medical therapy. Final recommendations per Dr. Mao Sparks DATE: 04/24/17 1354 ASSESSMENT/PLAN ASSESSMENT/PLAN 1. Atypical chest pain:Due to GERD exacerbation doubt ACS 2. HTN urgency 3. HLP 4. CAD; past stents 5. DM2 6. ROSITA: CPAP compliant 7. GERD exacerbation 8. Asymptomatic SB: no pauses lowest rate at upper 30s likely due to propranolol Recommendations 1. Obtain recent stress test from 07/03/2020. Reported normal per pt. TTE today 2. Continue home PPI. Will need GI referral as an outpt 3. Continue secondary prevention measures. 4. Dietitian consult for GERD diet. Discussed significantly;y regarding mitigating GERD symptoms. 5. DC propranolol and will increase norvasc. Continue home statin ASA/effient. May start on lisinopril if BP remains labile 6. HBPM bid for the next week discussed. Follow up with LEXIE Santos APRN Aug 11, 2020 08:37
[2020-08-11] MEDS ORDERED: PRASUGREL 10 MG TABLET. PO SCH (09:00)
[2020-08-11] MEDS ORDERED: TAMSULOSIN 0.4 MG CAP.ER.24H. PO SCH ×3 (09:00→21:00)
[2020-08-11] MEDS ORDERED: FINASTERIDE 5 MG TABLET. PO SCH (09:00)
[2020-08-11] MEDS ORDERED: ASPIRIN CHEWABLE 81 MG TABLET. PO SCH (09:00)
[2020-08-11] MEDS ORDERED: POTASSIUM CHLORIDE 20 MEQ TABLET.ER. PO SCH (09:00)
[2020-08-11] MEDS ORDERED: PROPRANOLOL ER 60 MG CAP.SA.24H. PO SCH (09:00)
[2020-08-11] MEDS ORDERED: amLODIPine BESYLATE 5 MG TABLET PO SCH (09:00)
[2020-08-11] MEDS ORDERED: LOSARTAN POTASSIUM 50 MG TABLET. PO SCH (09:00)
[2020-08-11] MEDS ORDERED: FUROSEMIDE 40 MG TABLET. PO SCH (09:00)
[2020-08-11 10:35] VITALS: BP 149/82
--- NOTE | 2020-08-11 11:11 | PDOC ---
[employer] PROGRESS NOTE Date of Service DOS: DATE: 08/11/20 TIME: 10:59 Chief Complaint Chief Complaint Chest pain ACS Plan: Troponins stable, detectable but not elevated. Cardiology consulted IV morphine for pain, sublingual nitrogen PRN FEN - Cardiac diet PPX - Lovenox FULL CODE Dispo - observation for above History of Present Illness History of Present Illness Patient 65-year-old male with past medical history of coronary artery disease with stents, who presents with intermittent left-sided chest pain for the past 3 to 4 weeks. He reports sharp chest pain, 7/10. Patient denies any aggravating or alleviating symptoms to his chest pain. He initially attributed his symptoms to gas, but saw his PCP after his symptoms did not improve spontaneously. His PCP thought his symptoms were musculoskeletal in nature, and evaluated patient with a normal EKG. Patient denies any associated shortness of breath, nausea, or vomiting. 08/11/2020 Troponins remain stable. No plan for cardiology intervention. His chest pain is burning in nature, will discharge with PPI. Recommend discontinue propranolol due to borderline bradycardia. Informed patient to follow-up with his PCP within 1 week. Vitals/I&O Vitals/I&O: Vital Signs Date Time Temp Pulse Resp B/P (MAP) Pulse Ox O2 Delivery O2 Flow Rate FiO2 08/11/20 10:35 97.6 80 20 149/82 (104) 97 Room Air 97.6 08/11/20 07:00 2.0 I & O 08/10/20 08/10/20 08/11/20 15:00 23:00 07:00 Intake Total 300 ml Balance 300 ml Physical Exam General: Alert, Oriented X3, Cooperative, No acute distress Lungs: Clear Abdomen: Normal bowel sounds Extremities: No clubbing, No cyanosis, No edema Skin: No rashes Labs Labs: Laboratory Tests Test 08/10/20 12:20 08/10/20 17:15 08/10/20 20:20 08/11/20 08:10 White Blood Count 7.3 x10^3/uL (4.0-11.0) Red Blood Count 4.67 x10^6/uL (4.30-5.70) Hemoglobin 14.0 g/dL (13.0-17.5) Hematocrit 41.9 % (39.0-53.0) Mean Corpuscular Volume 90 fL (79-100) Mean Corpuscular Hemoglobin 30 pg (25-35) Mean Corpuscular Hemoglobin Concent 34 g/dL (31-37) Red Cell Distribution Width 12.8 % (11.5-14.5) Platelet Count 153 x10^3/uL (140-400) Neutrophils (%) (Auto) 65 % (31-73) Lymphocytes (%) (Auto) 22 % (24-48) Monocytes (%) (Auto) 6 % (0-9) Eosinophils (%) (Auto) 6 % (0-3) Basophils (%) (Auto) 1 % (0-3) Neutrophils # (Auto) 4.8 x10^3/uL (1.8-7.7) Lymphocytes # (Auto) 1.6 x10^3/uL (1.0-4.8) Monocytes # (Auto) 0.4 x10^3/uL (0.0-1.1) Eosinophils # (Auto) 0.5 x10^3/uL (0.0-0.7) Basophils # (Auto) 0.1 x10^3/uL (0.0-0.2) D-Dimer (Liberty) 0.83 ug/mlFEU (0.00-0.50) Sodium Level 137 mmol/L (136-145) Potassium Level 4.1 mmol/L (3.5-5.1) Chloride Level 104 mmol/L (98-107) Carbon Dioxide Level 27 mmol/L (21-32) Anion Gap 6 (6-14) Blood Urea Nitrogen 13 mg/dL (8-26) Creatinine 1.1 mg/dL (0.7-1.3) Estimated GFR (Cockcroft-Gault) 80.8 Glucose Level 121 mg/dL (70-99) Calcium Level 8.9 mg/dL (8.5-10.1) Troponin I Quantitative 0.025 ng/mL (0.000-0.055) < 0.017 ng/mL (0.000-0.055) 0.029 ng/mL (0.000-0.055) < 0.017 ng/mL (0.000-0.055) Review of Systems Review of Systems: Burning epigastric pain. Denies shortness of breath, denies nausea, denies fever. Assessment and Plan Problems: (1) Chest pain Qualifiers: Qualified Codes: R07.9 - Chest pain, unspecified Comment Review of Relevant I have reviewed the following items rona (where applicable) has been applied. Medications: Current Medications Medications (Trade) Dose Ordered Sig/Stacey Route PRN Reason Start Time Stop Time Status Last Admin Dose Admin Iohexol (Omnipaque 350 Mg/ml) 100 ml 1X ONCE IV 08/10/20 14:30 08/10/20 14:31 DC 08/10/20 14:30 Aspirin (Aspirin Chewable) 324 mg 1X ONCE PO 08/10/20 18:00 08/10/20 18:01 DC 08/10/20 19:42 Acetaminophen (Tylenol) 650 mg PRN Q6HRS PRN PO headache 08/10/20 18:15 08/10/20 19:40 Aspirin (Aspirin Chewable) 81 mg DAILY PO 08/11/20 09:00 08/11/20 08:23 Furosemide (Lasix) 40 mg DAILY PO 08/11/20 09:00 08/11/20 08:24 Potassium Chloride (Klor-Con) 20 meq DAILY PO 08/11/20 09:00 08/11/20 08:24 Prasugrel (Effient) 10 mg DAILY PO 08/11/20 09:00 08/11/20 08:24 Pantoprazole Sodium (Protonix) 40 mg DAILYAC PO 08/11/20 07:30 08/11/20 08:20 Amlodipine Besylate (Norvasc) 5 mg DAILY PO 08/11/20 09:00 08/11/20 08:24 Enalaprilat (Vasotec Inj) 1.25 mg Q6HRS IVP 08/10/20 19:30 08/11/20 06:37 Enoxaparin Sodium (Lovenox 120mg Syringe) 110 mg Q12HR SQ 08/10/20 19:30 08/10/20 19:44 Tamsulosin HCl (Flomax) 0.4 mg DAILY PO 08/11/20 00:00 08/11/20 06:39 DC 08/11/20 00:07 Justifications for Admission Other Justification RIKKI HAQ MD Aug 11, 2020 11:11
[2020-08-11] MEDS ORDERED: amLODIPine BESYLATE 5 MG TABLET PO ONE (12:00)
--- NOTE | 2020-08-11 12:11 | NUR ---
SS following for discharge planning. SS reviewed pt chart and discussed with pt RN. Pt is from home and is currently on room air. ECHO ordered. Possible discharge to home today. SS will continue to follow for discharge planning.
[2020-08-11 12:22] LABS: CHOLESTEROL/HDL RATIO 3.4
[2020-08-11] MEDS ORDERED: PANT40TA77 PO (12:29)
--- NOTE | 2020-08-11 12:32 | PDOC3 ---
Discharge Summary Visit Information Date of Admission: Aug 10, 2020 Date of Discharge: Aug 11, 2020 Brief Hospital Course Allergies Allergies Coded Allergies Type Severity Reaction Last Updated Verified No Known Drug Allergies 05/20/20 No Vital Signs Vital Signs Date Time Temp Pulse Resp B/P (MAP) Pulse Ox O2 Delivery O2 Flow Rate FiO2 08/11/20 10:35 97.6 80 20 149/82 (104) 97 Room Air 97.6 08/11/20 07:00 2.0 Lab Results Laboratory Tests Test 08/10/20 12:20 08/10/20 17:15 08/10/20 20:20 08/11/20 08:10 White Blood Count 7.3 x10^3/uL (4.0-11.0) Red Blood Count 4.67 x10^6/uL (4.30-5.70) Hemoglobin 14.0 g/dL (13.0-17.5) Hematocrit 41.9 % (39.0-53.0) Mean Corpuscular Volume 90 fL (79-100) Mean Corpuscular Hemoglobin 30 pg (25-35) Mean Corpuscular Hemoglobin Concent 34 g/dL (31-37) Red Cell Distribution Width 12.8 % (11.5-14.5) Platelet Count 153 x10^3/uL (140-400) Neutrophils (%) (Auto) 65 % (31-73) Lymphocytes (%) (Auto) 22 % (24-48) Monocytes (%) (Auto) 6 % (0-9) Eosinophils (%) (Auto) 6 % (0-3) Basophils (%) (Auto) 1 % (0-3) Neutrophils # (Auto) 4.8 x10^3/uL (1.8-7.7) Lymphocytes # (Auto) 1.6 x10^3/uL (1.0-4.8) Monocytes # (Auto) 0.4 x10^3/uL (0.0-1.1) Eosinophils # (Auto) 0.5 x10^3/uL (0.0-0.7) Basophils # (Auto) 0.1 x10^3/uL (0.0-0.2) D-Dimer (Liberty) 0.83 ug/mlFEU (0.00-0.50) Sodium Level 137 mmol/L (136-145) Potassium Level 4.1 mmol/L (3.5-5.1) Chloride Level 104 mmol/L (98-107) Carbon Dioxide Level 27 mmol/L (21-32) Anion Gap 6 (6-14) Blood Urea Nitrogen 13 mg/dL (8-26) Creatinine 1.1 mg/dL (0.7-1.3) Estimated GFR (Cockcroft-Gault) 80.8 Glucose Level 121 mg/dL (70-99) Calcium Level 8.9 mg/dL (8.5-10.1) Troponin I Quantitative 0.025 ng/mL (0.000-0.055) < 0.017 ng/mL (0.000-0.055) 0.029 ng/mL (0.000-0.055) < 0.017 ng/mL (0.000-0.055) Triglycerides Level 90 mg/dL (0-150) Cholesterol Level 136 mg/dL (0-200) LDL Cholesterol, Calculated 78 mg/dL (0-100) VLDL Cholesterol, Calculated 18 mg/dL (0-40) Non-HDL Cholesterol Calculated 96 mg/dL (0-129) HDL Cholesterol 40 mg/dL (40-60) Cholesterol/HDL Ratio 3.4 Laboratory Tests Test 08/10/20 17:15 08/10/20 20:20 08/11/20 08:10 Troponin I Quantitative < 0.017 ng/mL (0.000-0.055) 0.029 ng/mL (0.000-0.055) < 0.017 ng/mL (0.000-0.055) Triglycerides Level 90 mg/dL (0-150) Cholesterol Level 136 mg/dL (0-200) LDL Cholesterol, Calculated 78 mg/dL (0-100) VLDL Cholesterol, Calculated 18 mg/dL (0-40) Non-HDL Cholesterol Calculated 96 mg/dL (0-129) HDL Cholesterol 40 mg/dL (40-60) Cholesterol/HDL Ratio 3.4 Brief Hospital Course Mr. Connell is a 65 old male who presented with chest pain. His troponins were trended and cardiology was consulted. No intervention. His chest pain is burning in nature, he was discharged home with PPI and recommended to discontinue propranolol. Recommended close PCP follow-up. Discharge Information Condition at Discharge: Stable Follow Up: Weeks (Primary care provider) Disposition/Orders: D/C to Home Scheduled Amlodipine Besylate (Amlodipine Besylate) 5 Mg Tablet, 5 MG PO DAILY for htn, (Reported) Entered as Reported by: RUI NIEVES RN on 08/10/201840 Last Taken: Unknown Dose on 08/10/20 Last Action: Continued on 08/10/201845 by RUI NIEVES RN Aspirin (Aspirin) 81 Mg Tab.chew, 1 TAB PO DAILY, #30 Ref 3 (Reported) Entered as Reported by: DAVID CORDERO on 07/16/142206 Last Action: Reviewed on 08/10/201840 by RUI NIEVES RN Atorvastatin Calcium (Atorvastatin Calcium) 80 Mg Tablet, 80 MG PO HS for FOR CHOLESTEROL, #30 Ref 0 (Reported) Entered as Reported by: THIAGO HURTADO on 04/22/171635 Last Action: Reviewed on 08/10/201840 by RUI NIEVES RN Furosemide (Lasix) 40 Mg Tablet, 1 TAB PO DAILY, #90 Ref 1 (Reported) Entered as Reported by: THIAGO HURTADO on 04/22/171635 Last Action: Reviewed on 08/10/201840 by RUI NIEVES RN Pantoprazole Sodium (Pantoprazole Sodium ) 40 Mg Tablet.dr, 40 MG PO DAILYAC for GERD for 60 Days, #60 Ref 1 Prescribed by: RIKKI HAQ MD on 08/11/20 1229 Potassium Chloride (Potassium Chloride ) 20 Meq Tablet.er, 20 MEQ PO DAILY, (Reported) Entered as Reported by: THIAGO HURTADO on 04/22/171635 Last Action: Reviewed on 08/10/201840 by RUI NIEVES RN Prasugrel Hcl (Effient) 10 Mg Tablet, 1 TAB PO DAILY, #90 Ref 1 Prescribed by: RIKKI BAEZA on 04/25/17 1104 Last Action: Reviewed on 08/10/201840 by RUI NIEVES RN Tamsulosin Hcl (Tamsulosin Hcl) 0.4 Mg Cap.er.24h, 1 CAP PO DAILY, #30 Ref 5 (Reported) Entered as Reported by: DAVID CRODERO on 07/16/142206 Last Action: Reviewed on 08/10/201840 by RUI NIEVES RN Scheduled PRN Acetaminophen (Tylenol) 325 Mg Tablet, 650 MG PO PRN Q6HRS PRN for headache for 30 Days, #90 Prescribed by: MIGUEL SANTO MD on 05/26/20 1534 Last Action: Reviewed on 08/10/201840 by RUI NIEVES RN Discontinued Medications Dexlansoprazole (Dexilant) 60 Mg Cap.mp, 1 CAP PO DAILY, #90 Ref 3 (Reported) Entered as Reported by: THIAGO HURTADO on 04/22/17 1636 Last Action: Reviewed on 08/10/201840 by RUI NIEVES RN Finasteride (Finasteride) 5 Mg Tablet, 1 TAB PO DAILY, #30 Ref 11 (Reported) Entered as Reported by: THIAGO HURTADO on 04/22/17 163 Last Action: Discontinued on 08/10/201840 by RUI NIEVES RN Losartan Potassium (Losartan Potassium) 50 Mg Tablet, 100 MG PO DAILY for htn, (Reported) Entered as Reported by: THIGAO HURTADO on 04/22/17 1636 Last Action: Discontinued on 08/10/201840 by RUI NIEVES RN Metoprolol Tartrate (Metoprolol Tartrate) 50 Mg Tablet, 1.5 TAB PO BID for htn, #60 Ref 5 (Reported) Entered as Reported by: Rita Blair on 05/23/17 0329 Last Action: Discontinued on 08/10/201840 by RUI NIEVES RN Propranolol Hcl (Inderal Xl) 80 Mg Cap.er.24h, 60 MG PO DAILY for heart rate, (Reported) Entered as Reported by: RUI NIEVES RN on 08/10/201840 Last Taken: Unknown Dose on 08/10/20 Last Action: Converted on 08/10/201845 by RUI NIEVES RN Justicifation of Admission Dx: Justifications for Admission: Justification of Admission Dx: RIKKI Fonseca MD Aug 11, 2020 12:32
[2020-08-11 12:33] VITALS: BP 149/82
--- NOTE | 2020-08-11 14:01 | CARD ---
MR#: [id number] Date of Study: 08/11/2020 Ordering Physician: LEXIE DAN, Referring Physician: LEXIE DAN, Tech: Felicita Sanchez [facility] APPROVED REPORT EXAM: Two-dimensional and M-mode echocardiogram with Doppler and color Doppler. Other Information Quality : Good Rhythm : Bradycardia INDICATION Congestive Heart Failure 2D DIMENSIONS RVDd2.8 (2.9-3.5cm)Left Atrium(2D)4.1 (1.6-4.0cm) IVSd0.9 (0.7-1.1cm)Aortic Root(2D)3.0 (2.0-3.7cm) LVDd5.3 (3.9-5.9cm)LVOT Diameter2.1 (1.8-2.4cm) PWd1.0 (0.7-1.1cm)LVDs4.0 (2.5-4.0cm) FS (%) 24.6 %SV66.2 ml LVEF(%)48.3 (>50%) M-Mode DIMENSIONS LVDd5.55 (4.0-5.6cm)FS (%) 1 % LVDs5.48 (2.0-3.8cm)ESV(Teich)146.4 ml LVEF(%)3 (>50%) Mitral Valve MV E Kwicihop23.0cm/sMV DECEL [id number] MV A Ifjkpgvy45.6cm/sE/A Ratio0.9 Tricuspid Valve TR P. Htaozezz948ql/sRAP WNRNYKYQ0fcMz TR Peak Gr.56owQaLDQS04plXe Pulmonary Vein S1 Vtwoovmv65.5cm/sD2 Zmzsxrqr83.3cm/s LEFT VENTRICLE The left ventricle is normal size. There is normal left ventricular wall thickness. The left ventricu lar systolic function is mildly reduced. The Ejection Fraction is 45-50%. There is mild global hypoki nesis of the left ventricle. Transmitral Doppler flow pattern is Grade I-abnormal relaxation pattern. RIGHT VENTRICLE The right ventricle is normal size. The right ventricular systolic function is normal. ATRIA The left atrium is mildly dilated. Dilated coronary sinus is observed. The right atrium size is teto l. The interatrial septum is intact with no evidence for an atrial septal defect or patent foramen ov ozzy as noted on 2-D or Doppler imaging. AORTIC VALVE The aortic valve is calcified but opens well. Doppler and Color Flow revealed no significant aortic r egurgitation. There is no significant aortic valvular stenosis. MITRAL VALVE The mitral valve is thickened but opens well. There is no evidence of mitral valve prolapse. There is no mitral valve stenosis. Doppler and Color-flow revealed trace mitral regurgitation. TRICUSPID VALVE The tricuspid valve is normal in structure and function. Doppler and Color Flow revealed trace tricus pid regurgitation. The PA pressure was estimated at 27 mmHg. There is no tricuspid valve stenosis. PULMONIC VALVE The pulmonic valve is not well visualized. Doppler and Color Flow revealed trace to mild pulmonic kunal vular regurgitation. There is no pulmonic valvular stenosis. GREAT VESSELS The aortic root is normal in size. The ascending aorta is normal in size. The IVC is normal in size a nd collapses >50% with inspiration. PERICARDIAL EFFUSION There is no evidence of significant pericardial effusion. Critical Notification Critical Value: No <Conclusion> The left ventricular systolic function is mildly reduced. The Ejection Fraction is 45-50%. There is mild global hypokinesis of the left ventricle. Doppler and Color Flow revealed trace to mild pulmonic valvular regurgitation. Signed by : Quintin Roger, Electronically Approved : 08/11/2020 14:01:08
[2020-08-11] MEDS ORDERED: AMLO10TA8 PO (14:58)
--- NOTE | 2020-08-11 15:40 | NUR ---
Discharge Note: KEYON GREEN Discharge instructions and discharge home medications reviewed with Patient and a copy given. All questions have been answered and understanding verbalized. The following instructions and handouts were given: cardiac diet, chest pain, and GERD education. Discontinued iv line and catheter intact. Patient discharged to home with self-care.
[2020-08-12] MEDS ORDERED: amLODIPine BESYLATE 5 MG TABLET PO SCH (09:00)
== END 2020-08-11 17:12 | disposition home or self-care (01) ==
LOC: ER 11:34 → ED HOLD 15:55 → 2 SOUTH 17:24
PROVIDERS: ADMIT Family Medicine; ATTEND Family Medicine
DX: R07.89 Other chest pain (principal); I25.10 Atherosclerotic heart disease of native coronary artery without angina pectoris; K21.9 Gastro-esophageal reflux disease without esophagitis; I11.0 Hypertensive heart disease with heart failure; I50.9 Heart failure, unspecified; E78.00 Pure hypercholesterolemia, unspecified; N40.0 Benign prostatic hyperplasia without lower urinary tract symptoms; G47.30 Sleep apnea, unspecified; F17.200 Nicotine dependence, unspecified, uncomplicated; G47.33 Obstructive sleep apnea (adult) (pediatric); N40.1 Benign prostatic hyperplasia with lower urinary tract symptoms; E11.9 Type 2 diabetes mellitus without complications; E78.5 Hyperlipidemia, unspecified; I05.0 Rheumatic mitral stenosis; I27.20 Pulmonary hypertension, unspecified; Z95.5 Presence of coronary angioplasty implant and graft
CPT/HCPCS: 36415; 71046; 71275; 80048; 80061; 84484; 85025; 85379; 93005; 93306; 96372; 96374; 96376; 99285; G0378; J1650; J3490; Q9967; G0379

== ENCOUNTER 2020-11-20 22:11 | Inpatient (IN) | payer MEDICARE ==
[~2020-11-20] VITALS: Ht 172.7 cm; Wt 101.3 kg
[~2020-11-20 22:11] MED LIST changes: +AMLO-186 PO; +AMLO-187 PO; -AMLO10TA8 PO; -CLIN150C14 PO; +CLIN150C15 PO; +PANT40TA77 PO; +PROP80CA53 PO
[2020-11-20] MEDS ORDERED: NITROGLYCERIN SUBLINGUAL 0.4 MG BOTTLE OF 25. SL PRN ×2 (22:45→23:30)
[2020-11-20] MEDS ORDERED: MORPHINE SULFATE 4 MG/ML VIAL. IV/SQ PRN (22:45)
--- NOTE | 2020-11-20 22:48 | PHYS DOC ---
Past Medical History Past Medical History: CAD, CHF, GERD, High Cholesterol, Hypertension, Other Additional Past Medical Histor: urinary retention, SLEEP APNEA, GOUT, BPH, Past Surgical History: Other Additional Past Surgical Histo: cardiac cath with stents Smoking Status: Former Smoker Alcohol Use: Occasionally Drug Use: None General Adult EDM: Chief Complaint: DIZZY/LIGHT HEADED HPI: HPI: Patient is a 65 year old male patient with history of CHF, CAD with stents, hypertension, high cholesterol, prediabetes, who presents to the ED today with multiple complaints. Patient is complaining of dizziness that began today with mild left sided chest pain described as sharp and intermittent, symptoms began after having chili a couple hours ago. Denies any nausea or vomiting. Denies any abdominal pain. He is also complaining of a mild generalized headache that has been going on for 3 days. He states the headache is intermittent. Reports photophobia. Denies this being the worst headache in his life. Review of Systems: Review of Systems: Constitutional: Denies fever or chills. [] Eyes: Denies change in visual acuity. [] HENT: Denies nasal congestion or sore throat. [] Respiratory: Denies cough or shortness of breath. [] Cardiovascular: Reports left-sided chest pain GI: Denies abdominal pain, nausea, vomiting, bloody stools or diarrhea. [] : Denies dysuria. [] Musculoskeletal: Denies back pain or joint pain. [] Integument: Denies rash. [] Neurologic: Reports headache, dizziness, denies focal weakness or sensory changes. [] Psychiatric: Denies depression or anxiety. [] Heart Score: HEART Score for Chest Pain: HEART Score for Chest Pain Response (Comments) Value History Slighlty/Non-Suspicious 0 ECG Normal 0 Age > 65 2 Risk Factors >3 Risk Factors or Hx CAD 2 Total 4 Risk Factors: Risk Factors: DM, Current or recent (<one month) smoker, HTN, HLP, family history of CAD, obesity. Risk Scores: Score 0 - 3: 2.5% MACE over next 6 weeks - Discharge Home Score 4 - 6: 20.3% MACE over next 6 weeks - Admit for Clinical Observation Score 7 - 10: 72.7% MACE over next 6 weeks - Early Invasive Strategies Current Medications: Current Medications Medications (Trade) Dose Ordered Sig/Stacey Start Time Stop Time Status Last Admin Dose Admin Aspirin ([place] Aspirin) 325 mg 1X ONCE 11/20/20 22:45 11/20/20 22:46 UNV Famotidine (Pepcid Vial) 20 mg 1X ONCE 11/20/20 22:45 11/20/20 22:46 UNV Morphine Sulfate (Morphine Sulfate) 4 mg PRN Q15MIN PRN 11/20/20 22:45 11/21/20 22:44 UNV Nitroglycerin (Nitrostat) 0.4 mg PRN Q5MIN PRN 11/20/20 22:45 11/21/20 22:44 UNV Allergies: Allergies: Allergies Coded Allergies Type Severity Reaction Last Updated Verified No Known Drug Allergies 05/20/20 No Physical Exam: PE: Constitutional: Well developed, well nourished, no acute distress, non-toxic appearance. [] HENT: Normocephalic, atraumatic, bilateral external ears normal, oropharynx moist, no oral exudates, nose normal. [] Eyes: PERRLA, EOMI, conjunctiva normal, no discharge. [] Neck: Normal range of motion, no tenderness, supple, no stridor. [] Cardiovascular:Heart rate regular rhythm, no murmur [] Lungs & Thorax: Bilateral breath sounds clear to auscultation [] Abdomen: Bowel sounds normal, soft, no tenderness, no masses, no pulsatile masses. [] Skin: Warm, dry, no erythema, no rash. [] Back: No tenderness, no CVA tenderness. [] Extremities: No tenderness, no cyanosis, no clubbing, ROM intact, no edema. [] Neurologic: Alert and oriented X 3, normal motor function, normal sensory function, no focal deficits noted. Cranial nerves II through XII intact Psychologic: Affect normal, judgement normal, mood normal. [] EKG: EKG: [] Radiology/Procedures: Radiology/Procedures: []PATIENT: KEYON GREEN BACCOUNT: [id number]#: [id number] : 1955 LOCATION: ER AGE: 65 SEX: M EXAM STATUS: REG ER ORD. PHYSICIAN: ELSA HARDWICK APRN REASON: headache dizziness PROCEDURE: CT HEAD WO CONTRAST CT HEAD INDICATION: Reason: headache dizziness / Spl. Instructions: / History: COMPARISON: 05/20/2020. Exposure: One or more of the following individualized dose reduction techniques were utilized for this examination: 1. Automated exposure control 2. Adjustment of the mA and/or kV according to patient size 3. Use of iterative reconstruction technique TECHNIQUE: 5 mm contiguous axial images were obtained from the skull base to the vertex in both bone and soft tissue algorithm. FINDINGS: No abnormal attenuation within the brain parenchyma. No evidence of acute intracranial hemorrhage. No extra-axial fluid collections. No mass effect or midline shift. Ventricular size is appropriate. Basal cisterns are patent. No fractures identified.Gonzalez-white differentiation is preserved.Globes and orbits are within normal limits. Paranasal sinuses and mastoid air cells are clear. IMPRESSION: Unremarkable CT examination of the head without contrast, as above. Specifically, no evidence of an acute intracranial abnormality. Electronically signed by: Beck Guadalupe MD (11/20/2020 11:19 PM) [id number] DICTATED and SIGNED BY: BECK GUADALUPE MD DATE: 11/20/20 [id number] 0 Course & Med Decision Making: Course & Med Decision Making Pertinent Labs and Imaging studies reviewed. (See chart for details) This is a 65-year-old male patient presenting to the ED today complaining of dizziness, left-sided chest pain, symptoms began this evening after having chili. Also complaining of a headache for 3 days. CBC, CMP, troponin, EKG-negative CT of the head is negative. Considering his risk factors patient was admitted for chest pain rule out. Routine consult placed for cardiology. Dr. Tavarez will give report to Dr. Cristin Griffin Disclaimer: Elias Disclaimer: This electronic medical record was generated, in whole or in part, using a voice recognition dictation system. Departure Departure Impression: Primary Impression: Chest pain Qualified Codes: R07.9 - Chest pain, unspecified Additional Impression: Dizziness Disposition: ADMITTED INPT THIS HOSP Condition: STABLE Referrals: IGOR BRUNO MD (PCP) ELSA HARDWICK APRN Nov 20, 2020 22:48
[2020-11-20 22:50] LABS: BASO # 0.1 x10^3/uL (0.0-0.2); BASO % 1 % (0-3); EOS # 0.5 x10^3/uL (0.0-0.7); EOS % 6 % (0-3); HEMATOCRIT 41.2 % (39.0-53.0); HEMOGLOBIN 13.9 g/dL (13.0-17.5); LYMPH # 2.1 x10^3/uL (1.0-4.8); LYMPH % 24 % (24-48); MEAN CORPUSCULAR HEMOGLOBIN 30 pg (25-35); MEAN CORPUSCULAR HGB CONC 34 g/dL (31-37); MEAN CORPUSCULAR VOLUME 89 fL (79-100); MONO # 0.6 x10^3/uL (0.0-1.1); MONO % 7 % (0-9); NEUT # 5.4 x10^3/uL (1.8-7.7); NEUT % 62 % (31-73); PLATELET COUNT 145 x10^3/uL (140-400); RED BLOOD COUNT 4.62 x10^6/uL (4.30-5.70); RED CELL DISTRIBUTION WIDTH 13.4 % (11.5-14.5); WHITE BLOOD COUNT 8.7 x10^3/uL (4.0-11.0)
[2020-11-20 22:57] LABS: PROTHROMBIN TIME PATIENT 13.1 SEC (11.7-14.0)
[2020-11-20] MEDS ORDERED: FAMOTIDINE 20 MG/2 ML VIAL IVP ONE (23:00)
[2020-11-20] MEDS ORDERED: ASPIRIN 325 MG TABLET PO ONE (23:00)
[2020-11-20 23:01] LABS: CALCIUM 9.1 mg/dL (8.5-10.1); CREATININE 1.1 mg/dL (0.7-1.3); GFR 80.8; POTASSIUM 3.7 mmol/L (3.5-5.1)
[2020-11-20 23:06] LABS: ALBUMIN 3.9 g/dL (3.4-5.0); MAGNESIUM 2.2 mg/dL (1.8-2.4); TOTAL BILIRUBIN 0.5 mg/dL (0.2-1.0); TOTAL PROTEIN 7.9 g/dL (6.4-8.2)
[2020-11-20] MEDS ORDERED: ONDANSETRON PF 4 MG/2 ML VIAL. IV PRN (23:30)
[2020-11-20] MEDS ORDERED: MORPHINE SULFATE 4 MG/ML VIAL. IV PRN (23:30)
--- NOTE | 2020-11-20 23:31 | RAD ---
CT HEAD INDICATION: Reason: headache dizziness / Spl. Instructions: / History: COMPARISON: 05/20/2020. Exposure: One or more of the following individualized dose reduction techniques were utilized for thi s examination: 1. Automated exposure control 2. Adjustment of the mA and/or kV according to patient size 3. Use of iterative reconstruction technique TECHNIQUE: 5 mm contiguous axial images were obtained from the skull base to the vertex in both bone and soft tissue algorithm. FINDINGS: No abnormal attenuation within the brain parenchyma. No evidence of acute intracranial hemorrhage. No extra-axial fluid collections. No mass effect or midline shift. Ventricular size is appropriate. Basal cisterns are patent. No fractures identified.Gonzalez-white differentiation is preserved.Globes and orbits are within normal l imits. Paranasal sinuses and mastoid air cells are clear. IMPRESSION: Unremarkable CT examination of the head without contrast, as above. Specifically, no evidence of an acute intracranial abnormality. Electronically signed by: Beck Guadalupe MD (11/20/2020 11:19 PM) [id number]
--- NOTE | 2020-11-20 23:43 | RAD ---
EXAM: CHEST 1 VIEW History: Chest pain COMPARISON: None available. TECHNIQUE: Single portable radiograph of the chest FINDINGS: The cardiac silhouette is unremarkable. The lungs are clear bilaterally. The costophrenic sulci are clear and well demarcated. IMPRESSION: No radiographic evidence of an acute cardiopulmonary process. Electronically signed by: Beck Guadalupe MD (11/20/2020 11:41 PM) [id number]
[2020-11-21] VITALS (7 sets, daily range): BP systolic 140–175; BP diastolic 78–98
--- NOTE | 2020-11-21 01:11 | NUR ---
Pt arrived to unit per wheelchair, pt ambulated to bed pt oriented to surroundings and call light. Vs obtained tele monitor applied assessment completed pt denied pain at this time will resume care and continue to monitor pt.
[2020-11-21] MEDS ORDERED: DEXL60CA2 PO (01:21)
[2020-11-21] MEDS ORDERED: ACET500T33 PO (01:21)
--- NOTE | 2020-11-21 08:59 | PDOC1 ---
History and Physical Date of Admission Date of Admission 11/21/2020 Identification/Chief Complaint Chief Complaint Chest pain History of Present Illness History of Present Illness Mr. Connell is a 65-year-old gentleman with past medical history of congestive heart failure coronary artery disease status post PCI and stenting please see below in this report for details. He was in his usual state of health until 1 day prior to his admission when he started complaining of chest discomfort. Past Medical History Cardiovascular: CAD, CHF, HTN, Mitral valve stenosis, Valve insufficiency, Pulmonary hypertension Pulmonary: Other CENTRAL NERVOUS SYSTEM: Other GI: GERD, Other Heme/Onc: No pertinent hx Hepatobiliary: No pertinent hx Psych: No pertinent hx Infectious disease: No pertinent hx Renal/: Benign prostatic enlarg. Endocrine: Diabetes Past Surgical History Past Surgical History: Other Family History Family History: Coronary Artery Disease Social History ALCOHOL: occassional Drugs: None Current Problem List Problem List Problems Medical Problems: (1) Dizziness Status: Acute Current Medications Current Medications Current Medications Medications (Trade) Dose Ordered Sig/Stacey Start Time Stop Time Status Last Admin Dose Admin Aspirin (Gutsabo Aspirin) 325 mg 1X ONCE 11/20/20 23:00 11/20/20 23:01 DC 11/20/20 23:01 325 MG Famotidine (Pepcid Vial) 20 mg 1X ONCE 11/20/20 23:00 11/20/20 23:01 DC 11/20/20 23:01 20 MG Morphine Sulfate (Morphine Sulfate) 4 mg PRN Q2HR PRN 11/20/20 23:30 11/21/20 23:29 Nitroglycerin (Nitrostat) 0.4 mg PRN Q5MIN PRN 11/20/20 23:30 11/21/20 23:29 Ondansetron HCl (Zofran) 4 mg PRN Q8HRS PRN 11/20/20 23:30 11/21/20 23:29 Allergies Allergies Allergies Coded Allergies Type Severity Reaction Last Updated Verified No Known Drug Allergies 05/20/20 No ROS Review of System CONSTITUTIONAL: No fever or chills EYES: No recent changes SKIN: No rash or itching CARDIOVASCULAR: No chest pain, syncope, palpitations, or edema RESPIRATORY: No SOB or cough GASTROINTESTINAL: No nausea, vomiting or abdominal pain NEUROLOGICAL: No headaches or weakness ENDOCRINE: No cold or heat intolerance GENITOURINARY: No urgency or frequency of urination MUSCULOSKELETAL: No back pain or joint pain LYMPHATICS: No enlarged lymph nodes PSYCHIATRIC: No anxiety or depression Physical Exam Physical Exam GEN.: No apparent distress. Alert and oriented. HEENT: Head is normocephalic, atraumatic NECK: Supple. LUNGS: Clear to auscultation. HEART: RRR, S1, S2 present. Peripheral pulses intact ABDOMEN: Soft, nontender. Positive bowel sounds. EXTREMITIES: Without any cyanosis. NEUROLOGIC: Normal speech, normal tone PSYCHIATRIC: Normal affect, normal mood. SKIN: No ulcerations Vitals Vitals Vital Signs Date Time Temp Pulse Resp B/P (MAP) Pulse Ox O2 Delivery O2 Flow Rate FiO2 11/21/20 07:00 98.5 57 18 140/98 (112) 99 Room Air 98.5 Labs Labs Laboratory Tests Test 11/20/20 22:38 11/21/20 01:30 11/21/20 08:09 White Blood Count 8.7 x10^3/uL (4.0-11.0) Red Blood Count 4.62 x10^6/uL (4.30-5.70) Hemoglobin 13.9 g/dL (13.0-17.5) Hematocrit 41.2 % (39.0-53.0) Mean Corpuscular Volume 89 fL (79-100) Mean Corpuscular Hemoglobin 30 pg (25-35) Mean Corpuscular Hemoglobin Concent 34 g/dL (31-37) Red Cell Distribution Width 13.4 % (11.5-14.5) Platelet Count 145 x10^3/uL (140-400) Neutrophils (%) (Auto) 62 % (31-73) Lymphocytes (%) (Auto) 24 % (24-48) Monocytes (%) (Auto) 7 % (0-9) Eosinophils (%) (Auto) 6 % (0-3) Basophils (%) (Auto) 1 % (0-3) Neutrophils # (Auto) 5.4 x10^3/uL (1.8-7.7) Lymphocytes # (Auto) 2.1 x10^3/uL (1.0-4.8) Monocytes # (Auto) 0.6 x10^3/uL (0.0-1.1) Eosinophils # (Auto) 0.5 x10^3/uL (0.0-0.7) Basophils # (Auto) 0.1 x10^3/uL (0.0-0.2) Prothrombin Time 13.1 SEC (11.7-14.0) Prothromb Time International Ratio 1.0 (0.8-1.1) Activated Partial Thromboplast Time 33 SEC (24-38) Sodium Level 137 mmol/L (136-145) Potassium Level 3.7 mmol/L (3.5-5.1) Chloride Level 104 mmol/L (98-107) Carbon Dioxide Level 26 mmol/L (21-32) Anion Gap 7 (6-14) Blood Urea Nitrogen 11 mg/dL (8-26) Creatinine 1.1 mg/dL (0.7-1.3) Estimated GFR (Cockcroft-Gault) 80.8 BUN/Creatinine Ratio 10 (6-20) Glucose Level 119 mg/dL (70-99) Calcium Level 9.1 mg/dL (8.5-10.1) Magnesium Level 2.2 mg/dL (1.8-2.4) Total Bilirubin 0.5 mg/dL (0.2-1.0) Aspartate Amino Transf (AST/SGOT) 14 U/L (15-37) Alanine Aminotransferase (ALT/SGPT) 29 U/L (16-63) Alkaline Phosphatase 64 U/L (46-116) Troponin I Quantitative < 0.017 ng/mL (0.000-0.055) 0.023 ng/mL (0.000-0.055) 0.026 ng/mL (0.000-0.055) KB-Rob-O-Type Natriuretic Peptide 38 pg/mL (0-124) Total Protein 7.9 g/dL (6.4-8.2) Albumin 3.9 g/dL (3.4-5.0) Albumin/Globulin Ratio 1.0 (1.0-1.7) Lipase 161 U/L (73-393) Thyroid Stimulating Hormone (TSH) 1.997 uIU/mL (0.358-3.74) Laboratory Tests Test 11/20/20 22:38 11/21/20 01:30 11/21/20 08:09 White Blood Count 8.7 x10^3/uL (4.0-11.0) Red Blood Count 4.62 x10^6/uL (4.30-5.70) Hemoglobin 13.9 g/dL (13.0-17.5) Hematocrit 41.2 % (39.0-53.0) Mean Corpuscular Volume 89 fL (79-100) Mean Corpuscular Hemoglobin 30 pg (25-35) Mean Corpuscular Hemoglobin Concent 34 g/dL (31-37) Red Cell Distribution Width 13.4 % (11.5-14.5) Platelet Count 145 x10^3/uL (140-400) Neutrophils (%) (Auto) 62 % (31-73) Lymphocytes (%) (Auto) 24 % (24-48) Monocytes (%) (Auto) 7 % (0-9) Eosinophils (%) (Auto) 6 % (0-3) Basophils (%) (Auto) 1 % (0-3) Neutrophils # (Auto) 5.4 x10^3/uL (1.8-7.7) Lymphocytes # (Auto) 2.1 x10^3/uL (1.0-4.8) Monocytes # (Auto) 0.6 x10^3/uL (0.0-1.1) Eosinophils # (Auto) 0.5 x10^3/uL (0.0-0.7) Basophils # (Auto) 0.1 x10^3/uL (0.0-0.2) Prothrombin Time 13.1 SEC (11.7-14.0) Prothromb Time International Ratio 1.0 (0.8-1.1) Activated Partial Thromboplast Time 33 SEC (24-38) Sodium Level 137 mmol/L (136-145) Potassium Level 3.7 mmol/L (3.5-5.1) Chloride Level 104 mmol/L (98-107) Carbon Dioxide Level 26 mmol/L (21-32) Anion Gap 7 (6-14) Blood Urea Nitrogen 11 mg/dL (8-26) Creatinine 1.1 mg/dL (0.7-1.3) Estimated GFR (Cockcroft-Gault) 80.8 BUN/Creatinine Ratio 10 (6-20) Glucose Level 119 mg/dL (70-99) Calcium Level 9.1 mg/dL (8.5-10.1) Magnesium Level 2.2 mg/dL (1.8-2.4) Total Bilirubin 0.5 mg/dL (0.2-1.0) Aspartate Amino Transf (AST/SGOT) 14 U/L (15-37) Alanine Aminotransferase (ALT/SGPT) 29 U/L (16-63) Alkaline Phosphatase 64 U/L (46-116) Troponin I Quantitative < 0.017 ng/mL (0.000-0.055) 0.023 ng/mL (0.000-0.055) 0.026 ng/mL (0.000-0.055) NU-Uvb-A-Type Natriuretic Peptide 38 pg/mL (0-124) Total Protein 7.9 g/dL (6.4-8.2) Albumin 3.9 g/dL (3.4-5.0) Albumin/Globulin Ratio 1.0 (1.0-1.7) Lipase 161 U/L (73-393) Thyroid Stimulating Hormone (TSH) 1.997 uIU/mL (0.358-3.74) Images Images STRESS TEST STRESS TEST Conclusion 1. Regadenoson cardioisotope stress test did not show any evidence of ischemia or infarct. 2. Normal left ventricular systolic function with ejection fraction calculated at 54%. 3. Low risk for cardiac events. DATE: 04/17/18 1508 HEART CATH HEART CATH Conclusion 1. One-vessel coronary artery disease involving the first obtuse marginal vessel successfully treated with 2 overlapping Xience drug eluting stents (3.25 x 28 mm and 3.5 x 15 mm). Recommendations ASA 81 mg daily Prasugrel 10mg daily for 1 year, prefer lifetime DAPT with plavix after 1 year if tolerated. Cardiac rehab and aggressive medical therapy. Final recommendations per Dr. Mao Sparks DATE: 04/24/17 1354 VTE Prophylaxis Ordered VTE Prophylaxis Devices: Yes VTE Pharmacological Prophylaxi: Yes Assessment/Plan Assessment/Plan ASSESSMENT/PLAN ASSESSMENT/PLAN 1. Atypical chest pain: Similar presentation in July which was attributed to GERD exacerbation cardiac enzymes negative 2. HTN urgency 3. HLP 4. CAD; past stents 5. DM2 6. ROSITA: CPAP compliant 7. GERD exacerbation Justifications for Admission Other Justification KATTY NAVA MD Nov 21, 2020 08:59
[2020-11-21] MEDS ORDERED: ACETAMINOPHEN 500 MG TABLET PO PRN (10:30)
--- NOTE | 2020-11-21 11:13 | PDOC2 ---
CARDIOLOGY CONSULT NOTE DATE OF SERVICE: DATE: 11/21/20 TIME: 11:15 CHIEF COMPLAINT: Chest pain HPI: 65 y.o male presenting with chest pain that is persistent and mostly at night similar to his prior chest pain symptoms that prompted PCI. He had similar presentation in 08/01 and at that time he had normal echo and enzymes and despite PPI has not had any significant improvement. No syncope or palpitations. No significant dyspnea. PMHX: CAD HTN DLP SOCHX: Occ alcohol use. He is retired. FAMHX: NC CURRENT MEDS: Current Medications Medications (Trade) Dose Ordered Sig/Stacey Route PRN Reason Start Time Stop Time Status Last Admin Dose Admin Aspirin (Gustabo Aspirin) 325 mg 1X ONCE PO 11/20/20 23:00 11/20/20 23:01 DC 11/20/20 23:01 Famotidine (Pepcid Vial) 20 mg 1X ONCE IVP 11/20/20 23:00 11/20/20 23:01 DC 11/20/20 23:01 ALLERGIES: Allergies Coded Allergies Type Severity Reaction Last Updated Verified No Known Drug Allergies 05/20/20 No ROS: Negative for 08/25 systems reviewed unless noted above in HPI PHYSICAL EXAM: Vital Signs/I&O: Vital Signs Date Time Temp Pulse Resp B/P (MAP) Pulse Ox O2 Delivery O2 Flow Rate FiO2 11/21/20 10:57 97.9 54 16 158/78 (104) 98 Room Air 97.9 I & O 11/20/20 11/20/20 11/21/20 14:55 22:55 06:55 Intake Total 0 ml Balance 0 ml Physical Exam: GEN.: No apparent distress. Alert and oriented. HEENT: Head is normocephalic, atraumatic NECK: Supple. LUNGS: Clear to auscultation. HEART: RRR, S1, S2 present. Peripheral pulses intact ABDOMEN: Soft, nontender. Positive bowel sounds. EXTREMITIES: Without any cyanosis. NEUROLOGIC: Normal speech, normal tone PSYCHIATRIC: Normal affect, normal mood. SKIN: No ulcerations DIAGNOSTIC TESTING: EKG unremarkable. Trops neg Lab Laboratory Tests Test 11/20/20 22:38 White Blood Count 8.7 x10^3/uL (4.0-11.0) Red Blood Count 4.62 x10^6/uL (4.30-5.70) Hemoglobin 13.9 g/dL (13.0-17.5) Hematocrit 41.2 % (39.0-53.0) Mean Corpuscular Volume 89 fL (79-100) Mean Corpuscular Hemoglobin 30 pg (25-35) Mean Corpuscular Hemoglobin Concent 34 g/dL (31-37) Red Cell Distribution Width 13.4 % (11.5-14.5) Platelet Count 145 x10^3/uL (140-400) Neutrophils (%) (Auto) 62 % (31-73) Lymphocytes (%) (Auto) 24 % (24-48) Monocytes (%) (Auto) 7 % (0-9) Eosinophils (%) (Auto) 6 % (0-3) H Basophils (%) (Auto) 1 % (0-3) Neutrophils # (Auto) 5.4 x10^3/uL (1.8-7.7) Lymphocytes # (Auto) 2.1 x10^3/uL (1.0-4.8) Monocytes # (Auto) 0.6 x10^3/uL (0.0-1.1) Eosinophils # (Auto) 0.5 x10^3/uL (0.0-0.7) Basophils # (Auto) 0.1 x10^3/uL (0.0-0.2) Prothrombin Time 13.1 SEC (11.7-14.0) Prothromb Time International Ratio 1.0 (0.8-1.1) Activated Partial Thromboplast Time 33 SEC (24-38) Sodium Level 137 mmol/L (136-145) Potassium Level 3.7 mmol/L (3.5-5.1) Chloride Level 104 mmol/L (98-107) Carbon Dioxide Level 26 mmol/L (21-32) Anion Gap 7 (6-14) Blood Urea Nitrogen 11 mg/dL (8-26) Creatinine 1.1 mg/dL (0.7-1.3) Estimated GFR (Cockcroft-Gault) 80.8 BUN/Creatinine Ratio 10 (6-20) Glucose Level 119 mg/dL (70-99) H Calcium Level 9.1 mg/dL (8.5-10.1) Total Bilirubin 0.5 mg/dL (0.2-1.0) Aspartate Amino Transf (AST/SGOT) 14 U/L (15-37) L Alkaline Phosphatase 64 U/L (46-116) Total Protein 7.9 g/dL (6.4-8.2) Albumin 3.9 g/dL (3.4-5.0) Albumin/Globulin Ratio 1.0 (1.0-1.7) Lipase 161 U/L (73-393) Thyroid Stimulating Hormone (TSH) 1.997 uIU/mL (0.358-3.74) Laboratory Tests 11/20/20 22:38 ASSESSMENT: 1. Unstable angina. - recurrent chest pain withink 6 months, no clear etiology yet found. PLAN: 1. PLan for [facility] in a.. Discussed r/b/a and patient agreeable to proceed. Thanks. BATSHEVA GOLDMAN MD Nov 21, 2020 11:13
[2020-11-21] MEDS: POTASSIUM CHLORIDE 20 MEQ TABLET.ER. PO SCH (11:47)
[2020-11-21] MEDS: ASPIRIN CHEWABLE 81 MG TABLET. PO SCH (11:47)
[2020-11-21] MEDS: FUROSEMIDE 40 MG TABLET. PO SCH (11:47)
[2020-11-21] MEDS: PANTOPRAZOLE 40 MG TABLET.DR. PO SCH (11:48)
--- NOTE | 2020-11-21 11:50 | EKG ---
[facility] [address] [place] [address] Test Date: 2020-11-20 Test Time: 22:23:15 Pat Name: KEYON GREEN Department: Room: Gender: M Grouter Helper: : 1955 Requested By: ELSA HARDWICK Order Number: [id number] Reading MD: Measurements Intervals [place] Rate: 69 P: 56 IA: 154 QRS: 41 QRSD: 76 T: 11 QT: 390 QTc: 419 Interpretive Statements SINUS RHYTHM ATRIAL PREMATURE COMPLEX(ES) OTHERWISE NORMAL ECG RI6.02 No previous ECG available for comparison
[2020-11-21] MEDS ORDERED: FAMOTIDINE 20 MG/2 ML VIAL IVP PRN (15:30)
[2020-11-21] MEDS ORDERED: SIMETHICONE 80 MG TAB.CHEW PO PRN (15:30)
[2020-11-21] MEDS ORDERED: ENOXAPARIN 40 MG/0.4 ML SYRINGE. SQ SCH (20:00)
[2020-11-21] MEDS ORDERED: TAMSULOSIN 0.4 MG CAP.ER.24H. PO SCH (21:00)
[2020-11-21] MEDS ORDERED: ATORVASTATIN CALCIUM 40 MG TABLET. PO SCH (21:00)
[2020-11-22] VITALS (14 sets, daily range): BP systolic 144–179; BP diastolic 72–86
[2020-11-22] MEDS ORDERED: LIDOCAINE 1% PF 2 ML VIAL. ONE (07:58)
[2020-11-22] MEDS ORDERED: HEPARIN for ARTERIAL LINE 1,500 ML ONE (07:58)
[2020-11-22] MEDS ORDERED: IODIXANOL 320 MG/ML 100 ML VIAL. ONE (07:58)
[2020-11-22] MEDS ORDERED: NITROGLYCERIN 200 MCG/2 ML SYRINGE FOR CATH/VASC LAB. ONE (08:13)
[2020-11-22] MEDS ORDERED: VERAPAMIL 5 MG/2 ML VIAL. ONE (08:13)
[2020-11-22] MEDS ORDERED: HEPARIN for IV BOLUS 10,000 UNIT/10 ML VIAL. ONE (08:13)
[2020-11-22] MEDS ORDERED: MIDAZOLAM HCL/PF 2 MG/2 ML VIAL. ONE (08:13)
[2020-11-22] MEDS ORDERED: fentaNYL PF VIAL 100 MCG/2 ML VIAL ONE (08:13)
--- NOTE | 2020-11-22 08:20 | PDOC ---
MODERATE SEDATION ASSESSMENT RISKS/ALTERNATIVES Risks/Alternatives Risks and alternatives of this type of sedation and procedure discussed with: RISK/ALTERNATIVES: Patient H & P ON CHART H & P H & P on chart and reviewed for co-morbid conditions and appropriate labs. H&P ON CHART: Yes STATUS PREG STATUS ASSESSED: N/A MEDS/ALLERGIES REVIEWED Meds/Allergies Reviewed Medications and Allergies including time and route of recently administered narcotics and sedatives. MEDS/ALLERGIES REVIEWED: Yes ASA RATING ASA RATING: II AIRWAY ASSESSMENT Airway Assessment Airway patency, oral function limitations, presence of caps, crowns, dentures, partials, and ability to extend neck assessed. AIRWAY ASSESSMENT: Yes MALLAMPATI SCORE MALLAMPATI SCORE: II PRE-SEDATION ASSESSMENT PRE-SEDATION ASSESSMENT: Yes BATSHEVA GOLDMAN MD Nov 22, 2020 08:20
[2020-11-22] MEDS ORDERED: NITROGLYCERIN 200 MCG/2 ML SYRINGE FOR CATH/VASC LAB. IART ONE (08:30)
[2020-11-22] MEDS ORDERED: HEPARIN for IV BOLUS 10,000 UNIT/10 ML VIAL. IART ONE (08:30)
[2020-11-22] MEDS ORDERED: MIDAZOLAM HCL/PF 2 MG/2 ML VIAL. IV ONE (08:30)
[2020-11-22] MEDS ORDERED: IODIXANOL 320 MG/ML 100 ML VIAL. IART ONE (08:30)
[2020-11-22] MEDS ORDERED: LIDOCAINE 1% PF 2 ML VIAL. INJ ONE (08:30)
[2020-11-22] MEDS ORDERED: VERAPAMIL 5 MG/2 ML VIAL. IART ONE (08:30)
[2020-11-22] MEDS ORDERED: fentaNYL PF VIAL 100 MCG/2 ML VIAL IV ONE (08:30)
--- NOTE | 2020-11-22 08:43 | PDOC4 ---
BRIEF OPERATIVE NOTE Pre-Op Diagnosis Unstable angina Post-Op Diagnosis Same Procedure Performed Coronary angiography Surgeon chris BHARDWAJ 10ml Anesthesiologist none Anesthesia Type: Conscious Sedation Specimens Obtained None Findings Patent Om1 stents, no new changes compared to 2017 Complications None BATSHEVA GOLDMAN MD Nov 22, 2020 08:43
[2020-11-22] MEDS ORDERED: CONTRAST GIVEN. MC PRN (09:00)
[2020-11-22] MEDS: ASPIRIN CHEWABLE 81 MG TABLET. PO SCH (09:33)
[2020-11-22] MEDS: FUROSEMIDE 40 MG TABLET. PO SCH (09:34)
[2020-11-22] MEDS: POTASSIUM CHLORIDE 20 MEQ TABLET.ER. PO SCH (09:34)
[2020-11-22] MEDS: PANTOPRAZOLE 40 MG TABLET.DR. PO SCH (09:35)
[2020-11-22] MEDS ORDERED: LISINOPRIL 20 MG TABLET PO ONE (16:00)
--- NOTE | 2020-11-22 16:18 | NUR ---
SS following for discharge planning. SS reviewed pt chart and discussed with pt RN. Pt is from home and is currently on room air. COVID19 negative. Pt had heart cath today. SS will continue to follow for discharge planning.
[2020-11-22] MEDS ORDERED: LISI20TA18 PO (16:54)
--- NOTE | 2020-11-22 17:00 | NUR ---
Discharge Note: KEYON GREEN Discharge instructions and discharge home medications reviewed with Patient and a copy given. All questions have been answered and understanding verbalized. The following instructions and handouts were given: cardiac diet and post heart cath dc teaching. Discontinued lines iv and catheter intact. Patient discharged to home with self-care.
[2020-11-23] MEDS ORDERED: LISINOPRIL 20 MG TABLET PO SCH (09:00)
--- NOTE | 2020-11-23 10:16 | CARD ---
MR#: [id number] Date of Study: 11/22/2020 Ordering Physician: BATSHEVA ROGER, Referring Physician: BATSHEVA ROGER, Tech: Geena Esqueda APPROVED REPORT Technologist: Geena Esqueda Nurse: Rosalind Borrero RN Procedure(s) performed: fl time: 2.0 mins dose: 58 gycm2 contrast: 58 ml Moderate sedation: 26 mins Coronary angiography HISTORY : The patient is a 65 year-old male with a history of . [facility] Clinical Frailty Scale [facility] Clinical Frailty Scale: Managing Well Heart Failure Heart Failure: Yes If Yes, Newly Diagnosed: No If Yes, HF Type: Diastolic If Yes, NYHA Class: Class II PROCEDURE NARRATIVE Clinical information: 65 y.o male presenting with unstable angina. Informed consent: Written informed consent was obtained from the patient after adequate discussion of the risks and gino efits of the procedure. Procedure details: ACCESS: The right wrist was prepped and draped in usual sterile fashion. Under 1% lidocaine local anesthesia a 6 Chinese Terumo sheath was placed in the right radial artery via the Seldinger technique. DIAGNOSTIC ANGIOGRAPHY: Right and left coronary arteries were engaged with a 6 Chinese TIG catheter. Diagnostic angiography i n multiple views were obtained. All catheters were exchanged over J-tip guidewire. FINDINGS: ======= Aorta: 150/90 Coronary angiography: LM: Large caliber vessel with normal angiographic appearance LAD: Large caliber vessel with mild luminal irregularities. D1: Small caliber vessel with normal angiographic appearance LCX: Moderate caliber non-dominant vessel with mild luminal irregularities OM1: Moderate caliber vessel with patent previously placed overlapping stents. RCA: Large caliber dominant vessel with a mid 40% stenosis. RPDA: Moderate caliber vessel with mild luminal irregularities. CLOSURE: At case completion the right radial sheath was removed and a Terumo radial band was applied with 11 m L of air. Hemostasis was achieved. COMPLICATIONS: No acute complications noted Conclusion 1. One vessel CAD with patent OM1 stents. No signficant change compared to 2017. Recommendations Aggressive Medical Therapy Signed by : Batsheva Roger, Electronically Approved : 11/22/2020 10:42:27
== END 2020-11-22 17:15 | disposition home or self-care (01) | DRG 287 ==
LOC: ER 23:28 → 2 SOUTH 23:46
PROVIDERS: ADMIT Internal Medicine; ATTEND Internal Medicine
PROC: B2111ZZ Fluoroscopy of Multiple Coronary Arteries using Low Osmolar Contrast (ICD-10-PCS; principal; 2020-11-22)
DX: I25.110 Atherosclerotic heart disease of native coronary artery with unstable angina pectoris (principal); I50.30 Unspecified diastolic (congestive) heart failure; I16.0 Hypertensive urgency; E11.9 Type 2 diabetes mellitus without complications; E78.00 Pure hypercholesterolemia, unspecified; E78.5 Hyperlipidemia, unspecified; G47.33 Obstructive sleep apnea (adult) (pediatric); I05.0 Rheumatic mitral stenosis; I11.0 Hypertensive heart disease with heart failure; I27.20 Pulmonary hypertension, unspecified; K21.9 Gastro-esophageal reflux disease without esophagitis; N40.1 Benign prostatic hyperplasia with lower urinary tract symptoms; Z20.822 Contact with and (suspected) exposure to COVID-19; Z82.49 Family history of ischemic heart disease and other diseases of the circulatory system; Z87.891 Personal history of nicotine dependence; Z95.5 Presence of coronary angioplasty implant and graft
CPT/HCPCS: 36415; 70450; 71045; 80053; 83690; 83735; 83880; 84443; 84484; 85025; 85610; 85730; 87426; 93005; 93454; 96374; 99152; 99153; C1769; C1892; J1644; J1650; J2250; J3010; J3490; Q9967; U0003; 99285-25; G0378

== ENCOUNTER 2020-12-06 00:59 | Emergency (ER) | payer MEDICARE ==
[~2020-12-06] VITALS: Ht 172.7 cm; Wt 105.0 kg
[~2020-12-06 00:59] MED LIST changes: +ACET500T33 PO; +LISI20TA18 PO
[2020-12-06] MEDS ORDERED: IBUPROFEN 400 MG TABLET. PO ONE (03:45)
[2020-12-06] MEDS ORDERED: ACETAMINOPHEN 500 MG TABLET PO ONE (03:45)
--- NOTE | 2020-12-06 03:50 | PHYS DOC ---
Past Medical History Past Medical History: Hypertension Additional Past Medical Histor: urinary retention, SLEEP APNEA, GOUT, BPH, Past Surgical History: Other Additional Past Surgical Histo: cardiac cath Smoking Status: Never Smoker Alcohol Use: Occasionally Drug Use: None Adult General Chief Complaint Chief Complaint: HEADACHE HPI HPI Patient is a 65 year old male with a known past medical history of hypertension, CHF, CAD with stents, hyperlipidemia, diabetes presenting to the emergency department complaint of new onset of headache. Patient states that over the last 2 weeks he has had having an issue every time he lays down at night he gets a sensation of a left frontal headache. Of note the patient was seen and evaluated here approximately 2 weeks ago where he underwent a full cardiac work-up due to concern for hypertensive emergency and was found to be negative. States that since that time has been feeling better but he still having sensation of headache whenever he goes to bed. Denies any associated dizziness, lightheadedness, fever or chills. Denies any numbness or weakness or vision changes. Review of Systems Review of Systems Constitutional: Denies fever or chills [] Eyes: Denies change in visual acuity, redness, or eye pain [] HENT: Denies nasal congestion or sore throat [] Respiratory: Denies cough or shortness of breath [] Cardiovascular: No additional information not addressed in HPI [] GI: Denies abdominal pain, nausea, vomiting, bloody stools or diarrhea [] : Denies dysuria or hematuria [] Musculoskeletal: Denies back pain or joint pain [] Integument: Denies rash or skin lesions [] Neurologic: Denies headache, focal weakness or sensory changes [] Endocrine: Denies polyuria or polydipsia [] All other systems were reviewed and found to be within normal limits, except as documented in this note. Current Medications Current Medications Current Medications Medications (Trade) Dose Ordered Sig/Stacey Start Time Stop Time Status Last Admin Dose Admin Acetaminophen (Tylenol) 1,000 mg 1X ONCE 12/06/20 03:45 12/06/20 03:46 DC 12/06/20 04:29 1,000 MG Amlodipine Besylate (Norvasc) 5 mg 1X ONCE 12/06/20 01:30 12/06/20 01:31 DC 12/06/20 02:00 5 MG Ibuprofen (Motrin) 800 mg 1X ONCE 12/06/20 03:45 12/06/20 03:46 DC 12/06/20 04:29 800 MG Ondansetron HCl (Zofran Odt) 4 mg 1X ONCE 12/06/20 05:00 12/06/20 05:01 DC 12/06/20 05:06 4 MG Allergies Allergies Allergies Coded Allergies Type Severity Reaction Last Updated Verified No Known Drug Allergies 05/20/20 No Physical Exam Physical Exam Constitutional: Well developed, well nourished, no acute distress, non-toxic appearance. [] HENT: Normocephalic, atraumatic, bilateral external ears normal, oropharynx mois t, no oral exudates, nose normal. [] Eyes: PERRLA, EOMI, conjunctiva normal, no discharge. [] Neck: Normal range of motion, no tenderness, supple, no stridor. [] Cardiovascular:Heart rate regular rhythm, no murmur [] Lungs & Thorax: Bilateral breath sounds clear to auscultation [] Abdomen: Bowel sounds normal, soft, no tenderness, no masses, no pulsatile masses. [] Skin: Warm, dry, no erythema, no rash. [] Back: No tenderness, no CVA tenderness. [] Extremities: No tenderness, no cyanosis, no clubbing, ROM intact, no edema. [] Neurologic: Alert and oriented X 3, normal motor function, normal sensory function, no focal deficits noted. [] Psychologic: Affect normal, judgement normal, mood normal. [] Current Patient Data Vital Signs Vital Signs Date Time Temp Pulse Resp B/P (MAP) Pulse Ox O2 Delivery O2 Flow Rate FiO2 12/06/20 02:01 59 18 100 12/06/20 02:00 145/82 12/06/20 01:10 98.1 Room Air 98.1 EKG EKG [] Radiology/Procedures Radiology/Procedures [] Course & Med Decision Making Course & Med Decision Making Pertinent Labs and Imaging studies reviewed. (See chart for details) 65M presenting with new onset of headaches there is some concern for hypertensive emergency however this is likely just secondary to sinus headache. Will monitor for changes and treat symptomatically and reevaluate. Symptoms imrpoved. HTN improved. Will discharge home. I spoken with the patient and her caregivers. I explained the patient's condition, diagnoses and treatment plan based on the information available to me at this time. I have answered the patient and her caregiver's questions and addressed any concerns. The patient and her caregivers have a good understanding of patient's diagnosis, condition and treatment plan as can be expected at this point. Vital signs have been stable. Patient's condition is stable and appropriate for discharge from the emergency department. Patient will pursue further outpatient evaluation with primary care physician or other designated or consulting physician as outlined in the discharge ins tructions. The patient and/or caregivers are agreeable to this plan of care and follow-up instructions have been explained in detail. The patient and/or caregivers have received these instructions in written form and have expressed an understanding of the discharge instructions. The patient and/or caregivers are aware that any significant change of condition or worsening of symptoms should prompt immediate return to this or the closest emergency department or call to 911. Elais Disclaimer Dragon Disclaimer This electronic medical record was generated, in whole or in part, using a voice recognition dictation system. Departure Departure Impression: Primary Impression: Hypertension Disposition: 01 DC HOME SELF CARE/HOMELESS Condition: GOOD Referrals: IGOR BRUNO MD (PCP) Patient Instructions: Hypertension Additional Instructions: EMERGENCY DEPARTMENT GENERAL DISCHARGE INSTRUCTIONS Thank you for coming to [facility] Emergency Department (ED) today and trusting us with you care. We trust that you had a positive experience in our Emergency Department. If you wish to speak to the department management, you may call the Director at [phone]. YOUR FOLLOW UP INSTRUCTIONS ARE FOLLOWS: 1. Do you have a private Doctor? If you do not have a private doctor, please ask for a resource list of physicians or clinics that may be able to assist you with follow up care. 2. The Emergency Physicain has interpreted your x-rays. The X-Ray specialist will also review them. If there is a change in the findings, you will be notified in 48 hours when at all possible. 3. A lab test or culture has been done, your results will be reviewed and you will be notified if you need a change in treatment. ADDITIONAL INSTRUCTIONS AND INFORMATION: 1. Your care today has been supervised by a physician who is specially trained in emergency care. Many problems require more than one evaluation for a complete diagnosis and treatment. We recommend that you schedule your follow up appointment as recommended to ensure complete treatment of you illness or injury. If you are unable to obtain follow up care and continue to have a problem, or if your condition worsens, we recommend that you return to the ED. 2. We are not able to safely determine your condition over the phone nor are we able to give sound medical advice over the phone. For these safety reasons, if you call for medical advice we will ask you to come to the ED for further evaluation. 3. If you have any questions regarding these discharge instructions please call the ED at [phone]. SAFETY INFORMATION: In the interest of safety, wellness, and injury prevention; we encourage you to wear your sealbelt, if you smoke; quite smoking, and we encourage family to use a protective helmet for bicycling and other sporting events that present an increased risk for head injury. IF YOUR SYMPTOMS WORSEN OR NEW SYMPTOMS DEVELOP, OR YOU HAVE CONCERNS ABOUT YOUR CONDITION; OR IF YOUR CONDITION WORSENS WHILE YOU ARE WAITING FOR YOUR FOLLOW UP APPOINTMENT; EITHER CONTACT YOUR PRIMARY CARE DOCTOR, THE PHYSICIAN WHOSE NAME AND NUMBER YOU WERE GIVEN, OR RETURN TO THE ED IMMEDIATELY. GENARO GRAYSON MD Dec 06, 2020 03:50
[2020-12-06] MEDS ORDERED: ONDANSETRON ODT 4 MG TAB.RAPDIS. PO ONE (05:00)
[2020-12-06 05:36] VITALS: BP 140/67
== END 2020-12-06 05:50 | disposition home or self-care (01) ==
LOC: ER 00:59
DX: I11.0 Hypertensive heart disease with heart failure (principal); I50.9 Heart failure, unspecified; R51.9 Headache, unspecified; R20.2 Paresthesia of skin; Z98.890 Other specified postprocedural states
CPT/HCPCS: 99285

== ENCOUNTER 2020-12-19 13:30 | Observation (INO) | payer MEDICARE ==
[~2020-12-19] VITALS: Ht 172.7 cm; Wt 105.6 kg
[2020-12-19 13:59] LABS: BILIRUBIN,URINE NEGATIVE (NEG); CLARITY,URINE CLEAR; COLOR,URINE YELLOW; NITRITE,URINE NEGATIVE (NEG); PH,URINE 5.5 (<5.0-8.0); PROTEIN,URINE NEGATIVE (NEG-TRACE)
[2020-12-19] MEDS ORDERED: FAMOTIDINE 20 MG TABLET. PO ONE (14:00)
[2020-12-19] MEDS ORDERED: LIDO:MAALOX 1:1 20 ML SINGLE DOSE. SWSW ONE (14:00)
[2020-12-19 14:09] LABS: BACTERIA,URINE FEW /HPF (0-FEW)
--- NOTE | 2020-12-19 14:14 | PHYS DOC ---
Past Medical History Past Medical History: Hypertension Additional Past Medical Histor: urinary retention, SLEEP APNEA, GOUT, BPH, Past Surgical History: Other Additional Past Surgical Histo: cardiac cath Smoking Status: Never Smoker Alcohol Use: Occasionally Drug Use: None General Adult EDM: Chief Complaint: FLANK PAIN HPI: HPI: Patient is a 65 year old male who presented to ER due to epigastric abdominal pain and left flank pain started last night. Patient has had left side abdominal pain , epigastric abdominal pain , radiating to his back off and on for a year. Symptoms started again last night, became more severe this morning. Patient denies any chest pain, no cough, no fever. Patient denies any urinary frequency or urgency, no blood in his urine. Patient denies any diarrhea, no vomiting blood. Patient said the pain radiating to his back. Review of Systems: Review of Systems: Constitutional: Denies fever or chills. [] Eyes: Denies change in visual acuity. [] HENT: Denies nasal congestion or sore throat. [] Respiratory: Denies cough or shortness of breath. [] Cardiovascular: Denies chest pain or edema. [] GI: Positive for epigastric abdominal pain, left flank pain, no nausea vomiting, no diarrhea. : Denies dysuria. [] Musculoskeletal: Denies back pain or joint pain. [] Integument: Denies rash. [] Neurologic: Denies headache, focal weakness or sensory changes. [] Endocrine: Denies polyuria or polydipsia. [] Lymphatic: Denies swollen glands. [] Psychiatric: Denies depression or anxiety. [] Heart Score: Risk Factors: Risk Factors: DM, Current or recent (<one month) smoker, HTN, HLP, family history of CAD, obesity. Risk Scores: Score 0 - 3: 2.5% MACE over next 6 weeks - Discharge Home Score 4 - 6: 20.3% MACE over next 6 weeks - Admit for Clinical Observation Score 7 - 10: 72.7% MACE over next 6 weeks - Early Invasive Strategies Current Medications: Current Medications Medications (Trade) Dose Ordered Sig/Stacey Start Time Stop Time Status Last Admin Dose Admin Famotidine (Pepcid) 20 mg 1X ONCE 12/19/20 14:00 12/19/20 14:01 DC Multi-Ingredient Mouthwash/Gargle (Gi Cocktail) 20 ml 1X ONCE 12/19/20 14:00 2/7/21 14:01 LA Allergies: Allergies: Allergies Coded Allergies Type Severity Reaction Last Updated Verified No Known Drug Allergies 05/20/20 No Physical Exam: PE: Constitutional: Well developed, well nourished, no acute distress, non-toxic appearance. [] HENT: Normocephalic, atraumatic, bilateral external ears normal, oropharynx moist, no oral exudates, nose normal. [] Eyes: PERRLA, EOMI, conjunctiva normal, no discharge. [] Neck: Normal range of motion, no tenderness, supple, no stridor. [] Cardiovascular:Heart rate regular rhythm, no murmur [] Lungs & Thorax: Bilateral breath sounds clear to auscultation [] Abdomen: Bowel sounds normal, soft, epigastric tenderness to palpation, RUQ tenderness to palpation, no masses, no pulsatile masses. [] Skin: Warm, dry, no erythema, no rash. [] Back: No tenderness, bilateral CVA tender to palpation Extremities: No tenderness, no cyanosis, no clubbing, ROM intact, no edema. [] Neurologic: Alert and oriented X 3, normal motor function, normal sensory function, no focal deficits noted. [] Psychologic: Affect normal, judgement normal, mood normal. [] Current Patient Data: Labs: Laboratory Tests Test 12/19/20 13:32 Urine Collection Type Unknown Urine Color Yellow Urine Clarity Clear Urine pH 5.5 (<5.0-8.0) Urine Specific [place] 1.015 (1.000-1.030) Urine Protein Negative mg/dL (NEG-TRACE) Urine Glucose (UA) Negative mg/dL (NEG) Urine Ketones (Stick) Negative mg/dL (NEG) Urine Blood Negative (NEG) Urine Nitrite Negative (NEG) Urine Bilirubin Negative (NEG) Urine Urobilinogen Dipstick 1.0 mg/dL (0.2 mg/dL) Urine Leukocyte Esterase Negative (NEG) Urine RBC 1-2 /HPF (0-2) Urine WBC 1-4 /HPF (0-4) Urine Squamous Epithelial Cells Few /LPF Urine Bacteria Few /HPF (0-FEW) Urine Mucus Mod /LPF Vital Signs: Vital Signs Date Time Temp Pulse Resp B/P (MAP) Pulse Ox O2 Delivery O2 Flow Rate FiO2 12/19/20 13:35 98.2 76 18 168/67 (100) 98 Room Air 98.2 EKG: EKG: EKG was done at 1413, heart rate of 64 bpm, sinus rhythm, no ST segment elevation. Radiology/Procedures: Radiology/Procedures: [facility] [address] [place] [address] IMAGING REPORT Signed PATIENT: KEYON GREEN ACCOUNT: [id number] : 1955 LOCATION: ER AGE: 65 SEX: M EXAM STATUS: REG ER ORD. PHYSICIAN: THEO HUSSEIN DO REASON: left side flank pain PROCEDURE: CT ABDOMEN PELVIS WO CONTRAST CT abdomen pelvis without contrast. HISTORY: Left-sided flank pain. CT abdomen pelvis was done without contrast. Comparison is made with an old study from December 2019. There is mild scarring or atelectasis in the right lower lobe without other infiltrates. There is a benign nodule along the minor fissure on the left without change from the old study. There is no effusion. A liver lesion is not identified. The gallbladder is distended. There is mild thickening of the gallbladder wall, correlation with ultrasound could be of benefit. Spleen is unremarkable. Adrenal glands are normal. Pancreas is normal in appearance. There is no mass or hydronephrosis or calculus in either kidney. A ureteral calculus is not identified. Bowel pattern is normal. There is moderate stool in the colon. Appendix is normal. Bladder is mildly distended. There is a left disc bulge or protrusion at L4-5 with lateral recess stenosis. IMPRESSION: 1. Distended gallbladder with mild thickening of the gallbladder wall, ultrasound could be of benefit. 2. No renal calculus or hydronephrosis noted. 3. Normal appendix. 4. No abdominal or pelvic mass or other acute finding. 5. No bowel obstruction. PQRS Compliance Statement: One or more of the following individualized dose reduction techniques were ut ilized for this examination: 1. Automated exposure control 2. Adjustment of the mA and/or kV according to patient size 3. Use of iterative reconstruction technique Electronically signed by: Leonid Medina MD (12/19/2020 4:03 PM) [facility] DICTATED and SIGNED BY: LEONID MEDINA MD DATE: 12/19/20 [id number] [facility] [address] [place] [address] IMAGING REPORT Signed PATIENT: KEYON GREEN ACCOUNT: [id number] : 1955 LOCATION: ER AGE: 65 SEX: M EXAM STATUS: REG ER ORD. PHYSICIAN: THEO HUSSEIN DO REASON: EPIGASTRIC ABDOMINAL PAIN, ABNORMAL CT scan of abdomen today PROCEDURE: ABDOMEN LTD Exam: Ultrasound abdomen limited Indication: Epigastric abdominal pain Technique: Real-time grayscale and color Doppler images of the right upper quadrant were obtained by the department auto clocks repairer. Comparisons: CT same day FINDINGS: Liver contour is normal. Increased echogenicity of the liver. Hepatopedal flow noted in the portal vein. Gallbladder is dilated with mild gallbladder wall thickening. Common bile duct measures 5 mm in diameter. Right kidney measures 11.0 cm in length. No hydronephrosis. Visualized portions aorta and IVC are unremarkable. IMPRESSION: 1. Distended gallbladder with adjacent wall thickening. Findings are concerning for acute cholecystitis. HIDA scan can definitively evaluate. 2. Hepatic steatosis. 3. No right-sided hydronephrosis. Electronically signed by: Sherley Rojas MD (12/19/2020 5:05 PM) [facility] DICTATED and SIGNED BY: SHERLEY ROJAS MD DATE: 12/19/20 [id number] 0 Course & Med Decision Making: Course & Med Decision Making Pertinent Labs and Imaging studies reviewed. (See chart for details) Discussed with Dr. Wood, admitted to hospitalist, NPO after midnight, iv ZOSYN Q6 HR, WILL SEE PATIENT IN AM Dragon Disclaimer: Dragon Disclaimer: This electronic medical record was generated, in whole or in part, using a voice recognition dictation system. Departure Departure Impression: Primary Impression: Acute cholecystitis Disposition: ADMITTED INPT THIS HOSP Admitting Physician: DIONI (Dr. Ramos) Condition: STABLE Referrals: IGOR BRUNO MD (PCP) THEO HUSSEIN DO Dec 19, 2020 14:14
[2020-12-19 14:20] LABS: BASO # 0.1 x10^3/uL (0.0-0.2); BASO % 0 % (0-3); EOS # 0.4 x10^3/uL (0.0-0.7); EOS % 3 % (0-3); HEMATOCRIT 42.9 % (39.0-53.0); HEMOGLOBIN 14.2 g/dL (13.0-17.5); LYMPH # 1.1 x10^3/uL (1.0-4.8); LYMPH % 8 % (24-48); MEAN CORPUSCULAR HEMOGLOBIN 30 pg (25-35); MEAN CORPUSCULAR HGB CONC 33 g/dL (31-37); MEAN CORPUSCULAR VOLUME 89 fL (79-100); MONO # 0.9 x10^3/uL (0.0-1.1); MONO % 6 % (0-9); NEUT # 12.2 x10^3/uL (1.8-7.7); NEUT % 83 % (31-73); PLATELET COUNT 156 x10^3/uL (140-400); RED BLOOD COUNT 4.81 x10^6/uL (4.30-5.70); RED CELL DISTRIBUTION WIDTH 12.9 % (11.5-14.5); WHITE BLOOD COUNT 14.7 x10^3/uL (4.0-11.0)
[2020-12-19 14:28] LABS: CALCIUM 9.2 mg/dL (8.5-10.1); CREATININE 1.4 mg/dL (0.7-1.3); GFR 61.2; POTASSIUM 4.1 mmol/L (3.5-5.1)
[2020-12-19 14:34] LABS: ALBUMIN 4.1 g/dL (3.4-5.0); ALBUMIN/GLOBULIN RATIO 0.9 (1.0-1.7); TOTAL BILIRUBIN 0.6 mg/dL (0.2-1.0); TOTAL PROTEIN 8.5 g/dL (6.4-8.2)
--- NOTE | 2020-12-19 16:05 | RAD ---
CT abdomen pelvis without contrast. HISTORY: Left-sided flank pain. CT abdomen pelvis was done without contrast. Comparison is made with an old study from December 2019. There is mild scarring or atelectasis in the right lower lobe without other infiltrates. There is a benign nodule along the minor fissure on the left without change from the old study. There is no effu rizwana. A liver lesion is not identified. The gallbladder is distended. There is mild thickening of the gallbladder wall, correlation with ultrasound could be of benefit. Spleen is unremarkable. Adrenal g lands are normal. Pancreas is normal in appearance. There is no mass or hydronephrosis or calculus in either kidney. A ureteral calculus is not identified. Bowel pattern is normal. There is moderate sto ol in the colon. Appendix is normal. Bladder is mildly distended. There is a left disc bulge or protr usion at L4-5 with lateral recess stenosis. IMPRESSION: 1. Distended gallbladder with mild thickening of the gallbladder wall, ultrasound could be of benefit . 2. No renal calculus or hydronephrosis noted. 3. Normal appendix. 4. No abdominal or pelvic mass or other acute finding. 5. No bowel obstruction. PQRS Compliance Statement: One or more of the following individualized dose reduction techniques were utilized for this examinat ion: 1. Automated exposure control 2. Adjustment of the mA and/or kV according to patient size 3. Use of iterative reconstruction technique Electronically signed by: Leonid Medina MD (12/19/2020 4:03 PM) [facility]
--- NOTE | 2020-12-19 17:07 | RAD ---
Exam: Ultrasound abdomen limited Indication: Epigastric abdominal pain Technique: Real-time grayscale and color Doppler images of the right upper quadrant were obtained by the department online marketing coordinator. Comparisons: CT same day FINDINGS: Liver contour is normal. Increased echogenicity of the liver. Hepatopedal flow noted in the portal ve in. Gallbladder is dilated with mild gallbladder wall thickening. Common bile duct measures [address] Right kidney measures 11.0 cm in length. No hydronephrosis. Visualized portions aorta and IVC are unremarkable. IMPRESSION: 1. Distended gallbladder with adjacent wall thickening. Findings are concerning for acute cholecysti tis. HIDA scan can definitively evaluate. 2. Hepatic steatosis. 3. No right-sided hydronephrosis. Electronically signed by: Sherley Rodriguez MD (12/19/2020 5:05 PM) [facility]
[2020-12-19] MEDS ORDERED: fentaNYL PF VIAL 100 MCG/2 ML VIAL IVP ONE (17:30)
[2020-12-19] MEDS ORDERED: ONDANSETRON PF 4 MG/2 ML VIAL. IVP ONE (17:30)
[2020-12-19] MEDS ORDERED: PIPERACILLIN/TAZOBACTAM 3.375 GM in IV NORMAL SALINE 50ML 50 ML IV ONE (17:30)
[2020-12-19] MEDS ORDERED: ONDANSETRON PF 4 MG/2 ML VIAL. IVP PRN (17:45)
[2020-12-19] MEDS ORDERED: MAGNESIUM HYDROXIDE 2,400 MG/30 ML ORAL.SUSP. PO PRN (17:45)
[2020-12-19] MEDS ORDERED: ACETAMINOPHEN 500 MG TABLET PO PRN (17:45)
[2020-12-19] MEDS ORDERED: BISACODYL 10 MG SUPP.RECT. PR PRN (17:45)
[2020-12-19] MEDS ORDERED: ACETAMINOPHEN 325 MG TABLET. PO PRN (17:45)
[2020-12-19] MEDS ORDERED: PROCHLORPERAZINE 25 MG SUPP.RECT. PR PRN (17:45)
[2020-12-19] MEDS ORDERED: IV RINGERS,LACTATED 1000ML 1,000 ML IV SCH (17:45)
[2020-12-19] MEDS ORDERED: LACTULOSE 20 GM/30 ML SOLUTION. PO PRN (17:45)
[2020-12-19] MEDS ORDERED: ELECTROLYTE (NON-ICU) PROTOCOL. MC PRN (17:45)
[2020-12-19] MEDS ORDERED: ZOLPIDEM 5 MG TABLET. PO PRN (17:45)
--- NOTE | 2020-12-19 17:56 | PDOC1 ---
History and Physical Date of Admission Date of Admission 12/19/2020 Identification/Chief Complaint Chief Complaint abdominal pain Source Source: Chart review, Patient History of Present Illness History of Present Illness Patient is a 65-year-old gentleman with past medical history of hypertension GERD who was in his usual state of health until the morning of admission when he presented severe epigastric pain 10 out of 10 intensity over the epigastric area. The patient also complained of left flank pain with no urinary symptoms no hematuria reported. He was evaluated in the emergency department and found to have a distended gallbladder. Patient is now presenting acute abdomen signs he denies any fever or diaphoresis no recent sick contacts no dietary t ransgressions have been reported. Due to the progressive nature and intensity of his pain he decided to come to the emergency department for evaluation. At the time my evaluation he is in no acute distress he denies any headache no recent upper respiratory tract infection symptoms no chest pain no palpitations no shortness of breath no dyspnea diaphoresis no nausea or vomiting has been reported no diarrhea either. Patient will be admitted for surgical evaluation in the a.m. HPI: Patient is a 65 year old male who presented to ER due to epigastric abdominal pain and left flank pain started last night. Patient has had left side abdominal pain , epigastric abdominal pain , radiating to his back off and on for a year. Symptoms started again last night, became more severe this morning. Patient denies any chest pain, no cough, no fever. Patient denies any urinary frequency or urgency, no blood in his urine. Patient denies any diarrhea, no vomiting blood. Patient said the pain radiating to his back. Past Medical History Cardiovascular: CAD, CHF, HTN, Mitral valve stenosis, Valve insufficiency, Pulmonary hypertension Pulmonary: Other CENTRAL NERVOUS SYSTEM: Other GI: GERD, Other Heme/Onc: No pertinent hx Hepatobiliary: No pertinent hx Psych: No pertinent hx Infectious disease: No pertinent hx Renal/: Benign prostatic enlarg. Endocrine: Diabetes Past Surgical History Past Surgical History: Other Family History Family History: Coronary Artery Disease Social History Smoke: No ALCOHOL: none Drugs: None Current Problem List Problem List Problems Medical Problems: (1) Acute cholecystitis Status: Acute Current Medications Current Medications Current Medications Medications (Trade) Dose Ordered Sig/Stacey Start Time Stop Time Status Last Admin Dose Admin Acetaminophen (Tylenol) 500 mg PRN Q6HRS PRN 12/19/20 17:45 UNV Amlodipine Besylate (Norvasc) 10 mg DAILY 12/20/20 09:00 UNV Aspirin (Aspirin Chewable) 81 mg DAILY 12/20/20 09:00 Bisacodyl (Dulcolax Supp) 10 mg PRN DAILY PRN 12/19/20 17:45 Enoxaparin Sodium (Lovenox 40mg Syringe) 40 mg Q24H 12/19/20 21:00 Famotidine (Pepcid) 20 mg 1X ONCE 12/19/20 14:00 12/19/20 14:01 DC 12/19/20 14:15 20 MG Fentanyl Citrate (Fentanyl 2ml Vial) 50 mcg 1X ONCE 12/19/20 17:30 12/19/20 17:31 DC Furosemide (Lasix) 40 mg DAILY 12/20/20 09:00 Info (Non-Icu Electrolyte Protocol) 1 ea PRN DAILY PRN 12/19/20 17:45 Lactulose (Lactulose) 20 gm PRN Q12HR PRN 12/19/20 17:45 Lisinopril (Prinivil) 20 mg DAILY 12/20/20 09:00 UNV Magnesium Hydroxide (Milk Of Magnesia) 2,400 mg PRN Q12HR PRN 12/19/20 17:45 Morphine Sulfate (Morphine Sulfate) 2 mg PRN Q1HR PRN 12/19/20 17:45 Multi-Ingredient Mouthwash/Gargle (Gi Cocktail) 20 ml 1X ONCE 12/19/20 14:00 12/19/20 14:01 DC 12/19/20 14:15 20 ML Non-Formulary Medication (Atorvastatin Calcium ) 80 mg HS 12/19/20 21:00 UNV Non-Formulary Medication (Dexlansoprazole (Dexilant)) 1 cap DAILY 12/20/20 09:00 UNV Ondansetron HCl (Zofran) 4 mg PRN Q6HRS PRN 12/19/20 17:45 Piperacillin Sod/ Tazobactam Sod 3.375 gm/Sodium Chloride 50 ml @ 100 mls/hr Q6H 12/19/20 17:45 UNV Potassium Chloride (Klor-Con) 20 meq DAILY 12/20/20 09:00 Prochlorperazine (Compazine) 25 mg PRN Q12HR PRN 12/19/20 17:45 Ringer's Solution 1,000 ml @ 100 mls/hr Q10H 12/19/20 17:45 12/20/20 03:44 Senna/Docusate Sodium (Senna Plus) 1 tab BID 12/19/20 21:00 Tamsulosin HCl (Flomax) 0.4 mg HS 12/19/20 21:00 Zolpidem Tartrate (Ambien) 5 mg PRN QHS PRN 12/19/20 17:45 Allergies Allergies Allergies Coded Allergies Type Severity Reaction Last Updated Verified No Known Drug Allergies 05/20/20 No ROS Review of System CONSTITUTIONAL: No fever or chills EYES: No recent changes SKIN: No rash or itching CARDIOVASCULAR: No chest pain, syncope, palpitations, or edema RESPIRATORY: No SOB or cough GASTROINTESTINAL: No nausea, vomiting or abdominal pain NEUROLOGICAL: No headaches or weakness ENDOCRINE: No cold or heat intolerance GENITOURINARY: No urgency or frequency of urination MUSCULOSKELETAL: No back pain or joint pain LYMPHATICS: No enlarged lymph nodes PSYCHIATRIC: No anxiety or depression Physical Exam Physical Exam GEN.: No apparent distress. Alert and oriented. HEENT: Head is normocephalic, atraumatic NECK: Supple. LUNGS: Clear to auscultation. HEART: RRR, S1, S2 present. Peripheral pulses intact ABDOMEN: Soft, nontender. Positive bowel sounds. EXTREMITIES: Without any cyanosis. NEUROLOGIC: Normal speech, normal tone PSYCHIATRIC: Normal affect, normal mood. SKIN: No ulcerations Vitals Vitals Vital Signs Date Time Temp Pulse Resp B/P (MAP) Pulse Ox O2 Delivery O2 Flow Rate FiO2 12/19/20 13:35 98.2 76 18 168/67 (100) 98 Room Air 98.2 Labs Labs Laboratory Tests Test 12/19/20 13:32 12/19/20 14:05 Urine Collection Type Unknown Urine Color Yellow Urine Clarity Clear Urine pH 5.5 (<5.0-8.0) Urine Specific [place] 1.015 (1.000-1.030) Urine Protein Negative mg/dL (NEG-TRACE) Urine Glucose (UA) Negative mg/dL (NEG) Urine Ketones (Stick) Negative mg/dL (NEG) Urine Blood Negative (NEG) Urine Nitrite Negative (NEG) Urine Bilirubin Negative (NEG) Urine Urobilinogen Dipstick 1.0 mg/dL (0.2 mg/dL) Urine Leukocyte Esterase Negative (NEG) Urine RBC 1-2 /HPF (0-2) Urine WBC 1-4 /HPF (0-4) Urine Squamous Epithelial Cells Few /LPF Urine Bacteria Few /HPF (0-FEW) Urine Mucus Mod /LPF White Blood Count 14.7 x10^3/uL (4.0-11.0) Red Blood Count 4.81 x10^6/uL (4.30-5.70) Hemoglobin 14.2 g/dL (13.0-17.5) Hematocrit 42.9 % (39.0-53.0) Mean Corpuscular Volume 89 fL (79-100) Mean Corpuscular Hemoglobin 30 pg (25-35) Mean Corpuscular Hemoglobin Concent 33 g/dL (31-37) Red Cell Distribution Width 12.9 % (11.5-14.5) Platelet Count 156 x10^3/uL (140-400) Neutrophils (%) (Auto) 83 % (31-73) Lymphocytes (%) (Auto) 8 % (24-48) Monocytes (%) (Auto) 6 % (0-9) Eosinophils (%) (Auto) 3 % (0-3) Basophils (%) (Auto) 0 % (0-3) Neutrophils # (Auto) 12.2 x10^3/uL (1.8-7.7) Lymphocytes # (Auto) 1.1 x10^3/uL (1.0-4.8) Monocytes # (Auto) 0.9 x10^3/uL (0.0-1.1) Eosinophils # (Auto) 0.4 x10^3/uL (0.0-0.7) Basophils # (Auto) 0.1 x10^3/uL (0.0-0.2) Sodium Level 138 mmol/L (136-145) Potassium Level 4.1 mmol/L (3.5-5.1) Chloride Level 105 mmol/L (98-107) Carbon Dioxide Level 27 mmol/L (21-32) Anion Gap 6 (6-14) Blood Urea Nitrogen 13 mg/dL (8-26) Creatinine 1.4 mg/dL (0.7-1.3) Estimated GFR (Cockcroft-Gault) 61.2 BUN/Creatinine Ratio 9 (6-20) Glucose Level 110 mg/dL (70-99) Calcium Level 9.2 mg/dL (8.5-10.1) Magnesium Level 2.0 mg/dL (1.8-2.4) Total Bilirubin 0.6 mg/dL (0.2-1.0) Aspartate Amino Transf (AST/SGOT) 12 U/L (15-37) Alanine Aminotransferase (ALT/SGPT) 30 U/L (16-63) Alkaline Phosphatase 74 U/L (46-116) Troponin I Quantitative 0.022 ng/mL (0.000-0.055) RU-Ipm-V-Type Natriuretic Peptide 98 pg/mL (0-124) Total Protein 8.5 g/dL (6.4-8.2) Albumin 4.1 g/dL (3.4-5.0) Albumin/Globulin Ratio 0.9 (1.0-1.7) Lipase 122 U/L (73-393) Laboratory Tests Test 12/19/20 13:32 12/19/20 14:05 Urine Collection Type Unknown Urine Color Yellow Urine Clarity Clear Urine pH 5.5 (<5.0-8.0) Urine Specific [place] 1.015 (1.000-1.030) Urine Protein Negative mg/dL (NEG-TRACE) Urine Glucose (UA) Negative mg/dL (NEG) Urine Ketones (Stick) Negative mg/dL (NEG) Urine Blood Negative (NEG) Urine Nitrite Negative (NEG) Urine Bilirubin Negative (NEG) Urine Urobilinogen Dipstick 1.0 mg/dL (0.2 mg/dL) Urine Leukocyte Esterase Negative (NEG) Urine RBC 1-2 /HPF (0-2) Urine WBC 1-4 /HPF (0-4) Urine Squamous Epithelial Cells Few /LPF Urine Bacteria Few /HPF (0-FEW) Urine Mucus Mod /LPF White Blood Count 14.7 x10^3/uL (4.0-11.0) Red Blood Count 4.81 x10^6/uL (4.30-5.70) Hemoglobin 14.2 g/dL (13.0-17.5) Hematocrit 42.9 % (39.0-53.0) Mean Corpuscular Volume 89 fL (79-100) Mean Corpuscular Hemoglobin 30 pg (25-35) Mean Corpuscular Hemoglobin Concent 33 g/dL (31-37) Red Cell Distribution Width 12.9 % (11.5-14.5) Platelet Count 156 x10^3/uL (140-400) Neutrophils (%) (Auto) 83 % (31-73) Lymphocytes (%) (Auto) 8 % (24-48) Monocytes (%) (Auto) 6 % (0-9) Eosinophils (%) (Auto) 3 % (0-3) Basophils (%) (Auto) 0 % (0-3) Neutrophils # (Auto) 12.2 x10^3/uL (1.8-7.7) Lymphocytes # (Auto) 1.1 x10^3/uL (1.0-4.8) Monocytes # (Auto) 0.9 x10^3/uL (0.0-1.1) Eosinophils # (Auto) 0.4 x10^3/uL (0.0-0.7) Basophils # (Auto) 0.1 x10^3/uL (0.0-0.2) Sodium Level 138 mmol/L (136-145) Potassium Level 4.1 mmol/L (3.5-5.1) Chloride Level 105 mmol/L (98-107) Carbon Dioxide Level 27 mmol/L (21-32) Anion Gap 6 (6-14) Blood Urea Nitrogen 13 mg/dL (8-26) Creatinine 1.4 mg/dL (0.7-1.3) Estimated GFR (Cockcroft-Gault) 61.2 BUN/Creatinine Ratio 9 (6-20) Glucose Level 110 mg/dL (70-99) Calcium Level 9.2 mg/dL (8.5-10.1) Magnesium Level 2.0 mg/dL (1.8-2.4) Total Bilirubin 0.6 mg/dL (0.2-1.0) Aspartate Amino Transf (AST/SGOT) 12 U/L (15-37) Alanine Aminotransferase (ALT/SGPT) 30 U/L (16-63) Alkaline Phosphatase 74 U/L (46-116) Troponin I Quantitative 0.022 ng/mL (0.000-0.055) OZ-Ycu-K-Type Natriuretic Peptide 98 pg/mL (0-124) Total Protein 8.5 g/dL (6.4-8.2) Albumin 4.1 g/dL (3.4-5.0) Albumin/Globulin Ratio 0.9 (1.0-1.7) Lipase 122 U/L (73-393) VTE Prophylaxis Ordered VTE Prophylaxis Devices: Yes VTE Pharmacological Prophylaxi: Yes Assessment/Plan Assessment/Plan Distended gallbladder, acute cholecystitis? Leukocytosis Essential hypertension GERD Plan: N.p.o. after midnight Resume home medications DVT prophylaxis with Lovenox Pain management Further recommendations based on the clinical course Surgical consultation has been requested by ER physician Justifications for Admission Other Justification KATTY NAVA MD Dec 19, 2020 17:56
--- NOTE | 2020-12-19 19:37 | NUR ---
Pt. just arrived from ED via bed w/ Cholecystitis. He is A/O x4 and will make needs known.
[2020-12-19] MEDS: MORPHINE SULFATE 2 MG/ML VIAL. IV PRN (20:38)
[2020-12-19] MEDS: SENNOSIDES/DOCUSATE 8.6/50MG TABLET. PO SCH (20:42)
[2020-12-19] MEDS: TAMSULOSIN 0.4 MG CAP.ER.24H. PO SCH (20:42)
[2020-12-19] MEDS: ATORVASTATIN CALCIUM 40 MG TABLET. PO SCH (20:43)
[2020-12-19] MEDS: ENOXAPARIN 40 MG/0.4 ML SYRINGE. SQ SCH (21:00)
[2020-12-19 23:00] VITALS: BP 153/66
[2020-12-20] MEDS: PIPERACILLIN/TAZOBACTAM 3.375 GM in IV NORMAL SALINE 50ML 50 ML IV SCH ×5 (00:09→23:49)
[2020-12-20] MEDS: MORPHINE SULFATE 2 MG/ML VIAL. IV PRN ×2 (03:18→06:06)
[2020-12-20 03:21] VITALS: BP 148/67
[2020-12-20 07:00] VITALS: BP 146/71
[2020-12-20 07:28] LABS: BASO % 0 % (0-3); EOS % 0 % (0-3); HEMATOCRIT 40.1 % (39.0-53.0); LYMPH # 0.7 x10^3/uL (1.0-4.8); LYMPH % 5 % (24-48); MEAN CORPUSCULAR HEMOGLOBIN 29 pg (25-35); MEAN CORPUSCULAR HGB CONC 32 g/dL (31-37); MEAN CORPUSCULAR VOLUME 89 fL (79-100); MONO # 1.4 x10^3/uL (0.0-1.1); MONO % 9 % (0-9); NEUT # 13.3 x10^3/uL (1.8-7.7); NEUT % 86 % (31-73); PLATELET COUNT 142 x10^3/uL (140-400); RED BLOOD COUNT 4.51 x10^6/uL (4.30-5.70); RED CELL DISTRIBUTION WIDTH 12.8 % (11.5-14.5); WHITE BLOOD COUNT 15.4 x10^3/uL (4.0-11.0)
[2020-12-20] MEDS: PANTOPRAZOLE 40 MG TABLET.DR. PO SCH (07:30)
[2020-12-20] MEDS ORDERED: BUPIVACAINE MPF 0.5% 30 ML VIAL. ONE (07:43)
[2020-12-20] MEDS ORDERED: SURGICEL HEMOSTAT 4X8 EACH. ONE (07:43)
[2020-12-20] MEDS ORDERED: IOHEXOL 300 MG/ML 50 ML VIAL. ONE (07:43)
[2020-12-20 07:50] LABS: CALCIUM 8.6 mg/dL (8.5-10.1); CREATININE 1.2 mg/dL (0.7-1.3); GFR 73.1; POTASSIUM 3.7 mmol/L (3.5-5.1)
[2020-12-20] MEDS: amLODIPine BESYLATE 10 MG TABLET PO SCH (08:06)
[2020-12-20] MEDS: LISINOPRIL 20 MG TABLET PO SCH (08:06)
[2020-12-20] MEDS: ASPIRIN CHEWABLE 81 MG TABLET. PO SCH (08:08)
[2020-12-20] MEDS: SENNOSIDES/DOCUSATE 8.6/50MG TABLET. PO SCH ×2 (08:08→20:43)
[2020-12-20] MEDS: POTASSIUM CHLORIDE 20 MEQ TABLET.ER. PO SCH (08:08)
[2020-12-20] MEDS: FUROSEMIDE 40 MG TABLET. PO SCH (08:08)
--- NOTE | 2020-12-20 08:52 | PDOC2 ---
LAUREN BECKHAM [employer] 12/20/20 0852: CONSULT Date of Consult Date of Consult DATE: 12/20/20 TIME: 08:47 Reason for Consult Reason for Consult: possible cholecystitis Referring Physician Referring Physician: ER Identification/Chief Complaint Chief Complaint abdominal pain Source Source: Chart review, Patient History of Present Illness Reason for Visit: Reports acute onset of epigastric pain yesterday, worsened over the day. Last night nausea and emesis. No diarrhea. He does have chronic left flank pain, says that can not determine cause. This pain yesterday was different and worse than any pain in past. Hx of stent, however Cardiology has stopped anti- platelet medications in past, so currently not on. Does reports drinks regularly, sometimes up to a 6 pack of beer a day Past Medical History Cardiovascular: CAD, CHF, HTN, Mitral valve stenosis, Valve insufficiency, Pulmonary hypertension Pulmonary: Other CENTRAL NERVOUS SYSTEM: Other GI: GERD, Other Heme/Onc: No pertinent hx Hepatobiliary: No pertinent hx Psych: No pertinent hx Musculoskeletal: Osteoarthritis Infectious disease: No pertinent hx Renal/: Benign prostatic enlarg. Endocrine: Diabetes Past Surgical History Past Surgical History: No pertinent history Family History Family History: Coronary Artery Disease Social History No ALCOHOL: none Drugs: None Lives: with Family Current Problem List Problem List Problems Medical Problems: (1) Acute cholecystitis Status: Acute Current Medications Current Medications Current Medications Multi-Ingredient Mouthwash/Gargle (Gi Cocktail) 20 ml 1X ONCE SWSW Last administered on 12/19/20at 14:15; Start 12/19/20 at 14:00; Stop 12/19/20 at 14:01; Status DC Famotidine (Pepcid) 20 mg 1X ONCE PO Last administered on 12/19/20at 14:15; Start 12/19/20 at 14:00; Stop 12/19/20 at 14:01; Status DC Piperacillin Sod/ Tazobactam Sod 3.375 gm/Sodium Chloride 50 ml @ 100 mls/hr 1X ONCE IV Last administered on 12/19/20at 17:40; Start 12/19/20 at 17:30; Stop 12/19/20 at 17:59; Status DC Fentanyl Citrate (Fentanyl 2ml Vial) 50 mcg 1X ONCE IVP Last administered on 12/19/20at 17:40; Start 12/19/20 at 17:30; Stop 12/19/20 at 17:31; Status DC Ondansetron HCl (Zofran) 4 mg 1X ONCE IVP Last administered on 12/19/20at 17:40; Start 12/19/20 at 17:30; Stop 12/19/20 at 17:31; Status DC Ringer's Solution 1,000 ml @ 100 mls/hr Q10H IV Last administered on 12/19/20at 20:40; Start 12/19/20 at 17:45; Stop 12/20/20 at 03:44; Status DC Ondansetron HCl (Zofran) 4 mg PRN Q6HRS PRN IVP NAUSEA/VOMITING; Start 12/19/20 at 17:45 Prochlorperazine (Compazine) 25 mg PRN Q12HR PRN [place] NAUSEA/VOMITING; Start 12/19/20 at 17:45 Zolpidem Tartrate (Ambien) 5 mg PRN QHS PRN PO INSOMNIA, MAY REPEAT IN 1HR; Start 12/19/20 at 17:45 Info (Non-Icu Electrolyte Protocol) 1 ea PRN DAILY PRN MC SEE COMMENTS; Start 12/19/20 at 17:45 Morphine Sulfate (Morphine Sulfate) 2 mg PRN Q1HR PRN IV PAIN Last administered on 12/20/20at 06:06; Start 12/19/20 at 17:45 Acetaminophen (Tylenol) 650 mg PRN Q6HRS PRN PO Headaches, Temp > 101.5F; Start 12/19/20 at 17:45 Senna/Docusate Sodium (Senna Plus) 1 tab BID PO Last administered on 12/19/20at 20:42; Start 12/19/20 at 21:00 Magnesium Hydroxide (Milk Of Magnesia) 2,400 mg PRN Q12HR PRN PO CONSTIPATION; Start 12/19/20 at 17:45 Lactulose (Lactulose) 20 gm PRN Q12HR PRN PO CONSTIPATION-2ND CHOICE; Start 12/19/20 at 17:45 Bisacodyl (Dulcolax Supp) 10 mg PRN DAILY PRN [place] CONSTIPATION; Start 12/19/20 at 17:45 Enoxaparin Sodium (Lovenox 40mg Syringe) 40 mg Q24H SQ ; Start 12/19/20 at 21:00 Acetaminophen (Tylenol) 500 mg PRN Q6HRS PRN PO HEADACHE; Start 12/19/20 at 17:45; Status UNV Amlodipine Besylate (Norvasc) 10 mg DAILY PO Last administered on 12/20/20at 08:06; Start 12/20/20 at 09:00 Aspirin (Aspirin Chewable) 81 mg DAILY PO ; Start 12/20/20 at 09:00 Furosemide (Lasix) 40 mg DAILY PO ; Start 12/20/20 at 09:00 Lisinopril (Prinivil) 20 mg DAILY PO Last administered on 12/20/20at 08:06; Start 12/20/20 at 09:00 Potassium Chloride (Klor-Con) 20 meq DAILY PO ; Start 12/20/20 at 09:00 Tamsulosin HCl (Flomax) 0.4 mg HS PO Last administered on 12/19/20at 20:42; Start 12/19/20 at 21:00 Atorvastatin Calcium (Lipitor) 80 mg QHS PO Last administered on 12/19/20at 20:43; Start 12/19/20 at 21:00 Pantoprazole Sodium (Protonix) 40 mg DAILYAC PO ; Start 12/20/20 at 07:30 Piperacillin Sod/ Tazobactam Sod 3.375 gm/Sodium Chloride 50 ml @ 100 mls/hr Q6HRS IV Last administered on 12/20/20at 05:52; Start 12/20/20 at 00:00 Oxycodone/ Acetaminophen (Percocet 5/325) 1 tab PRN Q6HRS PRN PO PAIN Last administered on 12/20/20at 08:06; Start 12/20/20 at 00:00 Iohexol (Omnipaque 300 Mg/ml) 50 ml STK-MED ONCE .ROUTE ; Start 12/20/20 at 07:43; Stop 12/20/20 at 07:43; Status DC Cellulose (Surgicel Hemostat 4x8) 1 each STK-MED ONCE .ROUTE ; Start 12/20/20 at 07:43; Stop 12/20/20 at 07:43; Status DC Bupivacaine HCl (Sensorcaine Mpf 0.5%) 30 ml STK-MED ONCE .ROUTE ; Start 12/20/20 at 07:43; Stop 12/20/20 at 07:43; Status DC Active Scripts Active Reported Lisinopril 20 Mg Tablet 1 Tab PO DAILY Dexilant (Dexlansoprazole) 60 Mg Steven. 1 Cap PO DAILY 30 Days Tylenol Extra Strength (Acetaminophen) 500 Mg Tablet 500 Mg PO PRN Q6HRS PRN Amlodipine Besylate 10 Mg Tablet 10 Mg PO DAILY Atorvastatin Calcium 80 Mg Tablet 80 Mg PO HS Lasix (Furosemide) 40 Mg Tablet 1 Tab PO DAILY Potassium Chloride (Potassium Chloride) 20 Meq Tablet.er 20 Meq PO DAILY Aspirin 81 Mg Tab.chew 1 Tab PO DAILY Tamsulosin Hcl 0.4 Mg Cap.er.24h 1 Cap PO HS Allergies Allergies: Coded Allergies: No Known Drug Allergies (Unverified , 05/20/20) ROS General: No: Chills, Other (fevers ) PSYCHOLOGICAL ROS: No: Anxiety, Depression Eyes: No Blurry vision, No Double vision HEENT: No: Heacaches, Sore Throat Hematological and Lymphatic: No: Bleeding Problems, Blood Clots Respiratory: No: Cough, Shortness of breath Gastrointestinal: Yes Other (see hpi) Genitourinary: No Dysuria, No Hematuria Musculoskeletal: No Joint Pain, No Muscle Pain Neurological: No Impaired Coord/balance, No Numbness/Tingling Skin: No Pruritus, No Rash Physical Exam General: Alert, Oriented X3, Cooperative HEENT: Atraumatic, PERRLA Lungs: Clear to auscultation, Normal air movement Heart: Regular rate, Normal S1, Normal S2 Abdomen: Soft, Other (minimal TTP epigastric ) Extremities: No clubbing, No cyanosis Skin: No rashes, No breakdown Neuro: Normal gait, Normal speech Psych/Mental Status: Mental status NL, Mood NL MUSCULOSKELETAL: No deformity, No swelling Vitals VITALS Vital Signs Date Time Temp Pulse Resp B/P (MAP) Pulse Ox O2 Delivery O2 Flow Rate FiO2 12/20/20 08:06 Room Air 12/20/20 08:06 62 146/71 12/20/20 07:00 99.4 18 98 99.4 Labs Labs Laboratory Tests Test 12/19/20 13:32 12/19/20 14:05 12/19/20 17:40 12/20/20 06:35 Urine Collection Type Unknown Urine Color Yellow Urine Clarity Clear Urine pH 5.5 (<5.0-8.0) Urine Specific [place] 1.015 (1.000-1.030) Urine Protein Negative mg/dL (NEG-TRACE) Urine Glucose (UA) Negative mg/dL (NEG) Urine Ketones (Stick) Negative mg/dL (NEG) Urine Blood Negative (NEG) Urine Nitrite Negative (NEG) Urine Bilirubin Negative (NEG) Urine Urobilinogen Dipstick 1.0 mg/dL (0.2 mg/dL) Urine Leukocyte Esterase Negative (NEG) Urine RBC 1-2 /HPF (0-2) Urine WBC 1-4 /HPF (0-4) Urine Squamous Epithelial Cells Few /LPF Urine Bacteria Few /HPF (0-FEW) Urine Mucus Mod /LPF White Blood Count 14.7 x10^3/uL (4.0-11.0) 15.4 x10^3/uL (4.0-11.0) Red Blood Count 4.81 x10^6/uL (4.30-5.70) 4.51 x10^6/uL (4.30-5.70) Hemoglobin 14.2 g/dL (13.0-17.5) 13.0 g/dL (13.0-17.5) Hematocrit 42.9 % (39.0-53.0) 40.1 % (39.0-53.0) Mean Corpuscular Volume 89 fL (79-100) 89 fL (79-100) Mean Corpuscular Hemoglobin 30 pg (25-35) 29 pg (25-35) Mean Corpuscular Hemoglobin Concent 33 g/dL (31-37) 32 g/dL (31-37) Red Cell Distribution Width 12.9 % (11.5-14.5) 12.8 % (11.5-14.5) Platelet Count 156 x10^3/uL (140-400) 142 x10^3/uL (140-400) Neutrophils (%) (Auto) 83 % (31-73) 86 % (31-73) Lymphocytes (%) (Auto) 8 % (24-48) 5 % (24-48) Monocytes (%) (Auto) 6 % (0-9) 9 % (0-9) Eosinophils (%) (Auto) 3 % (0-3) 0 % (0-3) Basophils (%) (Auto) 0 % (0-3) 0 % (0-3) Neutrophils # (Auto) 12.2 x10^3/uL (1.8-7.7) 13.3 x10^3/uL (1.8-7.7) Lymphocytes # (Auto) 1.1 x10^3/uL (1.0-4.8) 0.7 x10^3/uL (1.0-4.8) Monocytes # (Auto) 0.9 x10^3/uL (0.0-1.1) 1.4 x10^3/uL (0.0-1.1) Eosinophils # (Auto) 0.4 x10^3/uL (0.0-0.7) 0.0 x10^3/uL (0.0-0.7) Basophils # (Auto) 0.1 x10^3/uL (0.0-0.2) 0.0 x10^3/uL (0.0-0.2) Sodium Level 138 mmol/L (136-145) 139 mmol/L (136-145) Potassium Level 4.1 mmol/L (3.5-5.1) 3.7 mmol/L (3.5-5.1) Chloride Level 105 mmol/L (98-107) 104 mmol/L (98-107) Carbon Dioxide Level 27 mmol/L (21-32) 25 mmol/L (21-32) Anion Gap 6 (6-14) 10 (6-14) Blood Urea Nitrogen 13 mg/dL (8-26) 14 mg/dL (8-26) Creatinine 1.4 mg/dL (0.7-1.3) 1.2 mg/dL (0.7-1.3) Estimated GFR (Cockcroft-Gault) 61.2 73.1 BUN/Creatinine Ratio 9 (6-20) Glucose Level 110 mg/dL (70-99) 139 mg/dL (70-99) Calcium Level 9.2 mg/dL (8.5-10.1) 8.6 mg/dL (8.5-10.1) Magnesium Level 2.0 mg/dL (1.8-2.4) Total Bilirubin 0.6 mg/dL (0.2-1.0) Aspartate Amino Transf (AST/SGOT) 12 U/L (15-37) Alanine Aminotransferase (ALT/SGPT) 30 U/L (16-63) Alkaline Phosphatase 74 U/L (46-116) Troponin I Quantitative 0.022 ng/mL (0.000-0.055) RT-Kab-K-Type Natriuretic Peptide 98 pg/mL (0-124) Total Protein 8.5 g/dL (6.4-8.2) Albumin 4.1 g/dL (3.4-5.0) Albumin/Globulin Ratio 0.9 (1.0-1.7) Lipase 122 U/L (73-393) SARS-CoV-2 Antigen (Rapid) Negative (NEGATIVE) Laboratory Tests Test 12/19/20 13:32 12/19/20 14:05 12/19/20 17:40 12/20/20 06:35 Urine Collection Type Unknown Urine Color Yellow Urine Clarity Clear Urine pH 5.5 (<5.0-8.0) Urine Specific [place] 1.015 (1.000-1.030) Urine Protein Negative mg/dL (NEG-TRACE) Urine Glucose (UA) Negative mg/dL (NEG) Urine Ketones (Stick) Negative mg/dL (NEG) Urine Blood Negative (NEG) Urine Nitrite Negative (NEG) Urine Bilirubin Negative (NEG) Urine Urobilinogen Dipstick 1.0 mg/dL (0.2 mg/dL) Urine Leukocyte Esterase Negative (NEG) Urine RBC 1-2 /HPF (0-2) Urine WBC 1-4 /HPF (0-4) Urine Squamous Epithelial Cells Few /LPF Urine Bacteria Few /HPF (0-FEW) Urine Mucus Mod /LPF White Blood Count 14.7 x10^3/uL (4.0-11.0) 15.4 x10^3/uL (4.0-11.0) Red Blood Count 4.81 x10^6/uL (4.30-5.70) 4.51 x10^6/uL (4.30-5.70) Hemoglobin 14.2 g/dL (13.0-17.5) 13.0 g/dL (13.0-17.5) Hematocrit 42.9 % (39.0-53.0) 40.1 % (39.0-53.0) Mean Corpuscular Volume 89 fL (79-100) 89 fL (79-100) Mean Corpuscular Hemoglobin 30 pg (25-35) 29 pg (25-35) Mean Corpuscular Hemoglobin Concent 33 g/dL (31-37) 32 g/dL (31-37) Red Cell Distribution Width 12.9 % (11.5-14.5) 12.8 % (11.5-14.5) Platelet Count 156 x10^3/uL (140-400) 142 x10^3/uL (140-400) Neutrophils (%) (Auto) 83 % (31-73) 86 % (31-73) Lymphocytes (%) (Auto) 8 % (24-48) 5 % (24-48) Monocytes (%) (Auto) 6 % (0-9) 9 % (0-9) Eosinophils (%) (Auto) 3 % (0-3) 0 % (0-3) Basophils (%) (Auto) 0 % (0-3) 0 % (0-3) Neutrophils # (Auto) 12.2 x10^3/uL (1.8-7.7) 13.3 x10^3/uL (1.8-7.7) Lymphocytes # (Auto) 1.1 x10^3/uL (1.0-4.8) 0.7 x10^3/uL (1.0-4.8) Monocytes # (Auto) 0.9 x10^3/uL (0.0-1.1) 1.4 x10^3/uL (0.0-1.1) Eosinophils # (Auto) 0.4 x10^3/uL (0.0-0.7) 0.0 x10^3/uL (0.0-0.7) Basophils # (Auto) 0.1 x10^3/uL (0.0-0.2) 0.0 x10^3/uL (0.0-0.2) Sodium Level 138 mmol/L (136-145) 139 mmol/L (136-145) Potassium Level 4.1 mmol/L (3.5-5.1) 3.7 mmol/L (3.5-5.1) Chloride Level 105 mmol/L (98-107) 104 mmol/L (98-107) Carbon Dioxide Level 27 mmol/L (21-32) 25 mmol/L (21-32) Anion Gap 6 (6-14) 10 (6-14) Blood Urea Nitrogen 13 mg/dL (8-26) 14 mg/dL (8-26) Creatinine 1.4 mg/dL (0.7-1.3) 1.2 mg/dL (0.7-1.3) Estimated GFR (Cockcroft-Gault) 61.2 73.1 BUN/Creatinine Ratio 9 (6-20) Glucose Level 110 mg/dL (70-99) 139 mg/dL (70-99) Calcium Level 9.2 mg/dL (8.5-10.1) 8.6 mg/dL (8.5-10.1) Magnesium Level 2.0 mg/dL (1.8-2.4) Total Bilirubin 0.6 mg/dL (0.2-1.0) Aspartate Amino Transf (AST/SGOT) 12 U/L (15-37) Alanine Aminotransferase (ALT/SGPT) 30 U/L (16-63) Alkaline Phosphatase 74 U/L (46-116) Troponin I Quantitative 0.022 ng/mL (0.000-0.055) XT-Zwe-H-Type Natriuretic Peptide 98 pg/mL (0-124) Total Protein 8.5 g/dL (6.4-8.2) Albumin 4.1 g/dL (3.4-5.0) Albumin/Globulin Ratio 0.9 (1.0-1.7) Lipase 122 U/L (73-393) SARS-CoV-2 Antigen (Rapid) Negative (NEGATIVE) Assessment/Plan Assessment/Plan distended GB with wall thickening, no mention of stones cardiac hx will review with Dr Wood --tentative plan for surgery this AM MICHELLE WOOD MD 12/20/20 1025: CONSULT Assessment/Plan Assessment/Plan pt seen and examined by myself; 65 year old male reported to the ER with abdominal pain starting yesterday. The pain was located in the upper mid abdomen without radiation. He reports some associated nausea. He does describe a chronic, nagging, frequent left upper lateral abdominal pain. He states that he has told his PCP about this many times with no known etiology. PMH/PSH/ROS/S H as above; exam: alert, oriented, no distress, lungs clear, heart RR and R, abdomen obese, soft, mildly tender in RUQ without guarding, ext neg for edema. Labs/Xrays reviewed. A/P) Upper abdominal pain, findings concerning for cholecystitis on CT/sonogram. Plan for lap teresa, grams. The details and risks of surgery were discussed with the patient. He understands and would like to proceed. LAUREN BECKHAM APRN Dec 20, 2020 08:52 MICHELLE WOOD MD Dec 20, 2020 10:25
[2020-12-20 09:36] LABS: % LYMPHS 3 % (24-48); % MONOS 8 % (0-10); % SEGS 89 % (35-66); PLT ESTIMATE ADEQUATE (ADEQUATE)
[2020-12-20] MEDS ORDERED: ROCURONIUM 50 MG/5 ML VIAL. ONE (09:45)
--- NOTE | 2020-12-20 10:15 | NUR ---
SW following. Discussed with RN, pt from home, room air, NPO. Pt having a lap teresa today. RN advised no SW needs at this time. SW will continue to follow.
[2020-12-20] MEDS ORDERED: FAMOTIDINE 20 MG/2 ML VIAL ONE (10:20)
[2020-12-20] MEDS ORDERED: LIDOCAINE 2% PF 5 ML VIAL. ONE ×2 (10:20→11:30)
[2020-12-20] MEDS ORDERED: PROPOFOL 10 MG/ML (20ML) VIAL. IV ONE (10:20)
[2020-12-20] MEDS ORDERED: SEVOFLURANE 61 TO 120 MINUTES. IH ONE (10:45)
[2020-12-20] MEDS ORDERED: NEOSTIGMINE METHYLSULFATE 5 MG/5 ML SYRINGE. ONE (10:49)
[2020-12-20] MEDS ORDERED: fentaNYL PF VIAL 100 MCG/2 ML VIAL ONE (10:50)
[2020-12-20] MEDS ORDERED: DEXAMETHASONE SOD PHOS 4 MG/ML VIAL ONE (10:50)
[2020-12-20] MEDS ORDERED: GLYCOPYRROLATE 1 MG/5 ML VIAL. ONE (10:50)
[2020-12-20] MEDS ORDERED: ONDANSETRON PF 4 MG/2 ML VIAL. ONE (10:50)
[2020-12-20] MEDS ORDERED: KETOROLAC 30 MG/ML VIAL. ONE (10:50)
--- NOTE | 2020-12-20 11:44 | PDOC4 ---
Operative Note Operative Note Operative Note: Preoperative Diagnosis: Acute cholecystitis Postoperative Diagnosis: Same Procedure: Laparoscopic cholecystectomy with intraoperative cholangiogram Surgeons: [place] Unitizer: Desiree GERBER Anesthesia: Gen. Estimated Blood Loss: 10 mL Specimen: Gallbladder to pathology Drains: None Complications: None Indications: The patient is a 65-year-old male who reported with abdominal pain. His evaluation is consistent with cholecystitis. Surgical treatment was offered by means of a laparoscopic cholecystectomy. The risks of surgery were discussed which include bleeding, infection, bile duct injury, bile leak, pain, the potential for additional surgeries or procedures. The patient understands and would like to proceed. Description: The patient was taken to the operating room and laid supine on the operating table. General anesthesia was performed. The abdomen was prepped with ChloraPrep and draped in a standard surgical fashion. A small infraumbilical incision was made with a scalpel. The Veress needle was then inserted and a pneumoperitoneum was then created. A 5 mm trocar was then inserted and the laparoscope was introduced. In the upper midabdomen an 11 mm trocar was inserted and in the right upper quadrant two 5 mm trochars were inserted. The gallbladder was thickened with inflammatory change of the wall consistent with acute cholecystitis. Approximately 50 cc of turbid fluid was aspirated providing gallbladder decompression. The gallbladder was retracted cephalad. The cystic duct was dissected free from surrounding tissues. One clip was placed on the duct near the gallbladder junction. An opening was made in the duct and a cholangiocatheter placed within and secured with a clip. Using contrast dye and fluoroscopy an intraoperative cholangiogram was performed that appeared unremarkable. The clip and catheter were then withdrawn. Three clips were placed on the cystic duct and it was divided. The cystic artery was then identified, dissected free, doubly clipped and divided as well. The gallbladder was then mobilized away from the liver with cautery. The gallbladder was then placed in an endoscopic bag and extracted at the superior trocar site. The fascia there was closed with an 0 PDS sutures. All blood and irrigation fluid was suctioned and hemostasis was good. The remaining ports were removed and the pneumoperitoneum was relieved. The skin incisions were injected with half percent Marcaine with epinephrine, and all were closed using 4-0 Monocryl suture. Steri-Strips and dressings were then applied. The patient tolerated the procedure well and was sent to the recovery room in stable condition. At the end of the case all counts were correct. MICHELLE SRIVASTAVA MD Dec 20, 2020 11:44
[2020-12-20] MEDS ORDERED: oxyCODONE/APAP 5/325 1 TAB TABLET PO PRN ×3 (11:45→12:00)
[2020-12-20] MEDS ORDERED: IV RINGERS,LACTATED 1000ML 1,000 ML IV SCH (12:00)
[2020-12-20] MEDS ORDERED: HYDROmorphone 2 MG/ML VIAL IVP PRN (12:00)
[2020-12-20] MEDS ORDERED: MORPHINE SULFATE 2 MG/ML VIAL. IVP PRN (12:00)
[2020-12-20] MEDS ORDERED: PROCHLORPERAZINE 10 MG/2 ML VIAL. IVP PRN (12:00)
[2020-12-20] MEDS ORDERED: fentaNYL PF VIAL 100 MCG/2 ML VIAL IVP PRN ×2 (12:00)
--- NOTE | 2020-12-20 12:03 | EKG ---
[facility] [address] [place] [address] Test Date: 2020-12-19 Test Time: 14:03:37 Pat Name: KEYON GREEN Department: Room: 526 1 Gender: M Physician Office Clin Asst: : 1955 Requested By: THEO HUSSEIN Order Number: [id number] Reading MD: Kole Rascon Measurements Intervals [place] Rate: 64 P: 42 VA: 168 QRS: 17 QRSD: 72 T: 43 QT: 382 QTc: 398 Interpretive Statements SINUS RHYTHM NORMAL ECG Electronically Signed On 12-21-2020 9:28:14 SECURITY SCREENER by Kole Rascon
--- NOTE | 2020-12-20 12:56 | RAD ---
EXAM: Intraoperative cholangiogram. HISTORY: Cholecystectomy. Pain. COMPARISON: None. FINDINGS: 3 fluoroscopic images are obtained during an intraoperative cholangiogram. The images demon strate contrast opacification of the biliary tree and proximal small bowel. There is no evidence of a retained stone. There is focal narrowing of the downstream common bile duct which may be due to a sp asm or stricture. The total fluoroscopy time is 21 seconds. IMPRESSION: Intraoperative glandular and without evidence of a retained stone. There is focal narrowi ng of the downstream common bile duct which may be due to a spasm or stricture. Electronically signed by: Angle Higgins MD (12/20/2020 12:54 PM) [id number]
--- NOTE | 2020-12-20 14:12 | PDOC ---
[facility] PROGRESS NOTE Date of Service DOS: DATE: 12/20/20 TIME: 14:10 Chief Complaint Chief Complaint Acute cholecystitis on-call to the OR for cholecystectomy Leukocytosis Essential hypertension GERD Plan: Continue Zosyn for empiric IV antibiotic coverage N.p.o. after midnight Resume home medications DVT prophylaxis with Lovenox Pain management Further recommendations based on the clinical course Surgical consultation has been requested by ER physician History of Present Illness History of Present Illness 12/20/2020 No acute events overnight. No complaints voiced at this time. Taken down to the OR for laparoscopic cholecystectomy. Patient's chart, labs, images were reviewed and discussed with RN 65-year-old gentleman with past medical history of hypertension GERD who was in his usual state of health until the morning of admission when he presented severe epigastric pain 10 out of 10 intensity over the epigastric area. The patient also complained of left flank pain with no urinary symptoms no hematuria reported. He was evaluated in the emergency department and found to have a distended gallbladder. Patient is now presenting acute abdomen signs he denies any fever or diaphoresis no recent sick contacts no dietary transgressions have been reported. Due to the progressive nature and intensity of his pain he decided to come to the emergency department for evaluation. At the time my evaluation he is in no acute distress he denies any headache no recent upper respiratory tract infection symptoms no chest pain no palpitations no shortness of breath no dyspnea diaphoresis no nausea or vomiting has been reported no diarrhea either. Patient will be admitted for surgical evaluation in the a.m. Vitals/I&O Vitals/I&O: Vital Signs Date Time Temp Pulse Resp B/P (MAP) Pulse Ox O2 Delivery O2 Flow Rate FiO2 12/20/20 12:24 98.0 59 20 131/59 96 Room Air 98.0 12/20/20 11:53 10 I & O 12/19/20 12/19/20 12/20/20 15:00 23:00 07:00 Output Total 0 ml Balance 0 ml Physical Exam General: Alert, Oriented X3, Cooperative Heart: Regular rate, Normal S1, Normal S2 Lungs: Clear Abdomen: Soft, Other (minimal TTP epigastric ) Extremities: No clubbing, No cyanosis Skin: No rashes, No breakdown Labs Labs: Laboratory Tests Test 12/19/20 17:40 12/20/20 06:35 SARS-CoV-2 Antigen (Rapid) Negative (NEGATIVE) White Blood Count 15.4 x10^3/uL (4.0-11.0) Red Blood Count 4.51 x10^6/uL (4.30-5.70) Hemoglobin 13.0 g/dL (13.0-17.5) Hematocrit 40.1 % (39.0-53.0) Mean Corpuscular Volume 89 fL (79-100) Mean Corpuscular Hemoglobin 29 pg (25-35) Mean Corpuscular Hemoglobin Concent 32 g/dL (31-37) Red Cell Distribution Width 12.8 % (11.5-14.5) Platelet Count 142 x10^3/uL (140-400) Neutrophils (%) (Auto) 86 % (31-73) Lymphocytes (%) (Auto) 5 % (24-48) Monocytes (%) (Auto) 9 % (0-9) Eosinophils (%) (Auto) 0 % (0-3) Basophils (%) (Auto) 0 % (0-3) Neutrophils # (Auto) 13.3 x10^3/uL (1.8-7.7) Lymphocytes # (Auto) 0.7 x10^3/uL (1.0-4.8) Monocytes # (Auto) 1.4 x10^3/uL (0.0-1.1) Eosinophils # (Auto) 0.0 x10^3/uL (0.0-0.7) Basophils # (Auto) 0.0 x10^3/uL (0.0-0.2) Segmented Neutrophils % 89 % (35-66) Lymphocytes % 3 % (24-48) Monocytes % 8 % (0-10) Platelet Estimate Adequate (ADEQUATE) Large Platelets Occ Sodium Level 139 mmol/L (136-145) Potassium Level 3.7 mmol/L (3.5-5.1) Chloride Level 104 mmol/L (98-107) Carbon Dioxide Level 25 mmol/L (21-32) Anion Gap 10 (6-14) Blood Urea Nitrogen 14 mg/dL (8-26) Creatinine 1.2 mg/dL (0.7-1.3) Estimated GFR (Cockcroft-Gault) 73.1 Glucose Level 139 mg/dL (70-99) Calcium Level 8.6 mg/dL (8.5-10.1) Assessment and Plan Assessmemt and Plan Problems Medical Problems: (1) Acute cholecystitis Status: Acute Comment Review of Relevant I have reviewed the following items rona (where applicable) has been applied. Medications: Current Medications Medications (Trade) Dose Ordered Sig/Stacey Route PRN Reason Start Time Stop Time Status Last Admin Dose Admin Piperacillin Sod/ Tazobactam Sod 3.375 gm/Sodium Chloride 50 ml @ 100 mls/hr 1X ONCE IV 12/19/20 17:30 12/19/20 17:59 DC 12/19/20 17:40 Fentanyl Citrate (Fentanyl 2ml Vial) 50 mcg 1X ONCE IVP 12/19/20 17:30 12/19/20 17:31 DC 12/19/20 17:40 Ondansetron HCl (Zofran) 4 mg 1X ONCE IVP 12/19/20 17:30 12/19/20 17:31 DC 12/19/20 17:40 Ringer's Solution 1,000 ml @ 100 mls/hr Q10H IV 12/19/20 17:45 12/20/20 03:44 DC 12/19/20 20:40 Morphine Sulfate (Morphine Sulfate) 2 mg PRN Q1HR PRN IV PAIN 12/19/20 17:45 12/20/20 06:06 Senna/Docusate Sodium (Senna Plus) 1 tab BID PO 12/19/20 21:00 12/19/20 20:42 Amlodipine Besylate (Norvasc) 10 mg DAILY PO 12/20/20 09:00 12/20/20 08:06 Lisinopril (Prinivil) 20 mg DAILY PO 12/20/20 09:00 12/20/20 08:06 Tamsulosin HCl (Flomax) 0.4 mg HS PO 12/19/20 21:00 12/19/20 20:42 Atorvastatin Calcium (Lipitor) 80 mg QHS PO 12/19/20 21:00 12/19/20 20:43 Piperacillin Sod/ Tazobactam Sod 3.375 gm/Sodium Chloride 50 ml @ 100 mls/hr Q6HRS IV 12/20/20 00:00 12/20/20 12:06 Oxycodone/ Acetaminophen (Percocet 5/325) 1 tab PRN Q6HRS PRN PO PAIN 12/20/20 00:00 12/20/20 11:55 DC 12/20/20 08:06 Iohexol (Omnipaque 300 Mg/ml) 50 ml STK-MED ONCE .ROUTE 12/20/20 07:43 12/20/20 07:43 DC 12/20/20 10:42 Bupivacaine HCl (Sensorcaine Mpf 0.5%) 30 ml STK-MED ONCE .ROUTE 12/20/20 07:43 12/20/20 07:43 DC 12/20/20 10:42 Ringer's Solution 1,000 ml @ 30 mls/hr Q24H IV 12/20/20 12:00 12/20/20 23:59 12/20/20 12:05 Justifications for Admission Other Justification MIGUEL SANTO MD Dec 20, 2020 14:12
[2020-12-20 15:00] VITALS: BP 146/74
[2020-12-20 19:00] VITALS: BP 137/67
[2020-12-20] MEDS ORDERED: BENZOCAINE/MENTHOL LOZENGE. PO PRN (20:30)
[2020-12-20] MEDS ORDERED: guaiFENesin DM 200MG/20MG 10 ML SYRUP PO PRN (20:30)
[2020-12-20] MEDS: TAMSULOSIN 0.4 MG CAP.ER.24H. PO SCH (20:43)
[2020-12-20] MEDS: LACTOBACILLUS RHAMNOSUS GG 1 CAPSULE. PO SCH (20:43)
[2020-12-20] MEDS: ATORVASTATIN CALCIUM 40 MG TABLET. PO SCH (20:43)
[2020-12-20] MEDS: ENOXAPARIN 40 MG/0.4 ML SYRINGE. SQ SCH (20:44)
[2020-12-20 23:00] VITALS: BP 113/58
[2020-12-21 03:00] VITALS: BP 131/62
[2020-12-21] MEDS: PIPERACILLIN/TAZOBACTAM 3.375 GM in IV NORMAL SALINE 50ML 50 ML IV SCH ×2 (05:43→13:15)
[2020-12-21 07:00] VITALS: BP 126/55
--- NOTE | 2020-12-21 07:40 | DISCH ---
DISCHARGE INSTRUCTIONS Condition on Discharge Condition on Discharge: Stable Activity After Discharge Activity Instructions for Disc: Activity as tolerated Lifting Instructions after Dis: No heavy lifting, No pulling or pushing, Do not lift >10 pounds Exercise Instruction after Dis: Progress as tolerated Driving Instructions after Dis: Do not drive today Weight Bearing Status after Di: Full weight bearing, As tolerated Diet after Discharge Diet after Discharge: Cardiac Diet Texture: Regular Liquid Texture: Thin Liquid Wound Incision Care Wound/Incision Care: May get incision wet Checks after Discharge Checks after discharge: Check blood press - daily, Check your Temp as needed Contacting the DR. after DC Call your doctor for: If your condition worsens Follow-Up Follow up with: PCP within 2 weeks of discharge Follow Up With: Surgery for postoperative wound check Treatment/Equipment after DC Adaptive Equipment Issued: None MIGUEL SANTO MD Dec 21, 2020 07:39
--- NOTE | 2020-12-21 09:52 | PDOC ---
SURGICAL PROGRESS NOTE DATE: 12/21/20 TIME: 09:50 Subjective feels much better no n/v Vital Signs Vital Signs Date Time Temp Pulse Resp B/P (MAP) Pulse Ox O2 Delivery O2 Flow Rate FiO2 12/21/20 07:00 98.0 55 20 126/55 (78) 96 98.0 12/21/20 06:02 Room Air 12/20/20 11:53 10 I&O Intake and Output 12/21/20 07:00 Intake Total 1925 ml Output Total 210 ml Balance 1715 ml Intake Oral 575 ml IV Total 1350 ml Output Urine Total 200 ml Estimated Blood Loss 10 ml # Voids 2 General: Alert, Oriented X3, Cooperative Abdomen: Soft, Other (lap dressings dry) Labs Laboratory Tests Test 12/19/20 13:32 12/19/20 14:05 12/19/20 17:40 12/20/20 06:35 Urine Collection Type Unknown Urine Color Yellow Urine Clarity Clear Urine pH 5.5 (<5.0-8.0) Urine Specific Hustler 1.015 (1.000-1.030) Urine Protein Negative mg/dL (NEG-TRACE) Urine Glucose (UA) Negative mg/dL (NEG) Urine Ketones (Stick) Negative mg/dL (NEG) Urine Blood Negative (NEG) Urine Nitrite Negative (NEG) Urine Bilirubin Negative (NEG) Urine Urobilinogen Dipstick 1.0 mg/dL (0.2 mg/dL) Urine Leukocyte Esterase Negative (NEG) Urine RBC 1-2 /HPF (0-2) Urine WBC 1-4 /HPF (0-4) Urine Squamous Epithelial Cells Few /LPF Urine Bacteria Few /HPF (0-FEW) Urine Mucus Mod /LPF White Blood Count 14.7 x10^3/uL (4.0-11.0) 15.4 x10^3/uL (4.0-11.0) Red Blood Count 4.81 x10^6/uL (4.30-5.70) 4.51 x10^6/uL (4.30-5.70) Hemoglobin 14.2 g/dL (13.0-17.5) 13.0 g/dL (13.0-17.5) Hematocrit 42.9 % (39.0-53.0) 40.1 % (39.0-53.0) Mean Corpuscular Volume 89 fL (79-100) 89 fL (79-100) Mean Corpuscular Hemoglobin 30 pg (25-35) 29 pg (25-35) Mean Corpuscular Hemoglobin Concent 33 g/dL (31-37) 32 g/dL (31-37) Red Cell Distribution Width 12.9 % (11.5-14.5) 12.8 % (11.5-14.5) Platelet Count 156 x10^3/uL (140-400) 142 x10^3/uL (140-400) Neutrophils (%) (Auto) 83 % (31-73) 86 % (31-73) Lymphocytes (%) (Auto) 8 % (24-48) 5 % (24-48) Monocytes (%) (Auto) 6 % (0-9) 9 % (0-9) Eosinophils (%) (Auto) 3 % (0-3) 0 % (0-3) Basophils (%) (Auto) 0 % (0-3) 0 % (0-3) Neutrophils # (Auto) 12.2 x10^3/uL (1.8-7.7) 13.3 x10^3/uL (1.8-7.7) Lymphocytes # (Auto) 1.1 x10^3/uL (1.0-4.8) 0.7 x10^3/uL (1.0-4.8) Monocytes # (Auto) 0.9 x10^3/uL (0.0-1.1) 1.4 x10^3/uL (0.0-1.1) Eosinophils # (Auto) 0.4 x10^3/uL (0.0-0.7) 0.0 x10^3/uL (0.0-0.7) Basophils # (Auto) 0.1 x10^3/uL (0.0-0.2) 0.0 x10^3/uL (0.0-0.2) Sodium Level 138 mmol/L (136-145) 139 mmol/L (136-145) Potassium Level 4.1 mmol/L (3.5-5.1) 3.7 mmol/L (3.5-5.1) Chloride Level 105 mmol/L (98-107) 104 mmol/L (98-107) Carbon Dioxide Level 27 mmol/L (21-32) 25 mmol/L (21-32) Anion Gap 6 (6-14) 10 (6-14) Blood Urea Nitrogen 13 mg/dL (8-26) 14 mg/dL (8-26) Creatinine 1.4 mg/dL (0.7-1.3) 1.2 mg/dL (0.7-1.3) Estimated GFR (Cockcroft-Gault) 61.2 73.1 BUN/Creatinine Ratio 9 (6-20) Glucose Level 110 mg/dL (70-99) 139 mg/dL (70-99) Calcium Level 9.2 mg/dL (8.5-10.1) 8.6 mg/dL (8.5-10.1) Magnesium Level 2.0 mg/dL (1.8-2.4) Total Bilirubin 0.6 mg/dL (0.2-1.0) Aspartate Amino Transf (AST/SGOT) 12 U/L (15-37) Alanine Aminotransferase (ALT/SGPT) 30 U/L (16-63) Alkaline Phosphatase 74 U/L (46-116) Troponin I Quantitative 0.022 ng/mL (0.000-0.055) LA-Gbf-A-Type Natriuretic Peptide 98 pg/mL (0-124) Total Protein 8.5 g/dL (6.4-8.2) Albumin 4.1 g/dL (3.4-5.0) Albumin/Globulin Ratio 0.9 (1.0-1.7) Lipase 122 U/L (73-393) SARS-CoV-2 Antigen (Rapid) Negative (NEGATIVE) Segmented Neutrophils % 89 % (35-66) Lymphocytes % 3 % (24-48) Monocytes % 8 % (0-10) Platelet Estimate Adequate (ADEQUATE) Large Platelets Occ Problem List Problems Medical Problems: (1) Acute cholecystitis Status: Acute Assessment/Plan s/p teresa ok to dc if tolerating low fat diet Fu 2 weeks Justicifation of Admission Dx: Justifications for Admission: Justification of Admission Dx: No LAUREN BECKHAM APRN Dec 21, 2020 09:52
[2020-12-21] MEDS ORDERED: OXYC1TAB15 PO (09:53)
[2020-12-21 10:54] VITALS: BP 131/57
[2020-12-21] MEDS: ASPIRIN CHEWABLE 81 MG TABLET. PO SCH (10:57)
[2020-12-21] MEDS: SENNOSIDES/DOCUSATE 8.6/50MG TABLET. PO SCH (10:58)
[2020-12-21] MEDS: LACTOBACILLUS RHAMNOSUS GG 1 CAPSULE. PO SCH (10:58)
[2020-12-21] MEDS: PANTOPRAZOLE 40 MG TABLET.DR. PO SCH (10:58)
[2020-12-21] MEDS: POTASSIUM CHLORIDE 20 MEQ TABLET.ER. PO SCH (10:59)
[2020-12-21] MEDS: FUROSEMIDE 40 MG TABLET. PO SCH (10:59)
[2020-12-21] MEDS: LISINOPRIL 20 MG TABLET PO SCH (11:00)
[2020-12-21] MEDS: amLODIPine BESYLATE 10 MG TABLET PO SCH (11:00)
[2020-12-21 15:00] VITALS: BP 124/54
--- NOTE | 2020-12-21 17:01 | NUR ---
SW following for discharge planning. Spoke with RN and reviewed chart. Discharge plan remains home, self-care. Diet advanced to GI soft. Pt on room air. Possible discharge tomorrow, 12/22. No anticipated SW needs on discharge. Addendum: 12/21/20 at 1704 by NATHANAEL MILTON SW Pt discharged home today, 12/21 self-care. No SW needs.
--- NOTE | 2020-12-21 18:00 | NUR ---
pt was discahrged home with self care. was given instructions on his wound care, his pain was sent electronically to his [facility] and I called to dbl check that it was there for him. he was picked up from the main entrance. Bryce Arredondo RN
--- NOTE | 2020-12-22 17:13 | PATHOLOGY ---
[facility] Accession Number: [id number] . 01 Material submitted: . gallbladder - GALLBLADDER AND CONTENTS . 01 Clinical history: . ACUTE CHOLECYSTITIS . 02 Diagnosis: Gallbladder, laparoscopic cholecystectomy: - Acute and marked chronic cholecystitis with increased eosinophils. LBQ 12/22/2020 1523 Local . 02 Comment: There are no calculi identified within the gallbladder lumen or specimen container. There is no evidence of malignancy. (JPM/db; 12/22/2020) . 02 Electronically signed: . Corky Mahoney MD, Pathologist NPI- [id number] . 01 Gross description: . . The specimen is received in formalin labeled "[place], gallbladder and contents" and consists of an intact purple michelle dusky gallbladder measuring 11.5 x 3.9 x 3.5 cm. The margin is inked black. Opening reveals a lumen filled with mucoid brown fluid and no calculi. The mucosa is hemorrhagic pink-michelle to brown and irregular with an average wall thickness of 0.4 cm. No masses are identified. [place] [employer] sections are submitted in A1-A2. (SDY; 12/21/2020) SYU/SYU 12/21/2020 1421 Local . 02 Pathologist provided ICD-10: K81.2 . 02 CPT . 076366 Specimen Comment: A courtesy copy of this report has been sent to [phone], [phone] Specimen Comment: [id number], , Specimen Comment: Report sent to ,DR NAVA,DR BRUNO / DR HUSSEIN Performed at: 01 [facility] [address], [place] [address] MD Sachin Aguillon MD Phone: [phone] Performed at: [address] [id number] MD Corky Mahoney MD Phone: [phone]
--- NOTE | 2020-12-23 16:58 | PDOC3 ---
[facility]-Discharge Summary Date of Admission: Date of Admission: Dec 19, 2020 Date of Discharge: Date of Discharge: Dec 21, 2020 Discharge Diagnosis: Discharge Diagnosis: Acute cholecystitis on-call to the OR for cholecystectomy Leukocytosis Essential hypertension GERD Hospital Course: Hospital Course: 65-year-old gentleman with past medical history of hypertension GERD who was in his usual state of health until the morning of admission when he presented severe epigastric pain 10 out of 10 intensity over the epigastric area. The patient also complained of left flank pain with no urinary symptoms no hematuria reported. He was evaluated in the emergency department and found to have a distended gallbladder. Patient is now presenting acute abdomen signs he denies any fever or diaphoresis no recent sick contacts no dietary transgressions have been reported. Due to the progressive nature and intensity of his pain he decided to come to the emergency department for evaluation. At the time my evaluation he is in no acute distress he denies any headache no recent upper respiratory tract infection symptoms no chest pain no palpitations no shortness of breath no dyspnea diaphoresis no nausea or vomiting has been reported no diarrhea either. Taken to OR for laparoscopic cholecystectomy. Tolerated procedure well without any postoperative complications. Ambulating, pain was well controlled, and tolerating diet. The rest of the hospital course was uneventful. Disposition: Disposition/Orders: D/C to Home Activity: Activity: Resume previous activity Diet: Diet: Regular Medications: Home Meds Active Scripts Oxycodone/Apap 5-325 (PERCOCET 5-325 MG TABLET ) 1 Each Tablet, 1 TAB PO PRN Q4HRS PRN for MODERATE PAIN, #30 TAB 0 Refills Prov:LAUREN BECKHAM VISUAL MERCHANDISING SPECIALIST 12/21/20 Reported Medications Lisinopril (LISINOPRIL) 20 Mg Tablet, 1 TAB PO DAILY for htn, #30 TAB 5 Refills 11/22/20 Dexlansoprazole (DEXILANT) 60 Mg Steven., 1 CAP PO DAILY for gerd for 30 Days, #30 CAP 0 Refills 11/21/20 Acetaminophen (TYLENOL EXTRA STRENGTH) 500 Mg Tablet, 500 MG PO PRN Q6HRS PRN for HEADACHE, TAB 11/21/20 Amlodipine Besylate (AMLODIPINE BESYLATE) 10 Mg Tablet, 10 MG PO DAILY for blood pressure, TAB 08/11/20 Atorvastatin Calcium (ATORVASTATIN CALCIUM) 80 Mg Tablet, 80 MG PO HS for FOR CHOLESTEROL, #30 TAB 0 Refills 04/22/17 Furosemide (LASIX) 40 Mg Tablet, 1 TAB PO DAILY, #90 TAB 1 Refill 04/22/17 Potassium Chloride (POTASSIUM CHLORIDE ) 20 Meq Tablet.er, 20 MEQ PO DAILY, TAB.SR 04/22/17 Aspirin (ASPIRIN) 81 Mg Tab.chew, 1 TAB PO DAILY, #30 TAB 3 Refills 07/16/14 Tamsulosin Hcl (TAMSULOSIN HCL) 0.4 Mg Cap.er.24h, 1 CAP PO HS for , #30 CAP 5 Refills 07/16/14 Scheduled Amlodipine Besylate (Amlodipine Besylate), 10 MG PO DAILY, (Reported) Aspirin (Aspirin), 1 TAB PO DAILY, (Reported) Atorvastatin Calcium (Atorvastatin Calcium), 80 MG PO HS, (Reported) Dexlansoprazole (Dexilant), 1 CAP PO DAILY, (Reported) Furosemide (Lasix), 1 TAB PO DAILY, (Reported) Lisinopril (Lisinopril), 1 TAB PO DAILY, (Reported) Potassium Chloride (Potassium Chloride ), 20 MEQ PO DAILY, (Reported) Tamsulosin Hcl (Tamsulosin Hcl), 1 CAP PO HS, (Reported) Scheduled PRN Acetaminophen (Tylenol Extra Strength), 500 MG PO PRN Q6HRS PRN for HEADACHE, (Reported) Oxycodone/Apap 5-325 (Percocet 5-325 Mg Tablet ), 1 TAB PO PRN Q4HRS PRN for MODERATE PAIN Total Time: Total Time: Total time spent was 35 minutes in preparing scripts, discharge planning with SW and RN, and preparing this discharge summary. Patient seen and examined on day of discharge. Justicifation of Admission Dx: Justifications for Admission: Justification of Admission Dx: MIGUEL Maria MD Dec 23, 2020 16:58
== END 2020-12-21 15:15 | disposition home or self-care (01) ==
LOC: ER 13:30 → 5 NORTH 17:41 → INTOOBSV 17:41
PROVIDERS: ADMIT Internal Medicine; ATTEND Internal Medicine
DX: K81.0 Acute cholecystitis (principal); Z20.822 Contact with and (suspected) exposure to COVID-19; I11.0 Hypertensive heart disease with heart failure; I50.9 Heart failure, unspecified; K21.9 Gastro-esophageal reflux disease without esophagitis; I25.10 Atherosclerotic heart disease of native coronary artery without angina pectoris; I27.20 Pulmonary hypertension, unspecified; K76.0 Fatty (change of) liver, not elsewhere classified; D72.829 Elevated white blood cell count, unspecified; E11.9 Type 2 diabetes mellitus without complications; I05.0 Rheumatic mitral stenosis; G47.30 Sleep apnea, unspecified; M10.9 Gout, unspecified; M48.061 Spinal stenosis, lumbar region without neurogenic claudication; N40.1 Benign prostatic hyperplasia with lower urinary tract symptoms; Z79.82 Long term (current) use of aspirin
CPT/HCPCS: 36415; 47563; 74176; 74300; 76705; 80048; 80053; 81001; 83690; 83735; 83880; 84484; 85007; 85025; 87426; 88304; 93005; 96361; 96365; 96366; 96372; 96375; 96376; 99285; G0378; J1100; J1650; J1885; J2270; J2405; J2543; J2704; J2710; J3010; J3490; J7120; Q9967; U0003; G0379

== ENCOUNTER 2021-02-16 20:04 | Observation (INO) | payer MEDICARE ==
[~2021-02-16] VITALS: Ht 172.7 cm; Wt 100.9 kg
[~2021-02-16 20:04] MED LIST changes: +OXYC1TAB15 PO
--- NOTE | 2021-02-16 20:36 | PHYS DOC ---
Past Medical History Past Medical History: Diabetes-Type II, GERD, Hypertension Additional Past Medical Histor: urinary retention, SLEEP APNEA, GOUT, BPH, Past Surgical History: Cholecystectomy, Other Additional Past Surgical Histo: cardiac cath Smoking Status: Never Smoker Alcohol Use: Occasionally Drug Use: None General Adult EDM: Chief Complaint: CHEST PAIN HPI: HPI: 65-year-old male past medical history significant for diabetes, CAD w/2 JULIETA (2017 last cath) , hypertension, GERD and HFrEF (45%) presents the ED with complaints of left sided midaxillary mid thoracic pain described as "pins, heavy pressure, sore and goes numb," that radiates to left anterior chest and into his left armpit for the past week. Patient states has been constant all day and "I don't know what it is." Denies any history of Covid and is pending a second vaccine on Sunday. Denies any tobacco use or cocaine abuse. No personal or family history of AAA, AAD, CTD ([place] or marfans), cardiac arrhythmias (need for AICD), sudden or unexplainable (under 50 years of age or with exertion), or clotting disorders. No FH of CAD. Reports headaches every night for the past 3 nights but currently does not have any headache. Review of Systems: Review of Systems: Constitutional: Denies fever or chills. [] Eyes: Denies change in visual acuity. [] HENT: Denies nasal congestion or sore throat. [] Respiratory: Denies cough or shortness of breath or hemoptysis Cardiovascular: Denies syncope or edema. [] GI: Denies abdominal pain, nausea, vomiting, bloody stools or diarrhea. [] : Denies dysuria or hematuria Musculoskeletal: Denies back pain or joint pain or unilateral leg swelling Integument: Denies rash or diaphoresis Neurologic: Denies headache, focal weakness or sensory changes. [] Endocrine: Denies polyuria or polydipsia. [] Lymphatic: Denies swollen glands. [] Psychiatric: Denies depression or anxiety. [] Heart Score: C/O Chest Pain: Yes HEART Score for Chest Pain: HEART Score for Chest Pain Response (Comments) Value History Slighlty/Non-Suspicious 0 ECG Normal 0 Age > 65 2 Risk Factors >3 Risk Factors or Hx CAD 2 Troponin < Normal Limit 0 Total 4 Risk Factors: Risk Factors: DM, Current or recent (<one month) smoker, HTN, HLP, family history of CAD, obesity. Risk Scores: Score 0 - 3: 2.5% MACE over next 6 weeks - Discharge Home Score 4 - 6: 20.3% MACE over next 6 weeks - Admit for Clinical Observation Score 7 - 10: 72.7% MACE over next 6 weeks - Early Invasive Strategies Allergies: Allergies: Allergies Coded Allergies Type Severity Reaction Last Updated Verified No Known Drug Allergies 12/20/20 No Physical Exam: PE: Constitutional: Well developed, well nourished, no acute distress, non-toxic appearance. HENT: Normocephalic, atraumatic, Eyes: EOMI, conjunctiva normal, no discharge. Neck: Normal range of motion, supple, Cardiovascular: S1/2 present, regular rhythm Lungs & Thorax: Speaking in full sentences, bilateral equal chest rise, no tachypnea or increased work of breathing Abdomen: soft, no tenderness, Skin: Warm, dry, no erythema, no rash. [] Back: No tenderness, no CVA tenderness. [] Extremities: No tenderness, no cyanosis, no lower extremity edema Neurologic: Alert and oriented X 3, normal motor function, normal sensory function, no focal deficits noted. [] Psychologic: Affect normal, judgement normal, mood normal. [] Current Patient Data: Vital Signs: Vital Signs Date Time Temp Pulse Resp B/P (MAP) Pulse Ox O2 Delivery O2 Flow Rate FiO2 02/16/21 20:09 98.0 70 18 179/80 (113) 99 Room Air 98.0 EKG: EKG: Sinus rhythm 73 bpm, no axis deviation, normal intervals, T wave inversion lead III, no ST elevations or ST depressions Radiology/Procedures: Radiology/Procedures: IMAGING REPORT Signed PATIENT: KEYON GREEN ACCOUNT: [id number] : 1955 LOCATION: ER AGE: 65 SEX: M EXAM STATUS: REG ER ORD. PHYSICIAN: JANETH JOHNSON DO REASON: cp PROCEDURE: PORTABLE CHEST 1V Study: XR CHEST 1V Indication: Chest pain. Comparison: 11/20/2020 Findings: Within normal limits/unchanged cardiomediastinal silhouette and trang. No localized airspace opacity, pleural effusion or pneumothorax. Impression: No acute radiographic abnormality of the chest. No relevant change from the 11/20/2020 comparison. Electronically signed by: VALERIE MCINTOSH MD (02/16/2021 9:16 PM) [facility] DICTATED and SIGNED BY: VALERIE MCINTOSH MD DATE: 02/16/21 [id number] 0 Course & Med Decision Making: Course & Med Decision Making Pertinent Labs and Imaging studies reviewed. (See chart for details) Zurn for chest pain in a moderate risk patient for mace. Troponin still within normal limits but elevated from prior. Will admit for further medical manag ement and cardiology consultation. Patient stable at time of admission and agrees with this plan. I have spoken with the patient and/or caregivers. I have explained the patient's condition, diagnosis and treatment plan based on the information available to me at this time. I have answered the patient's and/or caregivers questions and answered any concerns. The patient and/or caregivers have as good an understanding of the patient's diagnosis, condition and treatment plan as can be expected at this point. The patient has been stabilized within the capability of the emergency department. The patient will be transported for further care and management or will be moved to an observation or inpatient service. I have communicated with the staff or medical practitioner taking over this patient's care. Elias Disclaimer: Elias Disclaimer: This electronic medical record was generated, in whole or in part, using a voice recognition dictation system. Departure Departure Impression: Primary Impression: Chest pain Disposition: ADMITTED INPT THIS HOSP Admitting Physician: DIONI Condition: STABLE Referrals: IGOR BRUNO MD (PCP) JANETH JOHNSON DO Feb 16, 2021 20:36
[2021-02-16 20:55] LABS: BASO % 1 % (0-3); EOS # 0.4 x10^3/uL (0.0-0.7); EOS % 5 % (0-3); HEMATOCRIT 39.4 % (39.0-53.0); HEMOGLOBIN 13.1 g/dL (13.0-17.5); LYMPH # 1.5 x10^3/uL (1.0-4.8); LYMPH % 21 % (24-48); MEAN CORPUSCULAR HEMOGLOBIN 30 pg (25-35); MEAN CORPUSCULAR HGB CONC 33 g/dL (31-37); MEAN CORPUSCULAR VOLUME 90 fL (79-100); MONO # 0.5 x10^3/uL (0.0-1.1); MONO % 7 % (0-9); NEUT # 4.8 x10^3/uL (1.8-7.7); NEUT % 66 % (31-73); PLATELET COUNT 144 x10^3/uL (140-400); RED BLOOD COUNT 4.37 x10^6/uL (4.30-5.70); RED CELL DISTRIBUTION WIDTH 13.6 % (11.5-14.5); WHITE BLOOD COUNT 7.3 x10^3/uL (4.0-11.0)
[2021-02-16 21:05] LABS: CALCIUM 8.7 mg/dL (8.5-10.1); CREATININE 1.1 mg/dL (0.7-1.3); GFR 80.8
[2021-02-16 21:11] LABS: ALBUMIN 3.8 g/dL (3.4-5.0); ALBUMIN/GLOBULIN RATIO 1.1 (1.0-1.7); MAGNESIUM 1.9 mg/dL (1.8-2.4); TOTAL BILIRUBIN 0.5 mg/dL (0.2-1.0); TOTAL PROTEIN 7.4 g/dL (6.4-8.2)
--- NOTE | 2021-02-16 21:18 | RAD ---
Study: XR CHEST 1V Indication: Chest pain. Comparison: 11/20/2020 Findings: Within normal limits/unchanged cardiomediastinal silhouette and trang. No localized airspace opacity, pleural effusion or pneumothorax. Impression: No acute radiographic abnormality of the chest. No relevant change from the 11/20/2020 comparison. Electronically signed by: VALERIE MICNTOSH MD (02/16/2021 9:16 PM) [facility]
--- NOTE | 2021-02-16 21:19 | EKG ---
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
[2021-02-16 23:20] VITALS: BP 181/82
[2021-02-17 03:00] VITALS: BP 175/75
[2021-02-17 06:18] LABS: CALCIUM 8.7 mg/dL (8.5-10.1); CREATININE 0.9 mg/dL (0.7-1.3); GFR 101.8; POTASSIUM 3.9 mmol/L (3.5-5.1)
[2021-02-17 07:30] VITALS: BP 145/78
--- NOTE | 2021-02-17 08:49 | PDOC1 ---
History and Physical Date of Admission Date of Admission DATE: 02/17/21 TIME: 08:49 Identification/Chief Complaint Chief Complaint CHEST PAIN History of Present Illness History of Present Illness 65-year-old male past medical history significant for diabetes, CAD w/2 JULIETA ( 2017 last cath) , hypertension, GERD and HFrEF (45%) presents the ED with complaints of left sided midaxillary mid thoracic pain described as "pins, heavy pressure, sore and goes numb," that radiates to left anterior chest and into his left armpit for the past week. Patient states has been constant all day , TROPONIN I neg x 3 since admit, will plan d/c of ok with cardiology Past Medical History Past Medical History Past Medical History Past Medical History: Diabetes-Type II, GERD, Hypertension Additional Past Medical Histor: urinary retention, SLEEP APNEA, GOUT, BPH, Past Surgical History: Cholecystectomy, Other Additional Past Surgical Histo: cardiac cath Smoking Status: Never Smoker Alcohol Use: Occasionally Drug Use: None FHX OBESITY Cardiovascular: CAD, CHF, HTN, Mitral valve stenosis, Valve insufficiency, Pulmonary hypertension Pulmonary: Other CENTRAL NERVOUS SYSTEM: Other GI: GERD, Other Heme/Onc: No pertinent hx Hepatobiliary: No pertinent hx Psych: No pertinent hx Musculoskeletal: Osteoarthritis Infectious disease: No pertinent hx Renal/: Benign prostatic enlarg. Endocrine: Diabetes Past Surgical History Past Surgical History: No pertinent history Family History Family History: Coronary Artery Disease, High Cholestrol, Hypertension Social History Smoke: No ALCOHOL: none Drugs: None Current Medications Current Medications Active Scripts Active Percocet 5-325 Mg Tablet (Oxycodone/Acetaminophen) 1 Each Tablet 1 Tab PO PRN Q4HRS PRN Reported Lisinopril 20 Mg Tablet 1 Tab PO DAILY Dexilant (Dexlansoprazole) 60 Mg Cap.drRupalmp 1 Cap PO DAILY 30 Days Tylenol Extra Strength (Acetaminophen) 500 Mg Tablet 500 Mg PO PRN Q6HRS PRN Amlodipine Besylate 10 Mg Tablet 10 Mg PO DAILY Atorvastatin Calcium 80 Mg Tablet 80 Mg PO HS Lasix (Furosemide) 40 Mg Tablet 1 Tab PO DAILY Potassium Chloride (Potassium Chloride) 20 Meq Tablet.er 20 Meq PO DAILY Aspirin 81 Mg Tab.chew 1 Tab PO DAILY Tamsulosin Hcl 0.4 Mg Cap.er.24h 1 Cap PO HS Allergies Allergies: Coded Allergies: No Known Drug Allergies (Unverified , 12/20/20) ROS General: No: Chills, Night Sweats, Fatigue, Malaise, Appetite, Other PSYCHOLOGICAL ROS: No: Anxiety, Behavioral Disorder, Concentration difficultie, Decreased libido, Depression, Disorientation, Hallucinations, Hostility, Irritablity, Memory difficulties, Mood Swings, Obsessive thoughts, Physical abuse, Sexual abuse, Sleep disturbances, Suicidal ideation, Other Eyes: No Blurry vision, No Decreased vision, No Double vision, No Dry eyes, No Excessive tearing, No Eye Pain, No Itchy Eyes, No Loss of vision, No Photophobia, No Scotomata, No Uses contacts, No Uses glasses, No Other HEENT: No: Heacaches, Visual Changes, Hearing change, Nasal congestion, Nasal discharge, Oral lesions, Sinus pain, Sore Throat, Epistaxis, Sneezing, Snoring, Tinnitus, Vertigo, Vocal changes, Other ALLERGY AND IMMUNOLOGY: No: Hives, Insect Bite Sensitivity, Itchy/Watery Eyes, Nasal Congestion, Post Nasal Drip, Seasonal Allergies, Other Hematological and Lymphatic: No: Bleeding Problems, Blood Clots, Blood Transfusions, Brusing, Night Sweats, Pallor, Swollen Lymph Nodes, Other ENDOCRINE: No: Breast Changes, Galactorrhea, Hair Pattern Changes, Hot Flashes, Malaise/lethargy, Mood Swings, Palpitations, Polydipsia/polyuria, Skin Changes, Temperature Intolerance, Unexpected Weight Changes, Other Breast: No New/Changing Breast Lumps, No Nipple changes, No Nipple discharge, No Other Respiratory: No: Cough, Hemoptysis, Orthopnea, Pleuritic Pain, Shortness of breath, SOB with excertion, Sputum Changes, Stridor, Tachypnea, Wheezing, Other Cardiovascular: yes Chest Pain; No Palpitations, No Orthopnea, No Paroxysmal Noc. Dyspnea, No Edema, No Lt Headedness, No Other Gastrointestinal: No Nausea, No Vomiting, No Abdominal Pain, No Diarrhea, No Constipation, No Melena, No Hematochezia, No Other Genitourinary: No Dysuria, No Frequency, No Incontinence, No Hematuria, No Retention, No Discharge, No Urgency, No Pain, No Flank Pain, No Other, No , No , No , No , No , No , No Musculoskeletal: Yes Joint Stiffness; No Gait Disturbance, No Joint Pain, No Joint Swelling, No Muscle Pain, No Muscular Weakness, No Pain In:, No Swelling In:, No Other Neurological: No Behavorial Changes, No Bowel/Bladder ControlChng, No Confusion, No Dizziness, No Gait Disturbance, No Headaches, No Impaired Coord/balance, No Memory Loss, No Numbness/Tingling, No Seizures, No Speech Problems, No Tremors, No Visual Changes, No Weakness, No Other Skin: No Dry Skin, No Eczema, No Hair Changes, No Lumps, No Mole Changes, No Mottling, No Nail Changes, No Pruritus, No Rash, No Skin Lesion Changes, No Other, No Acne Physical Exam General: Alert, Oriented X3, Cooperative, No acute distress HEENT: Atraumatic, PERRLA Lungs: Clear to auscultation, Normal air movement Heart: S1S2, RRR, no thrills, no gallops Breasts: Not examined Abdomen: Normal bowel sounds, Soft Rectal Exam: not examined Extremities: No cyanosis Neuro: Normal speech, Strength at 5/5 X4 ext, Cranial nerves 3-12 NL Psych/Mental Status: Mental status NL, Mood NL Vitals Vitals Vital Signs Date Time Temp Pulse Resp B/P (MAP) Pulse Ox O2 Delivery O2 Flow Rate FiO2 02/17/21 07:30 98.2 56 20 145/78 (100) 97 Room Air 98.2 Labs Labs Laboratory Tests Test 02/16/21 20:23 02/16/21 23:40 02/17/21 05:00 White Blood Count 7.3 x10^3/uL (4.0-11.0) Red Blood Count 4.37 x10^6/uL (4.30-5.70) Hemoglobin 13.1 g/dL (13.0-17.5) Hematocrit 39.4 % (39.0-53.0) Mean Corpuscular Volume 90 fL (79-100) Mean Corpuscular Hemoglobin 30 pg (25-35) Mean Corpuscular Hemoglobin Concent 33 g/dL (31-37) Red Cell Distribution Width 13.6 % (11.5-14.5) Platelet Count 144 x10^3/uL (140-400) Neutrophils (%) (Auto) 66 % (31-73) Lymphocytes (%) (Auto) 21 % (24-48) Monocytes (%) (Auto) 7 % (0-9) Eosinophils (%) (Auto) 5 % (0-3) Basophils (%) (Auto) 1 % (0-3) Neutrophils # (Auto) 4.8 x10^3/uL (1.8-7.7) Lymphocytes # (Auto) 1.5 x10^3/uL (1.0-4.8) Monocytes # (Auto) 0.5 x10^3/uL (0.0-1.1) Eosinophils # (Auto) 0.4 x10^3/uL (0.0-0.7) Basophils # (Auto) 0.0 x10^3/uL (0.0-0.2) Sodium Level 140 mmol/L (136-145) 140 mmol/L (136-145) Potassium Level 4.0 mmol/L (3.5-5.1) 3.9 mmol/L (3.5-5.1) Chloride Level 102 mmol/L (98-107) 104 mmol/L (98-107) Carbon Dioxide Level 26 mmol/L (21-32) 27 mmol/L (21-32) Anion Gap 12 (6-14) 9 (6-14) Blood Urea Nitrogen 12 mg/dL (8-26) 10 mg/dL (8-26) Creatinine 1.1 mg/dL (0.7-1.3) 0.9 mg/dL (0.7-1.3) Estimated GFR (Cockcroft-Gault) 80.8 101.8 BUN/Creatinine Ratio 11 (6-20) Glucose Level 134 mg/dL (70-99) 89 mg/dL (70-99) Calcium Level 8.7 mg/dL (8.5-10.1) 8.7 mg/dL (8.5-10.1) Magnesium Level 1.9 mg/dL (1.8-2.4) Total Bilirubin 0.5 mg/dL (0.2-1.0) Aspartate Amino Transf (AST/SGOT) 54 U/L (15-37) Alanine Aminotransferase (ALT/SGPT) 92 U/L (16-63) Alkaline Phosphatase 71 U/L (46-116) Troponin I Quantitative 0.034 ng/mL (0.000-0.055) 0.026 ng/mL (0.000-0.055) 0.035 ng/mL (0.000-0.055) MO-Rgz-C-Type Natriuretic Peptide 93 pg/mL (0-124) Total Protein 7.4 g/dL (6.4-8.2) Albumin 3.8 g/dL (3.4-5.0) Albumin/Globulin Ratio 1.1 (1.0-1.7) Lipase 145 U/L (73-393) Laboratory Tests Test 02/16/21 20:23 02/16/21 23:40 02/17/21 05:00 White Blood Count 7.3 x10^3/uL (4.0-11.0) Red Blood Count 4.37 x10^6/uL (4.30-5.70) Hemoglobin 13.1 g/dL (13.0-17.5) Hematocrit 39.4 % (39.0-53.0) Mean Corpuscular Volume 90 fL (79-100) Mean Corpuscular Hemoglobin 30 pg (25-35) Mean Corpuscular Hemoglobin Concent 33 g/dL (31-37) Red Cell Distribution Width 13.6 % (11.5-14.5) Platelet Count 144 x10^3/uL (140-400) Neutrophils (%) (Auto) 66 % (31-73) Lymphocytes (%) (Auto) 21 % (24-48) Monocytes (%) (Auto) 7 % (0-9) Eosinophils (%) (Auto) 5 % (0-3) Basophils (%) (Auto) 1 % (0-3) Neutrophils # (Auto) 4.8 x10^3/uL (1.8-7.7) Lymphocytes # (Auto) 1.5 x10^3/uL (1.0-4.8) Monocytes # (Auto) 0.5 x10^3/uL (0.0-1.1) Eosinophils # (Auto) 0.4 x10^3/uL (0.0-0.7) Basophils # (Auto) 0.0 x10^3/uL (0.0-0.2) Sodium Level 140 mmol/L (136-145) 140 mmol/L (136-145) Potassium Level 4.0 mmol/L (3.5-5.1) 3.9 mmol/L (3.5-5.1) Chloride Level 102 mmol/L (98-107) 104 mmol/L (98-107) Carbon Dioxide Level 26 mmol/L (21-32) 27 mmol/L (21-32) Anion Gap 12 (6-14) 9 (6-14) Blood Urea Nitrogen 12 mg/dL (8-26) 10 mg/dL (8-26) Creatinine 1.1 mg/dL (0.7-1.3) 0.9 mg/dL (0.7-1.3) Estimated GFR (Cockcroft-Gault) 80.8 101.8 BUN/Creatinine Ratio 11 (6-20) Glucose Level 134 mg/dL (70-99) 89 mg/dL (70-99) Calcium Level 8.7 mg/dL (8.5-10.1) 8.7 mg/dL (8.5-10.1) Magnesium Level 1.9 mg/dL (1.8-2.4) Total Bilirubin 0.5 mg/dL (0.2-1.0) Aspartate Amino Transf (AST/SGOT) 54 U/L (15-37) Alanine Aminotransferase (ALT/SGPT) 92 U/L (16-63) Alkaline Phosphatase 71 U/L (46-116) Troponin I Quantitative 0.034 ng/mL (0.000-0.055) 0.026 ng/mL (0.000-0.055) 0.035 ng/mL (0.000-0.055) OH-Qhm-L-Type Natriuretic Peptide 93 pg/mL (0-124) Total Protein 7.4 g/dL (6.4-8.2) Albumin 3.8 g/dL (3.4-5.0) Albumin/Globulin Ratio 1.1 (1.0-1.7) Lipase 145 U/L (73-393) Images Images PROCEDURE NARRATIVE Clinical information: 65 y.o male presenting with unstable angina. Informed consent: Written informed consent was obtained from the patient after adequate discussion of the risks and benefits of the procedure. Procedure details: ACCESS: The right wrist was prepped and draped in usual sterile fashion. Under 1% lidocaine local anesthesia a 6 English Terumo sheath was placed in the right radial artery via the Seldinger technique. DIAGNOSTIC ANGIOGRAPHY: Right and left coronary arteries were engaged with a 6 English TIG catheter. Diagnostic angiography in multiple views were obtained. All catheters were exchanged over J-tip guidewire. FINDINGS: ======= Aorta: 150/90 Coronary angiography: LM: Large caliber vessel with normal angiographic appearance LAD: Large caliber vessel with mild luminal irregularities. D1: Small caliber vessel with normal angiographic appearance LCX: Moderate caliber non-dominant vessel with mild luminal irregularities OM1: Moderate caliber vessel with patent previously placed overlapping stents. RCA: Large caliber dominant vessel with a mid 40% stenosis. RPDA: Moderate caliber vessel with mild luminal irregularities. CLOSURE: At case completion the right radial sheath was removed and a Terumo radial band was applied with 11 mL of air. Hemostasis was achieved. COMPLICATIONS: No acute complications noted Conclusion 1. One vessel CAD with patent OM1 stents. No signficant change compared to 2017. Recommendations Aggressive Medical Therapy Signed by : Batsheva Goldman, Electronically Approved : 11/22/2020 10:42:27 DICTATED and SIGNED BY: BATSHEVA GOLDMAN MD DATE: 11/22/20 [id number] 0 Mitral Valve MV E Velocity 75.0cm/s MV DECEL TIME 170ms MV A Velocity 82.6cm/s E/A Ratio 0.9 Tricuspid Valve TR P. Velocity 244cm/s RAP ESTIMATE 3mmHg TR Peak Gr. 24mmHg RVSP 27mmHg Pulmonary Vein S1 Velocity 57.5cm/s D2 Velocity 37.3cm/s LEFT VENTRICLE The left ventricle is normal size. There is normal left ventricular wall thickness. The left ventricular systolic function is mildly reduced. The Ejection Fraction is 45-50%. There is mild global hypokinesis of the left ventricle. Transmitral Doppler flow pattern is Grade I-abnormal relaxation pattern. RIGHT VENTRICLE The right ventricle is normal size. The right ventricular systolic function is normal. ATRIA The left atrium is mildly dilated. Dilated coronary sinus is observed. The right atrium size is normal. The interatrial septum is intact with no evidence for an atrial septal defect or patent foramen ovale as noted on 2-D or Doppler imaging. AORTIC VALVE The aortic valve is calcified but opens well. Doppler and Color Flow revealed no significant aortic regurgitation. There is no significant aortic valvular stenosis. MITRAL VALVE The mitral valve is thickened but opens well. There is no evidence of mitral valve prolapse. There is no mitral valve stenosis. Doppler and Color-flow revealed trace mitral regurgitation. TRICUSPID VALVE The tricuspid valve is normal in structure and function. Doppler and Color Flow revealed trace tricuspid regurgitation. The PA pressure was estimated at 27 mmHg. There is no tricuspid valve stenosis. PULMONIC VALVE The pulmonic valve is not well visualized. Doppler and Color Flow revealed trace to mild pulmonic valvular regurgitation. There is no pulmonic valvular stenosis. GREAT VESSELS The aortic root is normal in size. The ascending aorta is normal in size. The IVC is normal in size and collapses >50% with inspiration. PERICARDIAL EFFUSION There is no evidence of significant pericardial effusion. Critical Notification Critical Value: No <Conclusion> The left ventricular systolic function is mildly reduced. The Ejection Fraction is 45-50%. There is mild global hypokinesis of the left ventricle. Doppler and Color Flow revealed trace to mild pulmonic valvular regurgitation. Signed by : Batsheva Goldman, Electronically Approved : 08/11/2020 14:01:08 DICTATED and SIGNED BY: BATSHEVA GOLDMAN MD DATE: 08/11/20 1317 VTE Prophylaxis Ordered VTE Prophylaxis Devices: No VTE Pharmacological Prophylaxi: Yes Assessment/Plan Assessment/Plan IMPRESSION ANGINA Essential hypertension GERD One vessel CAD with patent OM1 stents. No signficant change compared to 12-02 cath sleep apnea diabetes plan admit cvc bed consult cardiology trend troponin i echo dvt prophylaxis ss insulin home meds D/W RN Justifications for Admission Other Justification VICTOR M SWEENEY MD Feb 17, 2021 08:49
[2021-02-17] MEDS ORDERED: oxyCODONE/APAP 5/325 1 TAB TABLET PO PRN (09:15)
[2021-02-17] MEDS ORDERED: ACETAMINOPHEN 500 MG TABLET PO PRN (09:15)
[2021-02-17] MEDS ORDERED: LISINOPRIL 20 MG TABLET PO SCH (10:00)
[2021-02-17] MEDS ORDERED: amLODIPine BESYLATE 10 MG TABLET PO SCH (10:00)
[2021-02-17] MEDS ORDERED: POTASSIUM CHLORIDE 20 MEQ TABLET.ER. PO SCH (10:00)
[2021-02-17] MEDS ORDERED: ASPIRIN CHEWABLE 81 MG TABLET. PO SCH (10:00)
[2021-02-17] MEDS ORDERED: FUROSEMIDE 40 MG TABLET. PO SCH (10:00)
[2021-02-17 11:01] VITALS: BP 136/79
[2021-02-17] MEDS ORDERED: OXYB5TAB10 PO (11:07)
[2021-02-17] MEDS ORDERED: OXYBUTYNIN CHLORIDE 5 MG TABLET PO SCH (11:30)
[2021-02-17] MEDS ORDERED: PANTOPRAZOLE 40 MG TABLET.DR. PO SCH (11:30)
[2021-02-17 11:55] LABS: BILIRUBIN,URINE NEGATIVE (NEG); CLARITY,URINE CLEAR; COLOR,URINE YELLOW; NITRITE,URINE NEGATIVE (NEG); PROTEIN,URINE NEGATIVE (NEG-TRACE)
[2021-02-17 12:03] LABS: AMPHETAMINE/METHAMPHETAMINE NEG (NEG); BARBITURATES NEG (NEG); BENZODIAZEPINES NEG (NEG); CANNABINOIDS NEG (NEG); COCAINE NEG (NEG); METHADONE NEG (NEG); OPIATES NEG (NEG); PHENCYCLIDINE NEG (NEG)
[2021-02-17 12:08] LABS: BACTERIA,URINE 0 /HPF (0-FEW); RBC,URINE 0 /HPF (0-2); WBC,URINE 0 /HPF (0-4)
--- NOTE | 2021-02-17 12:17 | PDOC2 ---
LEXIE DAN MACHINE TOOL ELECTRICIAN 02/17/21 1217: CARDIAC CONSULT DATE OF CONSULT Date of Consult DATE: 02/17/21 TIME: 12:02 REASON FOR CONSULT Reason for Consult: Chest pain REFERRING PHYSICIAN Referring Physician: [facility] SOURCE Source: Chart review, Patient HISTORY OF PRESENT ILLNESS HISTORY OF PRESENT ILLNESS This is a pleasant 65 yo male admitted for complains of chest pain. Reports that this originates with left lateral subcostal region that is like sharp and goes up to his left chest and sometimes around the left side of abd. The duration varies. He also has been having issues with burning during urination and pos sibly incomplete emptying sensation of his bladder with described dribbling after urination. No SOA, palpitations, recent falls or injury. His pain sometimes is relieved by tylenol. He recently had a LHC and his stent was patent. PAST MEDICAL HISTORY Past Medical History Cardiovascular: CAD, CHF, HTN, Pulmonary hypertension (mild) Pulmonary: Other (ROSITA with CPAP) CENTRAL NERVOUS SYSTEM: Other (No pertinent history) GI: GERD, Other (colon polyp) Heme/Onc: No pertinent hx Hepatobiliary: No pertinent hx Psych: No pertinent hx Musculoskeletal: Osteoarthritis Infectious disease: No pertinent hx ENT: No pertinent hx Renal/: Benign prostatic enlarg. Endocrine: Diabetes Dermatology: No pertinent hx PAST SURGICAL HISTORY Past Surgical History PCI/JULIETA to OM1 04/2017, Aruna moore FAMILY HISTORY Family History: Coronary Artery Disease SOCIAL HISTORY Smoke: No ALCOHOL: occassional Drugs: None Lives: with Family CURRENT MEDICATIONS CURRENT MEDICATIONS Current Medications Medications (Trade) Dose Ordered Sig/Stacey Route PRN Reason Start Time Stop Time Status Last Admin Dose Admin Amlodipine Besylate (Norvasc) 10 mg DAILY PO 02/17/21 10:00 02/17/21 11:03 Aspirin (Aspirin Chewable) 81 mg DAILY PO 02/17/21 10:00 02/17/21 11:02 Furosemide (Lasix) 40 mg DAILY PO 02/17/21 10:00 02/17/21 11:03 Lisinopril (Prinivil) 20 mg DAILY PO 02/17/21 10:00 02/17/21 11:04 Potassium Chloride (Klor-Con) 20 meq DAILY PO 02/17/21 10:00 02/17/21 11:03 Pantoprazole Sodium (Protonix) 40 mg DAILYAC PO 02/17/21 11:30 02/17/21 11:03 Oxybutynin Chloride (Ditropan) 5 mg BID PO 02/17/21 11:30 02/17/21 11:35 ALLERGIES ALLERGIES: Coded Allergies: No Known Drug Allergies (Unverified , 12/20/20) ROS Review of System 14 pint ROS evaluated with pertinent positives noted per HPI PHYSICAL EXAM General: Alert, Oriented X3, Cooperative, No acute distress HEENT: Atraumatic, Mucous membr. moist/pink Lungs: Clear to auscultation, Normal air movement Heart: Regular rate (SR), Normal S1, Normal S2, No murmurs Abdomen: Soft, No tenderness Extremities: No cyanosis, No edema Skin: No breakdown, No significant lesion Neuro: Normal speech, Sensation intact Psych/Mental Status: Mental status NL, Mood NL MUSCULOSKELETAL: Osteoarthritic changes both hands VITALS/I&O VITALS/I&O: Vital Signs Date Time Temp Pulse Resp B/P (MAP) Pulse Ox O2 Delivery O2 Flow Rate FiO2 02/17/21 11:04 65 02/17/21 11:01 98.4 20 136/79 (98) 98 Room Air 98.4 I & O 02/16/21 02/16/21 02/17/21 15:00 23:00 07:00 Intake Total 400 ml Balance 400 ml LABS Lab: Laboratory Tests Test 02/16/21 20:23 02/16/21 23:40 02/17/21 05:00 White Blood Count 7.3 x10^3/uL (4.0-11.0) Red Blood Count 4.37 x10^6/uL (4.30-5.70) Hemoglobin 13.1 g/dL (13.0-17.5) Hematocrit 39.4 % (39.0-53.0) Mean Corpuscular Volume 90 fL (79-100) Mean Corpuscular Hemoglobin 30 pg (25-35) Mean Corpuscular Hemoglobin Concent 33 g/dL (31-37) Red Cell Distribution Width 13.6 % (11.5-14.5) Platelet Count 144 x10^3/uL (140-400) Neutrophils (%) (Auto) 66 % (31-73) Lymphocytes (%) (Auto) 21 % (24-48) L Monocytes (%) (Auto) 7 % (0-9) Eosinophils (%) (Auto) 5 % (0-3) H Basophils (%) (Auto) 1 % (0-3) Neutrophils # (Auto) 4.8 x10^3/uL (1.8-7.7) Lymphocytes # (Auto) 1.5 x10^3/uL (1.0-4.8) Monocytes # (Auto) 0.5 x10^3/uL (0.0-1.1) Eosinophils # (Auto) 0.4 x10^3/uL (0.0-0.7) Basophils # (Auto) 0.0 x10^3/uL (0.0-0.2) Sodium Level 140 mmol/L (136-145) 140 mmol/L (136-145) Potassium Level 4.0 mmol/L (3.5-5.1) 3.9 mmol/L (3.5-5.1) Chloride Level 102 mmol/L (98-107) 104 mmol/L (98-107) Carbon Dioxide Level 26 mmol/L (21-32) 27 mmol/L (21-32) Anion Gap 12 (6-14) 9 (6-14) Blood Urea Nitrogen 12 mg/dL (8-26) 10 mg/dL (8-26) Creatinine 1.1 mg/dL (0.7-1.3) 0.9 mg/dL (0.7-1.3) Estimated GFR (Cockcroft-Gault) 80.8 101.8 BUN/Creatinine Ratio 11 (6-20) Glucose Level 134 mg/dL (70-99) H 89 mg/dL (70-99) Calcium Level 8.7 mg/dL (8.5-10.1) 8.7 mg/dL (8.5-10.1) Magnesium Level 1.9 mg/dL (1.8-2.4) Total Bilirubin 0.5 mg/dL (0.2-1.0) Aspartate Amino Transferase (AST) 54 U/L (15-37) H Alanine Aminotransferase (ALT) 92 U/L (16-63) H Alkaline Phosphatase 71 U/L (46-116) Troponin I Quantitative 0.034 ng/mL (0.000-0.055) 0.026 ng/mL (0.000-0.055) 0.035 ng/mL (0.000-0.055) PS-Tuf-X-Type Natriuretic Peptide 93 pg/mL (0-124) Total Protein 7.4 g/dL (6.4-8.2) Albumin 3.8 g/dL (3.4-5.0) Albumin/Globulin Ratio 1.1 (1.0-1.7) Lipase 145 U/L (73-393) Laboratory Tests 02/16/21 20:23 Laboratory Tests 02/16/21 20:23 02/17/21 05:00 ECHOCARDIOGRAM ECHOCARDIOGRAM <Conclusion> The left ventricular systolic function is mildly reduced. The Ejection Fraction is 45-50%. There is mild global hypokinesis of the left ventricle. Doppler and Color Flow revealed trace to mild pulmonic valvular regurgitation. DATE: 08/11/20 1317 HEART CATH HEART CATH Coronary angiography: LM: Large caliber vessel with normal angiographic appearance LAD: Large caliber vessel with mild luminal irregularities. D1: Small caliber vessel with normal angiographic appearance LCX: Moderate caliber non-dominant vessel with mild luminal irregularities OM1: Moderate caliber vessel with patent previously placed overlapping stents. RCA: Large caliber dominant vessel with a mid 40% stenosis. RPDA: Moderate caliber vessel with mild luminal irregularities. CLOSURE: At case completion the right radial sheath was removed and a Terumo radial band was applied with 11 mL of air. Hemostasis was achieved. COMPLICATIONS: No acute complications noted Conclusion 1. One vessel CAD with patent OM1 stents. No signficant change compared to 2017. Recommendations Aggressive Medical Therapy DATE: 11/22/20 [id number] ASSESSMENT/PLAN ASSESSMENT/PLAN 1. Atypical chest pain: Noncardiac. potentially related to renal stone.. Also notable for burning upon urination as well 2. HTN: labile episodes initially but now controlled 3. HLP 4. CAD; Recent LHC showed patent OM1 stents 5. DM2 6. ROSITA: CPAP compliant 7. GERD 8. Hx of Asymptomatic SB 9. Hx of mild CM: compensated Recommendations 1. Continue secondary prevention measures and BP regimen 2. Continue home PPI 3. UA 4. No further cardiac workup, follow up with Dr. St as an outpt his special procedure tech. ITZ FORMAN MD 02/17/21 1701: CARDIAC CONSULT ASSESSMENT/PLAN ASSESSMENT/PLAN Agree with CONCRETE CRUSHER LOADER OPERATOR's assessment and plan. Chest pain with atypical features. Myocardial infarction has been ruled out. Recent cardiac catheterization showed patent OM stents without any lesions needing intervention Blood pressure better controlled Okay for DC from cardiac standpoint Follow-up with primary special procedure tech LEXIE DAN APRN Feb 17, 2021 12:17 ITZ FORMAN MD Feb 17, 2021 17:01
--- NOTE | 2021-02-17 12:41 | PDOC3 ---
Discharge Summary Date of Admission: Feb 16, 2021 Date of Discharge: Feb 17, 2021 Follow-Up: 3-5 days Admitting Diagnosis comment: VTE Prophylaxis Ordered VTE Prophylaxis Devices: No VTE Pharmacological Prophylaxi: Yes D/C CONDITION GOOD COMPLICATIONS NONE F/U PCP ONE WEEK D/C MEDS SEE MAR PROCEDURES CVC MONITORING CONSULTS CARDIOLOGY DISCHARGE DX Assessment/Plan IMPRESSION ANGINA, STABLE Essential hypertension GERD One vessel CAD with patent OM1 stents. No signficant change compared to 2016. 12-02 cath sleep apnea diabetes plan admit cvc bed consult cardiology trend troponin i echo dvt prophylaxis ss insulin home meds D/W RN Justifications for Admission Justifications for Admission Other Justification History of Present Illness History of Present Illness 65-year-old male past medical history significant for diabetes, CAD w/2 JULIETA (2017 last cath) , hypertension, GERD and HFrEF (45%) presents the ED with complaints of left sided midaxillary mid thoracic pain described as "pins, heavy pressure, sore and goes numb," that radiates to left anterior chest and into his left armpit for the past week. Patient states has been constant all day , TROPONIN I neg x 3 since admit, will plan d/c of ok with cardiology Past Medical History Past Medical History Past Medical History Past Medical History: Diabetes-Type II, GERD, Hypertension Additional Past Medical Histor: urinary retention, SLEEP APNEA, GOUT, BPH, Past Surgical History: Cholecystectomy, Other Additional Past Surgical Histo: cardiac cath Smoking Status: Never Smoker Alcohol Use: Occasionally Drug Use: None FHX OBESITY Cardiovascular: CAD, CHF, HTN, Mitral valve stenosis, Valve insufficiency, Pulmonary hypertension Pulmonary: Other CENTRAL NERVOUS SYSTEM: Other GI: GERD, Other Heme/Onc: No pertinent hx Hepatobiliary: No pertinent hx Psych: No pertinent hx Musculoskeletal: Osteoarthritis Infectious disease: No pertinent hx Renal/: Benign prostatic enlarg. Endocrine: Diabetes Past Surgical History Past Surgical History: No pertinent history Family History Family History: Coronary Artery Disease, High Cholestrol, Hypertension Social History Smoke: No ALCOHOL: none Drugs: None Current Medications Current Medications Active Scripts Active Percocet 5-325 Mg Tablet (Oxycodone/Acetaminophen) 1 Each Tablet 1 Tab PO PRN Q4HRS PRN Reported Lisinopril 20 Mg Tablet 1 Tab PO DAILY Dexilant (Dexlansoprazole) 60 Mg Cap.drRupalmp 1 Cap PO DAILY 30 Days Tylenol Extra Strength (Acetaminophen) 500 Mg Tablet 500 Mg PO PRN Q6HRS PRN Amlodipine Besylate 10 Mg Tablet 10 Mg PO DAILY Atorvastatin Calcium 80 Mg Tablet 80 Mg PO HS Lasix (Furosemide) 40 Mg Tablet 1 Tab PO DAILY Potassium Chloride (Potassium Chloride) 20 Meq Tablet.er 20 Meq PO DAILY Aspirin 81 Mg Tab.chew 1 Tab PO DAILY Tamsulosin Hcl 0.4 Mg Cap.er.24h 1 Cap PO HS Allergies Allergies: Coded Allergies: No Known Drug Allergies (Unverified , 12/20/20) ROS General: No: Chills, Night Sweats, Fatigue, Malaise, Appetite, Other PSYCHOLOGICAL ROS: No: Anxiety, Behavioral Disorder, Concentration difficultie, Decreased libido, Depression, Disorientation, Hallucinations, Hostility, Irritablity, Memory difficulties, Mood Swings, Obsessive thoughts, Physical abuse, Sexual abuse, Sleep disturbances, Suicidal ideation, Other Eyes: No Blurry vision, No Decreased vision, No Double vision, No Dry eyes, No Excessive tearing, No Eye Pain, No Itchy Eyes, No Loss of vision, No Photophobia, No Scotomata, No Uses contacts, No Uses glasses, No Other HEENT: No: Heacaches, Visual Changes, Hearing change, Nasal congestion, Nasal discharge, Oral lesions, Sinus pain, Sore Throat, Epistaxis, Sneezing, Snoring, Tinnitus, Vertigo, Vocal changes, Other ALLERGY AND IMMUNOLOGY: No: Hives, Insect Bite Sensitivity, Itchy/Watery Eyes, Nasal Congestion, Post Nasal Drip, Seasonal Allergies, Other Hematological and Lymphatic: No: Bleeding Problems, Blood Clots, Blood Transfusions, Brusing, Night Sweats, Pallor, Swollen Lymph Nodes, Other ENDOCRINE: No: Breast Changes, Galactorrhea, Hair Pattern Changes, Hot Flashes, Malaise/lethargy, Mood Swings, Palpitations, Polydipsia/polyuria, Skin Changes, Temperature Intolerance, Unexpected Weight Changes, Other Breast: No New/Changing Breast Lumps, No Nipple changes, No Nipple discharge, No Other Respiratory: No: Cough, Hemoptysis, Orthopnea, Pleuritic Pain, Shortness of breath, SOB with excertion, Sputum Changes, Stridor, Tachypnea, Wheezing, Other Cardiovascular: yes Chest Pain; No Palpitations, No Orthopnea, No Paroxysmal Noc. Dyspnea, No Edema, No Lt Headedness, No Other Gastrointestinal: No Nausea, No Vomiting, No Abdominal Pain, No Diarrhea, No Constipation, No Melena, No Hematochezia, No Other Genitourinary: No Dysuria, No Frequency, No Incontinence, No Hematuria, No Retention, No Discharge, No Urgency, No Pain, No Flank Pain, No Other, No , No , No , No , No , No , No Musculoskeletal: Yes Joint Stiffness; No Gait Disturbance, No Joint Pain, No Joint Swelling, No Muscle Pain, No Muscular Weakness, No Pain In:, No Swelling In:, No Other Neurological: No Behavorial Changes, No Bowel/Bladder ControlChng, No Confusion, No Dizziness, No Gait Disturbance, No Headaches, No Impaired Coord/balance, No Memory Loss, No Numbness/Tingling, No Seizures, No Speech Problems, No Tremors, No Visual Changes, No Weakness, No Other Skin: No Dry Skin, No Eczema, No Hair Changes, No Lumps, No Mole Changes, No Mottling, No Nail Changes, No Pruritus, No Rash, No Skin Lesion Changes, No Other, No Acne Physical Exam General: Alert, Oriented X3, Cooperative, No acute distress HEENT: Atraumatic, PERRLA Lungs: Clear to auscultation, Normal air movement Heart: S1S2, RRR, no thrills, no gallops Breasts: Not examined Abdomen: Normal bowel sounds, Soft Rectal Exam: not examined Extremities: No cyanosis Neuro: Normal speech, Strength at 5/5 X4 ext, Cranial nerves 3-12 NL Psych/Mental Status: Mental status NL, Mood NL Brief Hospital Course Mr. Connell is a 65 old [sex] who presented with [ CHEST PAIN] CONDITION AT DISCHARGE: Improved Discharge Medications Current Medications Acetaminophen (Tylenol) 500 mg PRN Q6HRS PRN PO HEADACHE; Start 02/17/21 at 09:15 Amlodipine Besylate (Norvasc) 10 mg DAILY PO Last administered on 02/17/21at 1 1:03; Start 02/17/21 at 10:00 Aspirin (Aspirin Chewable) 81 mg DAILY PO Last administered on 02/17/21at 11:02; Start 02/17/21 at 10:00 Furosemide (Lasix) 40 mg DAILY PO Last administered on 02/17/21at 11:03; Start 02/17/21 at 10:00 Lisinopril (Prinivil) 20 mg DAILY PO Last administered on 02/17/21at 11:04; Start 02/17/21 at 10:00 Oxycodone/ Acetaminophen (Percocet 5/325) 1 tab PRN Q4HRS PRN PO MODERATE PAIN; Start 02/17/21 at 09:15 Potassium Chloride (Klor-Con) 20 meq DAILY PO Last administered on 02/17/21at 11:03; Start 02/17/21 at 10:00 Tamsulosin HCl (Flomax) 0.4 mg HS PO ; Start 02/17/21 at 21:00 Atorvastatin Calcium (Lipitor) 80 mg QHS PO ; Start 02/17/21 at 21:00 Pantoprazole Sodium (Protonix) 40 mg DAILYAC PO Last administered on 02/17/21at 11:03; Start 02/17/21 at 11:30 Oxybutynin Chloride (Ditropan) 5 mg BID PO Last administered on 02/17/21at 11:35; Start 02/17/21 at 11:30 Active Scripts Active Percocet 5-325 Mg Tablet (Oxycodone/Acetaminophen) 1 Each Tablet 1 Tab PO PRN Q4HRS PRN Reported Oxybutynin Chloride 5 Mg Tablet 5 Mg PO BID Lisinopril 20 Mg Tablet 1 Tab PO DAILY Dexilant (Dexlansoprazole) 60 Mg Steven.mp 1 Cap PO DAILY 30 Days Tylenol Extra Strength (Acetaminophen) 500 Mg Tablet 500 Mg PO PRN Q6HRS PRN Amlodipine Besylate 10 Mg Tablet 10 Mg PO DAILY Atorvastatin Calcium 80 Mg Tablet 80 Mg PO HS Lasix (Furosemide) 40 Mg Tablet 1 Tab PO DAILY Potassium Chloride (Potassium Chloride) 20 Meq Tablet.er 20 Meq PO DAILY Aspirin 81 Mg Tab.chew 1 Tab PO DAILY Tamsulosin Hcl 0.4 Mg Cap.er.24h 1 Cap PO HS Vital Signs Vital Signs Date Time Temp Pulse Resp B/P (MAP) Pulse Ox O2 Delivery O2 Flow Rate FiO2 02/17/21 11:04 65 02/17/21 11:01 98.4 20 136/79 (98) 98 Room Air 98.4 Labs Laboratory Tests Test 02/16/21 11:36 02/16/21 20:23 02/16/21 23:40 02/17/21 05:00 Urine Opiates Screen Neg (NEG) Urine Methadone Screen Neg (NEG) Urine Barbiturates Neg (NEG) Urine Phencyclidine Screen Neg (NEG) Urine Amphetamine/Methamphetamine Neg (NEG) Urine Benzodiazepines Screen Neg (NEG) Urine Cocaine Screen Neg (NEG) Urine Cannabinoids Screen Neg (NEG) Urine Ethyl Alcohol Neg (NEG) White Blood Count 7.3 x10^3/uL (4.0-11.0) Red Blood Count 4.37 x10^6/uL (4.30-5.70) Hemoglobin 13.1 g/dL (13.0-17.5) Hematocrit 39.4 % (39.0-53.0) Mean Corpuscular Volume 90 fL (79-100) Mean Corpuscular Hemoglobin 30 pg (25-35) Mean Corpuscular Hemoglobin Concent 33 g/dL (31-37) Red Cell Distribution Width 13.6 % (11.5-14.5) Platelet Count 144 x10^3/uL (140-400) Neutrophils (%) (Auto) 66 % (31-73) Lymphocytes (%) (Auto) 21 % (24-48) Monocytes (%) (Auto) 7 % (0-9) Eosinophils (%) (Auto) 5 % (0-3) Basophils (%) (Auto) 1 % (0-3) Neutrophils # (Auto) 4.8 x10^3/uL (1.8-7.7) Lymphocytes # (Auto) 1.5 x10^3/uL (1.0-4.8) Monocytes # (Auto) 0.5 x10^3/uL (0.0-1.1) Eosinophils # (Auto) 0.4 x10^3/uL (0.0-0.7) Basophils # (Auto) 0.0 x10^3/uL (0.0-0.2) Sodium Level 140 mmol/L (136-145) 140 mmol/L (136-145) Potassium Level 4.0 mmol/L (3.5-5.1) 3.9 mmol/L (3.5-5.1) Chloride Level 102 mmol/L (98-107) 104 mmol/L (98-107) Carbon Dioxide Level 26 mmol/L (21-32) 27 mmol/L (21-32) Anion Gap 12 (6-14) 9 (6-14) Blood Urea Nitrogen 12 mg/dL (8-26) 10 mg/dL (8-26) Creatinine 1.1 mg/dL (0.7-1.3) 0.9 mg/dL (0.7-1.3) Estimated GFR (Cockcroft-Gault) 80.8 101.8 BUN/Creatinine Ratio 11 (6-20) Glucose Level 134 mg/dL (70-99) 89 mg/dL (70-99) Calcium Level 8.7 mg/dL (8.5-10.1) 8.7 mg/dL (8.5-10.1) Magnesium Level 1.9 mg/dL (1.8-2.4) Total Bilirubin 0.5 mg/dL (0.2-1.0) Aspartate Amino Transf (AST/SGOT) 54 U/L (15-37) Alanine Aminotransferase (ALT/SGPT) 92 U/L (16-63) Alkaline Phosphatase 71 U/L (46-116) Troponin I Quantitative 0.034 ng/mL (0.000-0.055) 0.026 ng/mL (0.000-0.055) 0.035 ng/mL (0.000-0.055) IZ-Rhi-J-Type Natriuretic Peptide 93 pg/mL (0-124) Total Protein 7.4 g/dL (6.4-8.2) Albumin 3.8 g/dL (3.4-5.0) Albumin/Globulin Ratio 1.1 (1.0-1.7) Lipase 145 U/L (73-393) Test 02/17/21 11:36 Urine Collection Type Unknown Urine Color Yellow Urine Clarity Clear Urine pH 8.0 (<5.0-8.0) Urine Specific [place] 1.010 (1.000-1.030) Urine Protein Negative mg/dL (NEG-TRACE) Urine Glucose (UA) Negative mg/dL (NEG) Urine Ketones (Stick) Negative mg/dL (NEG) Urine Blood Negative (NEG) Urine Nitrite Negative (NEG) Urine Bilirubin Negative (NEG) Urine Urobilinogen Dipstick 1.0 mg/dL (0.2 mg/dL) Urine Leukocyte Esterase Negative (NEG) Urine RBC 0 /HPF (0-2) Urine WBC 0 /HPF (0-4) Urine Squamous Epithelial Cells Few /LPF Urine Bacteria 0 /HPF (0-FEW) Laboratory Tests Test 02/16/21 20:23 02/16/21 23:40 02/17/21 05:00 02/17/21 11:36 White Blood Count 7.3 x10^3/uL (4.0-11.0) Red Blood Count 4.37 x10^6/uL (4.30-5.70) Hemoglobin 13.1 g/dL (13.0-17.5) Hematocrit 39.4 % (39.0-53.0) Mean Corpuscular Volume 90 fL (79-100) Mean Corpuscular Hemoglobin 30 pg (25-35) Mean Corpuscular Hemoglobin Concent 33 g/dL (31-37) Red Cell Distribution Width 13.6 % (11.5-14.5) Platelet Count 144 x10^3/uL (140-400) Neutrophils (%) (Auto) 66 % (31-73) Lymphocytes (%) (Auto) 21 % (24-48) Monocytes (%) (Auto) 7 % (0-9) Eosinophils (%) (Auto) 5 % (0-3) Basophils (%) (Auto) 1 % (0-3) Neutrophils # (Auto) 4.8 x10^3/uL (1.8-7.7) Lymphocytes # (Auto) 1.5 x10^3/uL (1.0-4.8) Monocytes # (Auto) 0.5 x10^3/uL (0.0-1.1) Eosinophils # (Auto) 0.4 x10^3/uL (0.0-0.7) Basophils # (Auto) 0.0 x10^3/uL (0.0-0.2) Sodium Level 140 mmol/L (136-145) 140 mmol/L (136-145) Potassium Level 4.0 mmol/L (3.5-5.1) 3.9 mmol/L (3.5-5.1) Chloride Level 102 mmol/L (98-107) 104 mmol/L (98-107) Carbon Dioxide Level 26 mmol/L (21-32) 27 mmol/L (21-32) Anion Gap 12 (6-14) 9 (6-14) Blood Urea Nitrogen 12 mg/dL (8-26) 10 mg/dL (8-26) Creatinine 1.1 mg/dL (0.7-1.3) 0.9 mg/dL (0.7-1.3) Estimated GFR (Cockcroft-Gault) 80.8 101.8 BUN/Creatinine Ratio 11 (6-20) Glucose Level 134 mg/dL (70-99) 89 mg/dL (70-99) Calcium Level 8.7 mg/dL (8.5-10.1) 8.7 mg/dL (8.5-10.1) Magnesium Level 1.9 mg/dL (1.8-2.4) Total Bilirubin 0.5 mg/dL (0.2-1.0) Aspartate Amino Transf (AST/SGOT) 54 U/L (15-37) Alanine Aminotransferase (ALT/SGPT) 92 U/L (16-63) Alkaline Phosphatase 71 U/L (46-116) Troponin I Quantitative 0.034 ng/mL (0.000-0.055) 0.026 ng/mL (0.000-0.055) 0.035 ng/mL (0.000-0.055) II-Qwd-G-Type Natriuretic Peptide 93 pg/mL (0-124) Total Protein 7.4 g/dL (6.4-8.2) Albumin 3.8 g/dL (3.4-5.0) Albumin/Globulin Ratio 1.1 (1.0-1.7) Lipase 145 U/L (73-393) Urine Collection Type Unknown Urine Color Yellow Urine Clarity Clear Urine pH 8.0 (<5.0-8.0) Urine Specific [place] 1.010 (1.000-1.030) Urine Protein Negative mg/dL (NEG-TRACE) Urine Glucose (UA) Negative mg/dL (NEG) Urine Ketones (Stick) Negative mg/dL (NEG) Urine Blood Negative (NEG) Urine Nitrite Negative (NEG) Urine Bilirubin Negative (NEG) Urine Urobilinogen Dipstick 1.0 mg/dL (0.2 mg/dL) Urine Leukocyte Esterase Negative (NEG) Urine RBC 0 /HPF (0-2) Urine WBC 0 /HPF (0-4) Urine Squamous Epithelial Cells Few /LPF Urine Bacteria 0 /HPF (0-FEW) Allergies Allergies Coded Allergies Type Severity Reaction Last Updated Verified No Known Drug Allergies 12/20/20 No Disposition/Orders: D/C to Home Justicifation of Admission Dx: Justifications for Admission: Justification of Admission Dx: No VICTOR M SWEENEY MD Feb 17, 2021 12:41
--- NOTE | 2021-02-17 12:46 | DISCH ---
DISCHARGE INSTRUCTIONS Condition on Discharge Condition on Discharge: Stable Activity After Discharge Activity Instructions for Disc: Activity as tolerated, Avoid exertion Lifting Instructions after Dis: No heavy lifting, No pulling or pushing, Do not lift >10 pounds Exercise Instruction after Dis: Walk 10 min, 3 x per day, Progress as tolerated Driving Instructions after Dis: Do not drive today Weight Bearing Status after Di: Full weight bearing Diet after Discharge Diet after Discharge: Cardiac, Regular Diet Texture: Regular Liquid Texture: Thin Liquid Swallowing Supervision: None needed Wound Incision Care Wound/Incision Care: May get incision wet Checks after Discharge Checks after discharge: Check blood press - daily Contacting the DRRupal after DC Call your doctor for: If your condition worsens Follow-Up Follow up with: PCP ONE WEEK Treatment/Equipment after DC Adaptive Equipment Issued: None VICTOR M SWEENEY MD Feb 17, 2021 12:46
--- NOTE | 2021-02-17 13:48 | NUR ---
SS following for discharge planning. SS reviewed pt chart and discussed with pt RN. Pt is from home and is currently on room air. Discharge order on the chart for home with self care.
--- NOTE | 2021-02-17 14:57 | NUR ---
Discharge: Discharge teaching verbal and written. Reviewed medications, follow-up, chest pain, cardiac diet, ect. Patient verbalized understanding. All belongings with patient including home medications. IV removed without complications, catheter tip intact. Patient ambulated off of unit. Patient drove himself
[2021-02-17] MEDS ORDERED: TAMSULOSIN 0.4 MG CAP.ER.24H. PO SCH (21:00)
[2021-02-17] MEDS ORDERED: ATORVASTATIN CALCIUM 40 MG TABLET. PO SCH (21:00)
== END 2021-02-17 14:30 | disposition home or self-care (01) ==
LOC: ER 20:04 → 2 NORTH 21:35
PROVIDERS: ADMIT Internal Medicine; ATTEND Internal Medicine
DX: I20.9 Angina pectoris, unspecified (principal); G47.33 Obstructive sleep apnea (adult) (pediatric); E11.9 Type 2 diabetes mellitus without complications; K21.9 Gastro-esophageal reflux disease without esophagitis; R33.9 Retention of urine, unspecified; M10.9 Gout, unspecified; N40.1 Benign prostatic hyperplasia with lower urinary tract symptoms; I11.0 Hypertensive heart disease with heart failure; I50.22 Chronic systolic (congestive) heart failure; E78.5 Hyperlipidemia, unspecified; I05.0 Rheumatic mitral stenosis; M19.90 Unspecified osteoarthritis, unspecified site; Z90.49 Acquired absence of other specified parts of digestive tract; Z98.890 Other specified postprocedural states; Z79.82 Long term (current) use of aspirin; Z79.899 Other long term (current) drug therapy; Z87.19 Personal history of other diseases of the digestive system
CPT/HCPCS: 36415; 71045; 80048; 80053; 80307; 81001; 83690; 83735; 83880; 84484; 85025; 93005; 99285; G0378; G0379

== ENCOUNTER 2021-07-19 20:15 | Emergency (ER) | payer MEDICARE ==
[~2021-07-19] VITALS: Ht 172.7 cm; Wt 101.8 kg
[~2021-07-19 20:15] MED LIST changes: -CLIN150C15 PO; +CLIN150C16 PO; +OXYB5TAB10 PO
[2021-07-19 23:13] LABS: BASO # 0.1 x10^3/uL (0.0-0.2); BASO % 1 % (0-3); EOS # 0.5 x10^3/uL (0.0-0.7); EOS % 5 % (0-3); HEMATOCRIT 39.2 % (39.0-53.0); HEMOGLOBIN 13.1 g/dL (13.0-17.5); LYMPH % 19 % (24-48); MEAN CORPUSCULAR HEMOGLOBIN 31 pg (25-35); MEAN CORPUSCULAR HGB CONC 34 g/dL (31-37); MEAN CORPUSCULAR VOLUME 92 fL (79-100); MONO # 1.1 x10^3/uL (0.0-1.1); MONO % 11 % (0-9); NEUT # 6.5 x10^3/uL (1.8-7.7); NEUT % 63 % (31-73); PLATELET COUNT 176 x10^3/uL (140-400); RED BLOOD COUNT 4.27 x10^6/uL (4.30-5.70); RED CELL DISTRIBUTION WIDTH 14.3 % (11.5-14.5); WHITE BLOOD COUNT 10.3 x10^3/uL (4.0-11.0)
--- NOTE | 2021-07-19 23:14 | EKG ---
[facility] [address] [place] [address] Test Date: 2021-07-19 Test Time: 22:50:59 Pat Name: KEYON GREEN Department: Room: Gender: M Director [employer]: : 1955 Requested By: JANETH JOHNSON Order Number: [id number] Reading MD: Quintin Roger MD Measurements Intervals [place] Rate: 62 P: 49 MD: 158 QRS: 18 QRSD: 72 T: 48 QT: 398 QTc: 406 Interpretive Statements SINUS RHYTHM Electronically Signed On 07-21-2021 9:07:11 CDT by Quintin Roger MD
[2021-07-19 23:24] LABS: CALCIUM 9.2 mg/dL (8.5-10.1); CREATININE 1.3 mg/dL (0.7-1.3); GFR 66.6; POTASSIUM 4.5 mmol/L (3.5-5.1)
[2021-07-19 23:30] LABS: ALBUMIN 3.9 g/dL (3.4-5.0); ALBUMIN/GLOBULIN RATIO 0.9 (1.0-1.7); MAGNESIUM 2.1 mg/dL (1.8-2.4); TOTAL BILIRUBIN 0.5 mg/dL (0.2-1.0); TOTAL PROTEIN 8.1 g/dL (6.4-8.2)
--- NOTE | 2021-07-20 00:17 | RAD ---
Chest AP portable at 2309: Reason for examination: Left upper quadrant pain. Comparison is made to previous study dated 02/16/2021. The heart size is normal. Mediastinum is unremarkable. Lung roach are clear. No acute bony abnormali ties are seen. IMPRESSION: No acute cardiopulmonary disease evident. Electronically signed by: Svetlana Koch MD (07/20/2021 12:15 AM) [facility]
--- NOTE | 2021-07-20 00:35 | PHYS DOC ---
Past Medical History Past Medical History: Diabetes-Type II, GERD, Hypertension Additional Past Medical Histor: urinary retention, SLEEP APNEA, GOUT, BPH, Past Surgical History: Cholecystectomy, Other Additional Past Surgical Histo: cardiac cath Smoking Status: Never Smoker Alcohol Use: Occasionally Additional Information: "ABOUT A COUPLE BEERS A FEW TIMES A WEEK" Drug Use: None General Adult EDM: Chief Complaint: HEADACHE HPI: HPI: 65 yo M CAD w/JULIETA (on no AC), borderline DM, HTN and HLD presents to the ed with c/o "pinch in my side," that has been intermittent "for years" stating my heart doctor says nothing is wrong. Follows with Dr. Mao Sparks, cannot recall last stress test. Reports pain was worse last night around 4:35 PM and he took 2 ibuprofen with some relief. States it feels like a muscle spasm that comes and goes but today it lasted for 1 hour. Reports pain is not as bad as it was last night at 5 PM when he was lying down watching TV. Pain is not positional in nature. Denies associated cocaine or alcohol abuse, "I don't do drugs." Reports his covid vaccine is UTD. Reports normal bowel movements-no constipation, diarrhea or bloody stools. No personal or family history of AAA, AAD, CTD (ehlos danlos or marfans), cardiac arrhythmias (need for AICD), sudden or unexplainable (under 50 years of age or with exertion), or clotting disorders. Reports laproscopic cholecystectomy "3 months" ago. Pt also reports a mild, gradual onset headache for the past few hours stating "how high is my blood pressure?" Review of Systems: Review of Systems: Constitutional: Denies fever or chills. [] Eyes: Denies change in visual acuity. [] HENT: Denies nasal congestion or sore throat. [] Respiratory: Denies cough or shortness of breath or hemoptysis Cardiovascular: Denies syncope or edema. [] GI: Denies nausea, vomiting, bloody stools or diarrhea. [] : Denies dysuria or incontinence Musculoskeletal: Denies back pain or joint pain. [] Integument: Denies rash or diaphoresis Neurologic: Denies focal weakness or sensory changes. [] Endocrine: Denies polyuria or polydipsia. [] Lymphatic: Denies swollen glands. [] Psychiatric: Denies depression or anxiety. [] Heart Score: C/O Chest Pain: Yes HEART Score for Chest Pain: HEART Score for Chest Pain Response (Comments) Value History Slighlty/Non-Suspicious 0 ECG Normal 0 Age > 65 2 Risk Factors >3 Risk Factors or Hx CAD 2 Troponin < Normal Limit 0 Total 4 Risk Factors: Risk Factors: DM, Current or recent (<one month) smoker, HTN, HLP, family history of CAD, obesity. Risk Scores: Score 0 - 3: 2.5% MACE over next 6 weeks - Discharge Home Score 4 - 6: 20.3% MACE over next 6 weeks - Admit for Clinical Observation Score 7 - 10: 72.7% MACE over next 6 weeks - Early Invasive Strategies Allergies: Allergies: Allergies Coded Allergies Type Severity Reaction Last Updated Verified No Known Drug Allergies 12/20/20 No Physical Exam: PE: Constitutional: Well developed, well nourished, no acute distress, non-toxic appearance. HENT: Normocephalic, atraumatic, Eyes: PERRLA, EOMI, conjunctiva normal, no discharge. Neck: Normal range of motion, supple, Cardiovascular: S1/2 present, regular rhythm Lungs & Thorax: Speaking in full sentences, bilateral equal chest rise, no tachy pnea or increased work of breathing Abdomen: soft, no tenderness, cannot reproduce any abdominal tenderness, no peritonitis or rigidity or guarding Skin: Warm, dry, no erythema, no rash. [] Back: No tenderness, no CVA tenderness. [] Extremities: No tenderness, no cyanosis, no lower extremity edema Neurologic: Alert and oriented X 3, normal motor function, normal sensory function, no focal deficits noted. [] Psychologic: Affect normal, judgement normal, mood normal. [] Current Patient Data: Labs: Laboratory Tests Test 07/19/21 22:51 White Blood Count 10.3 x10^3/uL (4.0-11.0) Red Blood Count 4.27 x10^6/uL (4.30-5.70) L Hemoglobin 13.1 g/dL (13.0-17.5) Hematocrit 39.2 % (39.0-53.0) Mean Corpuscular Volume 92 fL (79-100) Mean Corpuscular Hemoglobin 31 pg (25-35) Mean Corpuscular Hemoglobin Concent 34 g/dL (31-37) Red Cell Distribution Width 14.3 % (11.5-14.5) Platelet Count 176 x10^3/uL (140-400) Neutrophils (%) (Auto) 63 % (31-73) Lymphocytes (%) (Auto) 19 % (24-48) L Monocytes (%) (Auto) 11 % (0-9) H Eosinophils (%) (Auto) 5 % (0-3) H Basophils (%) (Auto) 1 % (0-3) Neutrophils # (Auto) 6.5 x10^3/uL (1.8-7.7) Lymphocytes # (Auto) 2.0 x10^3/uL (1.0-4.8) Monocytes # (Auto) 1.1 x10^3/uL (0.0-1.1) Eosinophils # (Auto) 0.5 x10^3/uL (0.0-0.7) Basophils # (Auto) 0.1 x10^3/uL (0.0-0.2) Sodium Level 138 mmol/L (136-145) Potassium Level 4.5 mmol/L (3.5-5.1) Chloride Level 101 mmol/L (98-107) Carbon Dioxide Level 29 mmol/L (21-32) Anion Gap 8 (6-14) Blood Urea Nitrogen 20 mg/dL (8-26) Creatinine 1.3 mg/dL (0.7-1.3) Estimated GFR (Cockcroft-Gault) 66.6 BUN/Creatinine Ratio 15 (6-20) Glucose Level 123 mg/dL (70-99) H Calcium Level 9.2 mg/dL (8.5-10.1) Magnesium Level 2.1 mg/dL (1.8-2.4) Total Bilirubin 0.5 mg/dL (0.2-1.0) Aspartate Amino Transferase (AST) 32 U/L (15-37) Alanine Aminotransferase (ALT) 63 U/L (16-63) Alkaline Phosphatase 60 U/L (46-116) Troponin I Quantitative 0.042 ng/mL (0.000-0.055) Total Protein 8.1 g/dL (6.4-8.2) Albumin 3.9 g/dL (3.4-5.0) Albumin/Globulin Ratio 0.9 (1.0-1.7) L Lipase 198 U/L (73-393) Laboratory Tests 07/19/21 22:51 Laboratory Tests 07/19/21 22:51 Vital Signs: Vital Signs Date Time Temp Pulse Resp B/P (MAP) Pulse Ox O2 Delivery O2 Flow Rate FiO2 07/19/21 22:30 98.3 78 147/82 (98) 99 Room Air 98.3 EKG: EKG: Sinus rhythm 62 bpm, no axis deviation, normal intervals,no TWIs, no STEs/no STDs Radiology/Procedures: Radiology/Procedures: IMAGING REPORT Signed PATIENT: KEYON GREEN ACCOUNT: [id number] : 1955 LOCATION: ER AGE: 65 SEX: M EXAM STATUS: REG ER ORD. PHYSICIAN: JANETH JOHNSON DO REASON: luq pain PROCEDURE: PORTABLE CHEST 1V Chest AP portable at 2309: Reason for examination: Left upper quadrant pain. Comparison is made to previous study dated 02/16/2021. The heart size is normal. Mediastinum is unremarkable. Lung roach are clear. No acute bony abnormalities are seen. IMPRESSION: No acute cardiopulmonary disease evident. Electronically signed by: Blanquita Romero MD (07/20/2021 12:15 AM) [facility] DICTATED and SIGNED BY: BLANQUITA ROMERO MD DATE: 07/20/21 [id number] 0 IMAGING REPORT Signed PATIENT: KEYON GREEN ACCOUNT: [id number] : 1955 LOCATION: ER AGE: 65 SEX: M EXAM STATUS: REG ER ORD. PHYSICIAN: JANETH JOHNSON DO REASON: luq pain;OMNI 300,75ML PROCEDURE: CT ABD PELV W/ IV CONTRST ONLY CT abdomen and pelvis with contrast: Reason for examination: Left upper quadrant abdominal pain. Helical images were obtained through the abdomen and pelvis with intravenous administration of 75 cc Omnipaque 300. Reconstruction was performed in sagittal and coronal planes. Exposure: One or more of the following individualized dose reduction techniques were utilized for this examination: 1. Automated exposure control 2. Adjustment of the mA and/or kV according to patient size 3. Use of iterative reconstruction technique. The lung bases are clear. The heart size is normal with no pericardial effusion. The liver shows diffuse fatty infiltration without a focal lesion. No abnormality seen at the spleen, pancreas or adrenal glands. The gallbladder surgically absent. The abdominal aorta and inferior vena cava show no acute abnormalities. No abnormality seen at the appendix. The colon shows no diverticulosis, diverticulitis or colitis. The small intestinal tract shows no abnormal dilatation, wall thickening or obstruction. No abnormality seen at the stomach or duodenum. The kidneys show no renal masses, renal calculi, hydronephrosis or evidence of obstructive uropathy. No abnormality seen at the bladder. Prostate gland is enlarged at 5 cm. No abnormality seen at the seminal vesicles. No free fluid or free air seen in the abdomen or pelvis. No acute bony abnormalities are seen. IMPRESSION: Fatty infiltration in the liver. Enlarged prostate gland. No other acute abnormality seen in the abdomen or pelvis. Electronically signed by: Blanquita Romero MD (07/20/2021 2:24 AM) [facility] DICTATED and SIGNED BY: BLANQUITA ROMERO MD DATE: 07/20/21 [id number] 0 Course & Med Decision Making: Course & Med Decision Making Pertinent Labs and Imaging studies reviewed. (See chart for details) Concern for chronic, intermittent, left upper quadrant abdominal pain which could represent atypical chest pain, 2 troponins are within normal limits, EKG with no ischemia and pain is atypical-"pinching" in nature. CT imaging w/normal appearing aorta, prostatomegaly and fatty liver. Labs unremarkable with normal lipase. No hematuria on urinalysis. Patient is hemodynamically stable and well appearing, in no distress. Will describe muscle relaxers with strict instruction to not drink alcohol, drive or operate heavy machinery with his med ications. Given long duration of symptoms and patient's heart score, I do recommend pt follow-up with his healthcare architect for further evaluation. I also recommended to consider GI evaluation for endoscopy. Pt reports his headache is mild, denies any trauma and is in no distress-admits he was worried too much about his blood pressure (educated no normal ranges of bp control). Will discharge home with strict ED return precautions were given for syncope, neurologic deficits, severe chest or back pain, chest tightness or heaviness or dyspnea. Encouraged urgent outpatient follow-up with PMD, cardiology and GI. Life-threatening processes were considered but are low suspicion at this time, given history, physical exam and ED workup. Pt was educated on all prescription medications and adverse effects. All patient's questions were answered and pt was stable at time of discharge. Life/limb-threatening differential includes but is not limited to, aortic dissection, aortic aneurysm, acute coronary syndrome, surgical abdomen (appendicitis, cholecystitis, ischemic bowel, strangulated hernia, etc), bowel obstruction or volvulus, bladder outlet obstruction, gastrointestinal bleeding, inflammatory bowel disease, peptic ulcer disease, ACS/CAD, sepsis, diverticular disease, ureterolithiasis, nephrolithiasis, ovarian or testicular torsion, ectopic , vaginal hemorrhage, or genitourinary infection. I have spoken with the patient and/or caregivers. I explained the patient's condition, diagnoses and treatment plan based on the information available to me at this time. I have answered the patient and/or caregiver's questions and addressed any concerns. The patient and/or caregivers have a good understanding of patient's diagnosis, condition and treatment plan as can be expected at this point. Vital signs have been stable. Patient's condition is stable and appropriate for discharge from the emergency department. Patient will pursue further outpatient evaluation with primary care physician or other designated or consulting physician as outlined in the discharge instructi ons. The patient and/or caregivers are agreeable to this plan of care and follow-up instructions have been explained in detail. The patient and/or caregivers have received these instructions in written form and have expressed an understanding of the discharge instructions. The patient and/or caregivers are aware that any significant change of condition or worsening of symptoms should prompt immediate return to this or the closest emergency department or call to 911. Elias Disclaimer: Elias Disclaimer: This electronic medical record was generated, in whole or in part, using a voice recognition dictation system. Departure Departure Impression: Primary Impression: Left upper quadrant abdominal pain Additional Impression: Headache Disposition: HOME / SELF CARE / HOMELESS Condition: STABLE Referrals: IGOR BRUNO MD (PCP) Follow-up with your primary care physician in 24 to 48 hours OR FOLLOW UP WITH FAMILY MEDICINE: [address] [place] [address] Patient Instructions: Abdominal Pain, General Headache Without Cause Additional Instructions: FOLLOW UP WITH CARDIOLOGY: FOR further evaluation of left upper quadrant abdominal pain [facility] [address] [place] [address] FOLLOW UP WITH GASTROENTEROLOGY: FOR further evaluation of left upper quadrant abdominal pain [facility] [address] [place] [address] EMERGENCY DEPARTMENT GENERAL DISCHARGE INSTRUCTIONS Thank you for coming to [facility] Emergency Department (ED) today and trusting us with you care. We trust that you had a positive experience in our Emergency Department. If you wish to speak to the department management, you may call the Director at [phone]. YOUR FOLLOW UP INSTRUCTIONS ARE FOLLOWS: 1. Do you have a private Doctor? If you do not have a private doctor, please ask for a resource list of physicians or clinics that may be able to assist you with follow up care. 2. The Emergency Physicain has interpreted your x-rays. The X-Ray specialist will also review them. If there is a change in the findings, you will be notified in 48 hours when at all possible. 3. A lab test or culture has been done, your results will be reviewed and you will be notified if you need a change in treatment. ADDITIONAL INSTRUCTIONS AND INFORMATION: 1. Your care today has been supervised by a physician who is specially trained in emergency care. Many problems require more than one evaluation for a complete diagnosis and treatment. We recommend that you schedule your follow up appointment as recommended to ensure complete treatment of you illness or injury. If you are unable to obtain follow up care and continue to have a problem, or if your condition worsens, we recommend that you return to the ED. 2. We are not able to safely determine your condition over the phone nor are we able to give sound medical advice over the phone. For these safety reasons, if you call for medical advice we will ask you to come to the ED for further evaluation. 3. If you have any questions regarding these discharge instructions please call the ED at [phone]. SAFETY INFORMATION: In the interest of safety, wellness, and injury prevention; we encourage you to wear your sealbelt, if you smoke; quite smoking, and we encourage family to use a protective helmet for bicycling and other sporting events that present an increased risk for head injury. IF YOUR SYMPTOMS WORSEN OR NEW SYMPTOMS DEVELOP, OR YOU HAVE CONCERNS ABOUT YOUR CONDITION; OR IF YOUR CONDITION WORSENS WHILE YOU ARE WAITING FOR YOUR FOLLOW UP APPOINTMENT; EITHER CONTACT YOUR PRIMARY CARE DOCTOR, THE PHYSICIAN WHOSE NAME AND NUMBER YOU WERE GIVEN, OR RETURN TO THE ED IMMEDIATELY. Scripts Methocarbamol (METHOCARBAMOL) 750 Mg Tablet 750 MG PO QID, #20 TAB Prov: JANETH JOHNSON DO 07/20/21 JANETH JOHNSON DO Jul 20, 2021 00:35
[2021-07-20] MEDS ORDERED: CONTRAST GIVEN. MC PRN (01:30)
[2021-07-20] MEDS ORDERED: IOHEXOL 300 MG/ML 100ML VIAL. IV ONE (01:30)
[2021-07-20 01:56] LABS: BILIRUBIN,URINE NEGATIVE (NEG); CLARITY,URINE CLEAR; COLOR,URINE YELLOW; NITRITE,URINE NEGATIVE (NEG); PROTEIN,URINE 30 mg/dL (NEG-TRACE)
[2021-07-20 02:08] LABS: BACTERIA,URINE 0 /HPF (0-FEW); RBC,URINE 0 /HPF (0-2); WBC,URINE 0 /HPF (0-4)
--- NOTE | 2021-07-20 02:27 | RAD ---
CT abdomen and pelvis with contrast: Reason for examination: Left upper quadrant abdominal pain. Helical images were obtained through the abdomen and pelvis with intravenous administration of 75 cc Omnipaque 300. Reconstruction was performed in sagittal and coronal planes. Exposure: One or more of the following individualized dose reduction techniques were utilized for thi s examination: 1. Automated exposure control 2. Adjustment of the mA and/or kV according to patient size 3. Use of iterative reconstruction technique. The lung bases are clear. The heart size is normal with no pericardial effusion. The liver shows diffuse fatty infiltration without a focal lesion. No abnormality seen at the spleen, pancreas or adrenal glands. The gallbladder surgically absent. The abdominal aorta and inferior vena cava show no acute abnormalities. No abnormality seen at the appendix. The colon shows no diverticul osis, diverticulitis or colitis. The small intestinal tract shows no abnormal dilatation, wall thicke jules or obstruction. No abnormality seen at the stomach or duodenum. The kidneys show no renal masses , renal calculi, hydronephrosis or evidence of obstructive uropathy. No abnormality seen at the bladder. Prostate gland is enlarged at 5 cm. No abnormality seen at the se georgina vesicles. No free fluid or free air seen in the abdomen or pelvis. No acute bony abnormalities are seen. IMPRESSION: Fatty infiltration in the liver. Enlarged prostate gland. No other acute abnormality seen in the abdomen or pelvis. Electronically signed by: Svetlana Koch MD (07/20/2021 2:24 AM) NAM
[2021-07-20] MEDS ORDERED: METH-562 PO (03:14)
[2021-07-20] MEDS ORDERED: KETOROLAC 15 MG/ML VIAL. IVP ONE (03:15)
[2021-07-20 03:16] VITALS: BP 153/68
[2021-07-20] MEDS ORDERED: IOHEXOL 300 MG/ML 100ML VIAL. ONE (05:42)
== END 2021-07-20 03:30 | disposition home or self-care (01) ==
LOC: ER 20:15
DX: R10.12 Left upper quadrant pain (principal); R51.9 Headache, unspecified; I10 Essential (primary) hypertension; E11.9 Type 2 diabetes mellitus without complications; K21.9 Gastro-esophageal reflux disease without esophagitis; M10.9 Gout, unspecified; N40.1 Benign prostatic hyperplasia with lower urinary tract symptoms; R33.8 Other retention of urine; Z90.49 Acquired absence of other specified parts of digestive tract; I25.10 Atherosclerotic heart disease of native coronary artery without angina pectoris
CPT/HCPCS: 36415; 71045; 74177; 80053; 81001; 83690; 83735; 84484; 85025; 93005; 96374; 99285; J1885; Q9967

== ENCOUNTER 2021-10-06 00:52 | Emergency (ER) | payer MEDICARE ==
[~2021-10-06] VITALS: Ht 172.7 cm; Wt 100.0 kg
[~2021-10-06 00:52] MED LIST changes: +METH-562 PO
[2021-10-06 01:24] LABS: BASO # 0.2 x10^3/uL (0.0-0.2); BASO % 2 % (0-3); EOS # 0.6 x10^3/uL (0.0-0.7); EOS % 8 % (0-3); HEMATOCRIT 41.1 % (39.0-53.0); HEMOGLOBIN 13.5 g/dL (13.0-17.5); LYMPH # 2.8 x10^3/uL (1.0-4.8); LYMPH % 36 % (24-48); MEAN CORPUSCULAR HEMOGLOBIN 30 pg (25-35); MEAN CORPUSCULAR HGB CONC 33 g/dL (31-37); MEAN CORPUSCULAR VOLUME 92 fL (79-100); MONO # 0.7 x10^3/uL (0.0-1.1); MONO % 9 % (0-9); NEUT # 3.4 x10^3/uL (1.8-7.7); NEUT % 44 % (31-73); PLATELET COUNT 149 x10^3/uL (140-400); RED BLOOD COUNT 4.45 x10^6/uL (4.30-5.70); RED CELL DISTRIBUTION WIDTH 13.3 % (11.5-14.5); WHITE BLOOD COUNT 7.6 x10^3/uL (4.0-11.0)
--- NOTE | 2021-10-06 01:24 | EKG ---
[facility] [address] [place] [address] Test Date: 2021-10-06 Test Time: 01:01:38 Pat Name: KEYON GREEN Department: Room: Gender: Parts Specialist: : 1955 Requested By: SHARRI ASUTDILLO Order Number: [id number] Reading MD: Michael Garcia Measurements Intervals [place] Rate: 74 P: 36 MD: 154 QRS: 9 QRSD: 76 T: 49 QT: 376 QTc: 422 Interpretive Statements SINUS RHYTHM ATRIAL PREMATURE COMPLEX(ES) Electronically Signed On 10-10-2021 10:37:50 SPIKE MACHINE OPERATOR by Michael Garcia
[2021-10-06 01:31] LABS: CALCIUM 8.9 mg/dL (8.5-10.1); CREATININE 1.2 mg/dL (0.7-1.3); GFR 72.9; POTASSIUM 3.8 mmol/L (3.5-5.1)
--- NOTE | 2021-10-06 01:35 | PHYS DOC ---
Past Medical History Past Medical History: Diabetes-Type II, GERD, Hypertension Additional Past Medical Histor: urinary retention, SLEEP APNEA, GOUT, BPH, Past Surgical History: Cholecystectomy, Other Additional Past Surgical Histo: cardiac cath Smoking Status: Never Smoker Alcohol Use: Occasionally Additional Information: beer tonight Drug Use: None General Adult EDM: Chief Complaint: CHEST PAIN HPI: HPI: Patient is a 66 year old male past medical history hypertension hyperlipidemia diabetes coronary artery disease presents with a chief complaint of chest pain. Patient states he has had chest pain on and off for 1 week. Pain is located in the left chest and it does not radiate. Patient denies any associated shortness of breath vomiting or diaphoresis. Patient states he has had some episodes of nausea. Patient states pain is in the left axilla. Current pain is been on and off for 1 week but states he has had the same type pain for many years. Patient was admitted several months back for the same pain thought to be related to a simultaneous flank pain that was going on at the time. Patient also states the flank pain still persist. During hospitalization at that time patient was evaluated by cardiology and pain thought to be noncardiac. 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 Review of Systems: Review of Systems: Review of systems: Constitutional symptoms- No fever, no chills. Eyes- No Discharge, No Visual Loss Respiratory symptoms- No shortness of breath, No wheezing, No Dyspnea on Exertion Cardiovascular Systems; No chest pain, No Palpitations, No syncope Gastrointestinal symptoms: NO abdominal pain, no nausea, no vomiting or diarrhea. Genitourinary symptoms: No dysuria. Musculoskeletal symptoms: No back pain No extremity pain. NEUROLOGICAL Symptoms: No headache, no generalized weakness; No focal Weakness Skin: No rash. Heart Score: C/O Chest Pain: Yes Risk Factors: Risk Factors: DM, Current or recent (<one month) smoker, HTN, HLP, family h istory of CAD, obesity. Risk Scores: Score 0 - 3: 2.5% MACE over next 6 weeks - Discharge Home Score 4 - 6: 20.3% MACE over next 6 weeks - Admit for Clinical Observation Score 7 - 10: 72.7% MACE over next 6 weeks - Early Invasive Strategies Allergies: Allergies: Allergies Coded Allergies Type Severity Reaction Last Updated Verified No Known Drug Allergies 12/20/20 No Physical Exam: PE: General: alert, no acute distress. Skin: warm, dry and intact, no erythema, no rash. HENT: bilateral external ears normal, oropharynx moist, nose normal. Head:: Normocephalic, atraumatic. Neck: Trachea midline. Eyes: EOMI, Normal conjunctiva, No drainage CARDIOVASCULAR: Regular rate and rhythm RESPIRATORY: No respiratory distress Back: Full range of motion. MUSCULOSKELETAL: Full range of motion of bilateral upper and lower extremities. GASTROINTESTINAL: Abdomen soft without rebound or guarding. NEUROLOGICAL: Alert and noted to person, place and time. No neurological def icits observed Psychiatric: Cooperative. Normal judgment Current Patient Data: Labs: Laboratory Tests Test 10/06/21 01:05 White Blood Count 7.6 x10^3/uL (4.0-11.0) Red Blood Count 4.45 x10^6/uL (4.30-5.70) Hemoglobin 13.5 g/dL (13.0-17.5) Hematocrit 41.1 % (39.0-53.0) Mean Corpuscular Volume 92 fL (79-100) Mean Corpuscular Hemoglobin 30 pg (25-35) Mean Corpuscular Hemoglobin Concent 33 g/dL (31-37) Red Cell Distribution Width 13.3 % (11.5-14.5) Platelet Count 149 x10^3/uL (140-400) Neutrophils (%) (Auto) 44 % (31-73) Lymphocytes (%) (Auto) 36 % (24-48) Monocytes (%) (Auto) 9 % (0-9) Eosinophils (%) (Auto) 8 % (0-3) H Basophils (%) (Auto) 2 % (0-3) Neutrophils # (Auto) 3.4 x10^3/uL (1.8-7.7) Lymphocytes # (Auto) 2.8 x10^3/uL (1.0-4.8) Monocytes # (Auto) 0.7 x10^3/uL (0.0-1.1) Eosinophils # (Auto) 0.6 x10^3/uL (0.0-0.7) Basophils # (Auto) 0.2 x10^3/uL (0.0-0.2) Laboratory Tests 10/06/21 01:05 Vital Signs: Vital Signs Date Time Temp Pulse Resp B/P (MAP) Pulse Ox O2 Delivery O2 Flow Rate FiO2 10/06/21 01:11 97.9 71 15 168/72 (104) 99 Room Air 97.9 EKG: EKG: Performed at 0101 Rate 74 Sinus rhythm with atrial premature complex No ST elevation No ST depression No acute OK [] Radiology/Procedures: Radiology/Procedures: [] Impression: Findings: The lungs are adequately and symmetrically inflated. No airspace consolidation, pleural effusion or pneumothorax. The cardiomediastinal silhouette and pulmonary vasculature are within normal limits. No acute osseous abnormality. Soft tissues are unremarkable. Impression: 1. No acute cardiopulmonary process. Course & Med Decision Making: Course & Med Decision Making Pertinent Labs and Imaging studies reviewed. (See chart for details) [] Patient was evaluated for chief complaint. Work-up consisted of laboratory analysis radiologic imaging and EKG. Results reviewed and discussed with patient. High-sensitivity troponin performed x2 both greater than 1 hour apart. Results 70s no acute change. EKG without acute ischemic changes chest x-ray within normal limits. Based upon my current work-up with no acute change on EKG and high-sensitivity troponins I do not believe patient's current pain is caused by ACS. Patient admits current pain has been ongoing for several months. At this time I feel the patient is safe for discharge. He will be discharged home with instructions to follow-up with his powerhouse electrician apprentice. Patient is requesting pain medications I will prescribe him hydrocodone Dragon Disclaimer: Elias Disclaimer: This electronic medical record was generated, in whole or in part, using a voice recognition dictation system. Departure Departure Impression: Primary Impression: Chest pain Disposition: HOME / SELF CARE / HOMELESS Condition: STABLE Referrals: IGOR BRUNO MD (PCP) Patient Instructions: Chest Pain (Nonspecific) Scripts Tramadol Hcl (ULTRAM) 50 Mg Tablet 1 TAB PO PRN Q6HRS PRN for pain MDD 4 Tablet(s) for 7 Days, #28 TAB 0 Refills Prov: BAUDILIOSHARRI Nate DO 10/06/21 BAUDILIOSHARRI Nate DO Oct 06, 2021 01:34
[2021-10-06 01:37] LABS: ALBUMIN/GLOBULIN RATIO 1.1 (1.0-1.7); TOTAL BILIRUBIN 0.2 mg/dL (0.2-1.0); TOTAL PROTEIN 7.7 g/dL (6.4-8.2)
--- NOTE | 2021-10-06 02:48 | RAD ---
XR CHEST 1V History: Chest pain Comparison: 07/19/2021 Technique: AP radiograph of the chest. Findings: The lungs are adequately and symmetrically inflated. No airspace consolidation, pleural effusion or p neumothorax. The cardiomediastinal silhouette and pulmonary vasculature are within normal limits. No acute osseous abnormality. Soft tissues are unremarkable. Impression: 1. No acute cardiopulmonary process. Electronically signed by: Alcides Kc MD (10/06/2021 2:46 AM) [facility]
[2021-10-06] MEDS ORDERED: ONDANSETRON PF 4 MG/2 ML VIAL. IVP ONE (03:45)
[2021-10-06] MEDS ORDERED: ASPIRIN CHEWABLE 81 MG TABLET. PO ONE (03:45)
[2021-10-06 04:30] VITALS: BP 148/69
[2021-10-06] MEDS ORDERED: TRAM-48 PO (04:41)
== END 2021-10-06 04:59 | disposition home or self-care (01) ==
LOC: ER 00:52
DX: R07.89 Other chest pain (principal); R10.9 Unspecified abdominal pain; I10 Essential (primary) hypertension; E78.5 Hyperlipidemia, unspecified; I25.10 Atherosclerotic heart disease of native coronary artery without angina pectoris; K21.9 Gastro-esophageal reflux disease without esophagitis; Z90.49 Acquired absence of other specified parts of digestive tract
CPT/HCPCS: 36415; 71045; 80053; 84484; 85025; 93005; 96374; 99285; J2405